=== PATIENT | male | born 1945 | race Caucasian/White ===

== ENCOUNTER → 2017-10-05 | Outpatient (CLI) | payer MEDICARE ==
--- NOTE | 2017-10-05 17:05 | CONS ---
CONSULTATION REASON FOR CONSULTATION: Consultation note for sleep apnea. PRIMARY CARE PHYSICIAN: Dr. Yazan Mcwilliams HISTORY OF PRESENT ILLNESS: This is a 72-year-old male patient coming in accompanied by his due to concerns of sleep apnea. The patient does not seem to be much concerned, however his is reporting snoring and she is reporting some apneas. She has witnessed some apneas. The patient goes to bed around 11:00 pm and within few hours he wakes up and sometimes he goes to a recliner when he sleeps on a recliner for the rest of the night and he ultimately gets out of bed and resumes activities around 7-8 o'clock in the morning. He is averaging 6 to 7 hours of sleep. He naps easily while watching TV or when he is inactive. He has been driving long distances to see family and he is able to drive 14 hours without having to fall asleep. No restlessness in the lower extremities. No nightmares. No grinding of the teeth. No anxiety or panic attacks. No obesity. No recent weight gain. No alcoholism. PAST MEDICAL HISTORY: Hyperlipidemia and BPH. PAST SURGICAL HISTORY: Includes tonsillectomy, arthroscopy of the knee and vasectomy and rotator cuff surgery. DRUG ALLERGIES: PENICILLIN. OUTPATIENT MEDICATIONS: Include Zocor 20 a day. Flomax 0.4 mg p.o. daily. SOCIAL HISTORY: The patient is a nonsmoker. No history of alcohol. No history of IV drugs. He is retired. FAMILY HISTORY: Negative for sleep apnea. REVIEW OF SYSTEMS: 12-point review of system was done. No history of insomnia. No history of nocturia. No choking or gasping for air. No sleepwalking. No dry mouth. No anxiety or panic attacks. No palpitation. No heartburn. No restlessness in the lower extremities. No sleep talking. No sweating. No anxiety. No claustrophobia. No sexual dysfunction. No history of depression. No history of any weight gain. PHYSICAL EXAMINATION: BP is 139/79, pulse 78, respirations 16, temp 98.3, saturation 99% on room air. Weight is 175, height is 5 feet 7 inches, neck size 14.5 inches. General appearance calm comfortable. HEENT: Mallampati Class 1. There is no goiter or neck masses. LUNGS: Clear to auscultation. HEART: Sounds regular rhythm. Normal S1, S2. No S3, S4. No murmurs. ABDOMEN: Soft, nontender. No organomegaly. EXTREMITIES: No edema. No cyanosis or clubbing. NEUROLOGIC: A and O x3. No focal neurological deficits. PSYCHIATRIC: No anxiety or depression or any panic. IMPRESSION: 1. Obstructive sleep apnea with overall low clinical suspicion. Currently under investigation. 2. Hyperlipidemia. 3. Benign prostatic hypertrophy. PLAN: 1. Home sleep study will be ordered. 2. We will review the results of the home sleep study and make further recommendations accordingly. 3. Overall suspicion for clinical assessment of KOBI is low. MMODL / IJN: [id number] /
== END ==
LOC: SLEEP 15:10
PROVIDERS: ATTEND Internal Medicine Critical Care Medicine
DX: G47.33 Obstructive sleep apnea (adult) (pediatric) (principal); E78.5 Hyperlipidemia, unspecified; N40.0 Benign prostatic hyperplasia without lower urinary tract symptoms; Z88.0 Allergy status to penicillin; Z79.899 Other long term (current) drug therapy
CPT/HCPCS: 99211

== ENCOUNTER 2022-04-09 06:34 | Day surgery (SDC) | payer MEDICARE ==
[2022-04-08 09:14] VITALS: BMI 25.4
[~2022-04-09 06:34] MED LIST: ALPRAZolam 0.25 MG TAB PO PRN; ALPRAZolam 0.5 MG TAB PO PRN; ASPIRIN 325 MG TAB PO STA; ATORVASTATIN 80 MG TAB PO STA; HEPARIN SODIUM,PORCINE 10,000 UNIT in SODIUM CHLORIDE 0.9% 1,000 ML IRRIGATION PRN; HEPARIN SODIUM,PORCINE 2,500 UNIT in SODIUM CHLORIDE 0.9% 250 ML IRRIGATION PRN; NITROGLYCERIN SL TABS 0.4 MG TAB SUBLINGUAL PRN; SODIUM CHLORIDE 0.9% 1,000 ML in EMPTY BAG 1 BAG IV ONE
[2022-04-09] MEDS ORDERED: SODIUM CHLORIDE 0.9% 1,000 ML IV ONE (06:49)
[2022-04-09 07:05] VITALS: RESP 16; TEMP 97.8
[2022-04-09] MEDS ORDERED: VERAPAMIL 2.5 MG/ML 2 ML AMP ONE (07:15)
[2022-04-09] MEDS ORDERED: HEPARIN SODIUM 1,000 UN/ML (10ML VL) ONE (07:33)
[2022-04-09] MEDS ORDERED: MIDAZOLAM 2 MG/2 ML VIAL IVP ONE (07:39)
[2022-04-09] MEDS ORDERED: LIDOCAINE 1% INJ 10MG/ML (5 ML VIAL-PF) SQ ONE (07:39)
[2022-04-09] MEDS: VERAPAMIL SYRINGE (5 MG/10 ML) INTRAARTER ONE ×2 (07:44→08:18)
[2022-04-09] MEDS: HEPARIN SODIUM 1,000 UN/ML (10ML VL) IV ONE ×2 (07:49→08:07)
[2022-04-09] MEDS ORDERED: NITROGLYCERIN 1000MCG/10ML SYRINGE INTRACORON ONE (08:14)
[2022-04-09] MEDS ORDERED: IOPAMIDOL-370 100ML BTL INJ ONE (08:18)
[2022-04-09] MEDS ORDERED: SODIUM CHLORIDE 0.9% 1,000 ML IV SCH (08:30)
[2022-04-09 09:06] LABS: Appearance,Urine Clear (Clear); Bilirubin,Urine Negative (Negative); Blood,Urine Negative (Negative); Color,Urine Colorless; Glucose,Urine (UA) Negative (Negative); Ketones,Urine Negative (Negative); Leukocyte Esterase,Urine Negative (Negative); Nitrite,Urine Negative (Negative); PH, Urine 6.5 (5.0-8.0); Protein,Urine Negative (Negative); Specific Gravity,Urine 1.012 (1.001-1.035); Urobilinogen,Urine <2.0 mg/dL (<2.0)
--- NOTE | 2022-04-09 10:02 | CC ---
CARDIAC CATHETERIZATION REPORT Moderate conscious sedation time was 40 minutes. Patient was administered Versed. Oxygen saturation, hemodynamics and EKG were monitored closely. PROCEDURE PERFORMED: 1. Left heart catheterization and coronary angiography. 2. Fractional flow reserve assessment of a mid LAD lesion. CLINICAL INFORMATION: Mr. Bladimir Dillon is a 77-year-old gentleman with a history of hyperlipidemia, borderline hypertension, and benign prostatic hypertrophy who recently had a positive stress test with inferior wall ischemia and this was a stress echo at 85% of his predicted maximal heart rate. He has exertional shortness of breath, which is anginal equivalence. He was advised cardiac cath after due discussion regarding risks, benefits and options. PROCEDURE NOTE: Under local anesthesia and strict aseptic precautions, a 6-Omani introducer was placed in the right radial artery using a micropuncture needle technique. A JR4 and JL3 0.5 catheters were used to check the coronary arteries and coronary angiogram was performed. The same right catheter was used to check LV pressures, but LV gram was not performed. Following this, I proceeded to do an FFR assessment of his LAD. Using a 3.5 left Linda guide catheter, I cannulated the left coronary artery. I used an Omni J-tipped wire and this wire was calibrated, zeroed out side and then again calibrated in the aorta. The wire was then advanced and positioned in the mid LAD well beyond the area of disease. IFR was obtained after giving nitroglycerin intracoronary and also moving the guide catheter out of the ostium. The IFR assessment was performed and 3 different readings were performed, one was 0.70. The other was 0.77, third was 0.79. This was significant. The LAD lesion is therefore long and diseased segment with an abnormal IFR. The patient received a total of 5500 units of intravenous heparin and ACT was 249. Following the completion of procedure, the sheath was taken out and TR band applied as per protocol with good saturation of the fingers of the right hand of 95%. CARDIAC CATHETERIZATION FINDINGS: The left ventricular end-diastolic pressure was 8-10 mmHg without any gradient across aortic valve. CORONARY ANGIOGRAPHY FINDINGS: RIGHT CORONARY ARTERY: This is a codominant vessel, has an ostial stenosis of maybe 40%, proximal segment has 30-40 percent lesion. Mid segment has a long area of disease of anywhere from 70-99 percent with sluggish flow distally. It appears that the vessel bifurcates into PDA and PLV, but the flow is sluggish beyond the tight mid lesion which appears to be chronic and subtotal occlusion. There are collaterals filling the distal aspect of the RCA also. The RCA therefore is a codominant, highly diseased vessel with a 99% stenosis in the long area of mid segment disease. LEFT MAIN CORONARY ARTERY: This is a short patent vessel free of significant disease that bifurcates into LAD and circumflex. LEFT ANTERIOR DESCENDING CORONARY ARTERY: This is a good caliber vessel that extends along the anterior wall. It gives off a small septal branch very proximally and also gives off a diagonal branch. After the septal and diagonal branches, there is a long area of disease of about 60-70 percent after which the caliber improves and the vessel gives off another diagonal branch and another septal branch and runs towards the apex with mild diffuse disease of anywhere from 40-50 percent. LAD therefore has a long mid segment 60-70 percent lesion which is quite significant. I performed IFR of this vessel and IFR was significant, was less than 0.79, suggesting that the mid LAD lesion is significant and requires intervention. LEFT POSTERIOR CIRCUMFLEX CORONARY ARTERY: Technically this is a codominant or a dominant vessel, large in caliber, gives off a first obtuse marginal which has an independent 70 to 80% lesion in the mid portion. Immediately after the obtuse marginal, there is an eccentric 80% lesion of a very large caliber circumflex that distally bifurcates into 2 branches. The inferior branch has about a 70% lesion. Superior branch runs in the PDA and PLV distribution and that has no significant disease. The circumflex therefore has a first OM independent lesion of 70 to 80%, mid circumflex of 70-80 percent and distal branch of circumflex also has a 70-80 percent lesion. There is moderate calcification of all coronary arteries. LV-gram was not performed. FINAL IMPRESSION: This patient has a codominant system with a subtotal occlusion of RCA that seems to fill from collaterals from the left system predominantly from the LAD and septal branches. Left main is normal. LAD has a long diseased segment which is 60-70 percent angiographically, but IFR is significant suggesting it is a significant lesion in the LAD. Circumflex is a large caliber vessel. Has an independent lesion in the first obtuse marginal of about 70-80 percent, mid circumflex immediately after the first OM of 70-80 percent and distal branch of circumflex also has a 70-80 percent lesion. Filling pressures are normal and there was no gradient. RECOMMENDATIONS: I am recommending aortocoronary bypass surgery with a graft to the LAD, first obtuse marginal and distal branch of circumflex and distal branch of RCA. The patient will have an echocardiogram today. I will discuss my thoughts in detail with Dr. Elkins who will see him as an outpatient in about a week on the . Findings were discussed with the patient as well as his and he will be discharged later on today on metoprolol, aspirin simvastatin and he will be hydrated. We will check his renal function shortly. MMODL / IJN: [id number] /
[2022-04-09 10:55] LABS: Partial Thromboplastin Time 55.8 sec (22.0-30.0); Prothrombin Time 10.8 sec (9.0-12.0)
--- NOTE | 2022-04-09 11:38 | US ---
EXAMINATION TYPE: US carotid duplex BILAT DATE OF EXAM: 04/09/2022 COMPARISON: NONE CLINICAL HISTORY: 77-year-old male preop cardiac surgery. pre bypass TECHNIQUE: Carotid duplex ultrasound examination. Indirect upper criteria is visualized. FINDINGS: EXAM MEASUREMENTS: RIGHT: Peak Systolic Velocity (PSV) cm/sec ----- Right CCA: 76.4 ----- Right ICA: 73.8 ----- Right ECA: 91.9 ICA/CCA ratio: 1.0 RIGHT: End Diastole cm/sec ----- Right CCA: 10.1 ----- Right ICA: 15.4 ----- Right ECA: 6.2 LEFT: Peak Systolic Velocity (PSV) cm/sec ----- Left CCA: 62.5 ----- Left ICA: 68.6 ----- Left ECA: 55.5 ICA/CCA ratio: 1.1 LEFT: End Diastole cm/sec ----- Left CCA: 10.1 ----- Left ICA: 18.0 ----- Left ECA: 9.2 VERTEBRALS (direction of flow): Right Vertebral: Antegrade Left Vertebral: Antegrade Rhythm: Normal Super[employer]ising [employer] notes: Mild heterogeneous plaque with no significant stenosis IMPRESSION: No hemodynamically significant internal carotid artery stenosis on either side. Criteria for Assigning % of Stenosis / Diameter reduction (Estimation based on the indirect measurements of the internal carotid artery velocities (ICA PSV). 1. Normal (no stenosis)=ICA PSV < 125 cm/s: ratio < 2.0: ICA EDV<40 cm/s. 2. Less than 50% stenosis=ICA PSV < 125 cm/s: ratio < 2.0: ICA EDV<40 cm/s. 3. 50 to 69% stenosis=ICA PSV of 125 to 230 cm/s: ration 2.0 ? 4.0: ICA EDV 40-100 cm/s. 4. Greater than 70% stenosis to near occlusion= ICA PSV > 230 cm/s: ratio > 4.0: ICA EDV > 100 cm/s. 5. Near occlusion= ICA PSV velocities may be low or undetectable: variable ratio and ICA EDV. 6. Total occlusion=unable to detect flow.
--- NOTE | 2022-04-09 12:50 | CA ---
Transthoracic Echo Report Name: Bladimir Dillon Age: 77 Gender: M : 1945 Exam Date: 04/09/2022 09:30 Exam Location: [facility] Ht (in): 69 Wt (lb): 172 Ordering Physician: Klaudia Aggarwal MD ([id number]) Attending/Referring Phys: [employer] Research Engineer Diana Warren RDCS Procedure CPT: Indications: FULL ECHO FOR LV FUNCTION Cardiac Hx: Hx of heart cath. Technical Quality: Good Contrast 1: Total Dose (mL): Contrast 2: Total Dose (mL): MEASUREMENTS (Male / Female) Normal Values 2D ECHO LV Diastolic Diameter PLAX 5.6 cm 4.2 - 5.9 / 3.9 - 5.3 cm LV Systolic Diameter PLAX 3.1 cm IVS Diastolic Thickness 0.9 cm 0.6 - 1.0 / 0.6 - 0.9 cm LVPW Diastolic Thickness 1.3 cm 0.6 - 1.0 / 0.6 - 0.9 cm LV Relative Wall Thickness 0.4 RV Internal Dim ED PLAX 2.1 cm LVOT Diameter 2.1 cm LA Volume 38.8 cm??? 18 - 58 / 22 - 52 cm??? M-MODE Aortic Root Diameter MM 4.2 cm LA Systolic Diameter MM 3.3 cm LA Ao Ratio MM 0.8 MV E Point Septal Separation 1.7 cm AV Cusp Separation MM 2.1 cm DOPPLER AV Peak Velocity 146.9 cm/s AV Peak Gradient 8.6 mmHg AI Peak Velocity 217.3 cm/s AI Peak Gradient 18.9 mmHg AI Pressure Half Time 599.1 ms MV Area PHT 3.0 cm??? MR Peak Velocity 108.5 cm/s MR Peak Gradient 4.7 mmHg Mitral E Point Velocity 59.4 cm/s Mitral A Point Velocity 73.1 cm/s Mitral E to A Ratio 0.8 MV Deceleration Time 256.7 ms MV E' Velocity 5.6 cm/s Mitral E to MV E' Ratio 10.5 TR Peak Velocity 164.2 cm/s TR Peak Gradient 10.8 mmHg Right Ventricular Systolic Press 15.0 mmHg FINDINGS Left Ventricle Normal left ventricular size, wall thickness, systolic function with no obvious regional wall motion abnormalities. Normal left ventricular diastolic filling pattern for age. The ejection fraction is visually estimated at 55-60 %. Right Ventricle The right ventricle is normal in size and function. Right Atrium The right atrium is normal in size. Left Atrium The left atrium is normal in size. Mitral Valve Structurally normal mitral valve without significant stenosis or prolapse. There is trace mitral regurgitation. Aortic Valve Structurally normal aortic valve without significant sclerosis or stenosis. Focal thickening of the aortic valve cusps. There is mild aortic regurgitation. Tricuspid Valve Structurally normal tricuspid valve without significant stenosis. Pulmonary artery systolic pressure is normal. Trace tricuspid regurgitation. Pulmonic Valve Structurally normal pulmonic valve without significant stenosis. There is no pulmonic regurgitation. Pericardium Normal pericardium without effusion. Aorta Normal aortic root dimension. CONCLUSIONS Normal left ventricular dimension and systolic function Poorly visualized intracardiac valves Please see above for further details Previewed by: Dr. Wong Cazares MD (Electronically Signed) Final Date: 09 Apr 2022 12:49
--- NOTE | 2022-04-09 14:30 | P.GSCN ---
History of Present Illness Consult date: 04/09/22 Reason for Consult: Coronary artery disease Requesting physician: Klaudia Aggarwal History of present illness: This is a 77-year-old active gentleman who follows in the outpatient basis with Dr. Mcwilliams for primary care and Dr. JORGE Aggarwal for cardiology. He has a previous medical history of hypertension, hyperlipidemia, BPH, skin cancer, never smoker, and family history of premature coronary artery disease with father from myocardial infarction at 49 years old. Recently he has been experiencing shortness of breath with mild to moderate activity. He was recommended to undergo stress testing which was abnormal, subsequently he was recommended to undergo heart catheterization which was completed today and which demonstrated triple-vessel coronary artery disease. Due to these findings consultations plac ed to Dr. Elkins from cardiothoracic surgery. Review of Systems Review of systems was completed and was negative except as noted - Cardiovascular Reports decreased exercise tolerance, Reports dyspnea on exertion Past Medical History Past Medical History: Coronary Artery Disease (CAD), Cancer, Hyperlipidemia, Prostate Disorder, Sleep Apnea/CPAP/BIPAP Additional Past Medical History / Comment(s): SOB and fatigue with activity, no cpap used, constipation/diarrhea, skin cancer, COVID 06/2021 History of Any Multi-Drug Resistant Organisms: None Reported Past Surgical History: Hernia Repair, Orthopedic Surgery, Tonsillectomy Additional Past Surgical History / Comment(s): left knee arthroscopy, skin cancer removed from face, Past Anesthesia/Blood Transfusion Reactions: No Reported Reaction Smoking Status: Never smoker - Past Family History Father Family Medical History: Myocardial Infarction ([place]) Medications and Allergies Home Medications Medication Instructions Recorded Confirmed Type Aspirin [Adult Low Dose Aspirin EC] 81 mg PO QA 04/08/22 04/09/22 History Metoprolol Tartrate [Lopressor] 25 mg PO QAM 04/08/22 04/09/22 History Simvastatin [Zocor] 40 mg PO HS 04/08/22 04/09/22 History Tamsulosin [Flomax] 0.4 mg PO 04/08/22 04/09/22 History Allergies Allergy/AdvReac Type Severity Reaction Status Date / Time Penicillins Allergy Rash/Hives Verified 04/08/22 09:03 Surgical - Exam Vital Signs Temp Pulse Resp BP Pulse Ox 97.8 F 65 16 145/65 97 04/09/22 07:03 04/09/22 07:03 04/09/22 07:03 04/09/22 07:03 04/09/22 07:03 CONSTITUTIONAL: Awake and alert, appears comfortable, cooperative, well- developed, well-nourished, no pain, no acute distress EYES: Pupils equal, round, reactive to light, normal ocular movement ENT: Moist mucous membranes without oral lesions present NECK: No masses, no bruits, trachea midline RESPIRATORY: Lungs sounds clear to auscultation bilaterally. Respirations even, nonlabored. Currently on room air with oxygen saturation 98%. Strong cough. No chest wall deformities. No clubbing or cyanosis present CARDIOVASCULAR: S1, S2 present. Regular rate and rhythm, sinus rhythm on t elemetry. Palpable peripheral pulses bilaterally. No edema present. No calf pain or tenderness noted. No significant lower extremity varicosities noted. GASTROINTESTINAL: Abdomen soft, nontender, nondistended without masses or organomegaly noted. There is no rebound or guarding present. Active bowel sounds present 4 quadrants. GENITOURINARY: Deferred INTEGUMENTARY: Skin is warm and dry with evidence of good perfusion. NEUROLOGIC: Cranial nerves II through XII intact, normal coordination, no obvious motor or sensory deficits, speech is normal MUSKULOSKELETAL: Able to move all extremities, strength equal bilaterally, normal posture PSYCHIATRIC: Alert and oriented to person place and time, appropriate affect, intact judgment and insight Results - Labs Abnormal Lab Results - Last 24 Hours (Table) 04/09/22 Range/Units 10:15 APTT 55.8 H (22.0-30.0) sec - Imaging Additional studies: Heart catheterization films reviewed Assessment and Plan Assessment: 1. Triple-vessel coronary artery disease 2. Hypertension 3. Hyperlipidemia 4. BPH 5. Skin cancer 6. Never smoker 7. Family history of premature coronary artery disease with father from myocardial infarction at 49 years old Plan: The patient was seen and examined in the extended stay unit with present. Chart/diagnostics reviewed. The usual perioperative course of coronary artery bypass surgery was discussed in detail with the patient and his , risks and benefits were reviewed, all questions were answered. Preoperative testing was initiated. Follow-up appointment was made with Dr. Elkins per Dr. Aggarwal's request on 04/17/2022 at 2:15 in the afternoon. Our contact information was given to the patient. He may be discharged from the extended stay unit once testing has been completed and when okay with Dr. Aggarwal. Thank you Dr. Aggarwal for this consult, we look forward to working with you in the care of your patient. I have personally seen and examined the patient, performed the documentation and the assessment and plan as written. Number of minutes spent on the visit: 30. ASHLYN Killian I have personally seen and examined the patient, reviewed the documentation and agree with the assessment and plan as written. Number of minutes spent on the visit: 40. Jimena Elkins MD
[2022-04-09 17:03] VITALS: BP 155/72; PULSE 58
[2022-04-09 21:14] LABS: Hepatitis A Antibody IgM Nonreactive (Nonreactive); Hepatitis B Core IgM Nonreactive (Nonreactive); Hepatitis B Surface Antigen Nonreactive (Nonreactive); Hepatitis C IgG Antibody Nonreactive (Nonreactive)
--- NOTE | 2022-04-12 08:49 | US ---
EXAMINATION TYPE: US vein mapping BIL DATE OF EXAM: 04/09/2022 10:16 AM COMPARISON: NONE CLINICAL HISTORY: preop cardiac surgery. pre CABG SIDE PERFORMED: Bilateral TECHNIQUE: Lower extremity saphenous vein is examined and measured utilizing real time linear array sonography. Patient History: Smoker: no Heart Disease: no Previous DVT: no Vascular Surgery: no Discoloration: no Hypertension: no Diabetes: no Paralysis: no Varicosities: no Edema: no DUPLEX FINDINGS: Greater Saphenous: Color flow seen Measurements in mm: Right Greater Saphenous: Groin: 6.3 x 6.0 mm High Thigh: 2.6 x 3.2 mm Mid Thigh: 3.0 x 3.2 mm Above Knee: 2.5 x 3.0 mm Knee: 2.7 x 2.8 mm Below Knee: 2.6 x 3.2 mm Mid Calf: 3.0 x 2.9 mm At Ankle: 2.5 x 2.8 mm Left Greater Saphenous: Groin: 4.6 x 4.8 mm High Thigh: 4.3 x 4.47 mm Mid Thigh: 3.3 x 4.1 mm Above Knee: 3.2 x 3.2 mm Knee: 3.1 x 3.6 mm Below Knee: 2.5 x 2.8 mm Mid Calf: 2.5 x 3.0 mm At Ankle: 2.9 x 3.5 mm IMPRESSION: 1. Bilateral GSV measurements listed above. 2. Performing surgeon to determine viability as conduit.
== END 2022-04-09 16:05 | disposition home or self-care (01) ==
LOC: CATHCVL 06:34
PROVIDERS: ATTEND Internal Medicine Interventional Cardiology
DX: I25.110 Atherosclerotic heart disease of native coronary artery with unstable angina pectoris (principal); I25.84 Coronary atherosclerosis due to calcified coronary lesion; R94.39 Abnormal result of other cardiovascular function study; E78.00 Pure hypercholesterolemia, unspecified; E78.5 Hyperlipidemia, unspecified; Z82.49 Family history of ischemic heart disease and other diseases of the circulatory system; Z20.822 Contact with and (suspected) exposure to COVID-19; Z98.890 Other specified postprocedural states; Z86.16 Personal history of COVID-19; Z79.82 Long term (current) use of aspirin; Z79.899 Other long term (current) drug therapy; Z88.0 Allergy status to penicillin
CPT/HCPCS: 94150; 93306; 93571; 93458; 80074; 85610; 85730; 81003; 87070; 87635; 93970; 93880; C1887; C1894; C1769 ×2; J2250; J2001; J1644; Q9967

== ENCOUNTER → 2022-05-05 | Outpatient (CLI) | payer MEDICARE ==
--- NOTE | 2022-05-05 09:07 | P.PN ---
Progress Note - Text Progress Note Date: 05/05/22 A 5 m walk test was completed with the patient, tolerated well. Time 1: 1.62 seconds, time 2: 1.60 seconds, time 3: 1.67 seconds. An STS risk score was calculated and discussed with the patient.
== END | disposition home or self-care (01) ==
LOC: LABPAT 07:55
PROVIDERS: ATTEND Thoracic Surgery (Cardiothoracic Vascular Surgery)
DX: Z53.9 Procedure and treatment not carried out, unspecified reason (principal)

== ENCOUNTER 2022-05-11 05:34 | Inpatient (IN) | payer MEDICARE ==
[2022-05-05 09:47] LABS: Partial Thromboplastin Time 24.1 sec (22.0-30.0); Prothrombin Time 10.8 sec (9.0-12.0)
[2022-05-06 07:52] LABS: HCT 41.4 % (39.6-50.0); HGB 13.8 g/dL (13.0-17.0); MCH 30.9 pg (27.0-32.0); MCHC 33.3 g/dL (32.0-37.0); MCV 92.6 fL (80.0-97.0); Magnesium 2.1 mg/dL (1.5-2.4); NRBC Per 100 WBC 0 /100 WBCS (0.0-0.0); Platelet Count 142 X 10*3/uL (140-440); RBC 4.47 X 10*6/uL (4.40-5.60); RDW 12.5 % (11.5-14.5); WBC 4.63 X 10*3/uL (4.50-10.00)
[2022-05-06 07:53] LABS: African American GFR (CKD) 51.4 (60.0-200.0); Albumin 4.4 g/dL (3.8-4.9); Albumin/Globulin Ratio 1.86 (1.60-3.17); Anion Gap 22.5 mmol/L (10.00-18.00); BUN/Creat Ratio 17.72 Ratio (12.00-20.00); Blood Urea Nitrogen 26.4 mg/dL (9.0-27.0); Calcium 9.5 mg/dL (8.7-10.3); Carbon Dioxide 15.6 mmol/L (20.0-27.5); Globulin 2.4 g/dL (1.6-3.3); Non-African American GFR(CKD) 44.3 (60.0-200.0); Potassium 4.4 mmol/L (3.5-5.5); Total Bilirubin 0.6 mg/dL (0.30-1.20); Total Protein 6.8 g/dL (6.2-8.2)
[~2022-05-11 05:34] MED LIST changes: +ALBUMIN HUMAN 25% 50 ML IV ONE; +ALBUMIN HUMAN 5% 500 ML IVPB ONE; -ALPRAZolam 0.25 MG TAB PO PRN; -ALPRAZolam 0.5 MG TAB PO PRN; +ASPIRIN 325 MG TAB PO ONE; -ASPIRIN 325 MG TAB PO STA; +ATORVASTATIN 10 MG TAB PO ONE; -ATORVASTATIN 80 MG TAB PO STA; +CALCIUM CHLORIDE 100 MG/ML 10 ML SYRINGE IV ONE; +CHLORHEXIDINE GLUCONATE 15 ML CUP MUCOUS MEM ONE; +CLEVIDIPINE BUTYRATE 25 MG in EMPTY BAG 1 BAG IV ONE; +DILTIAZEM 125 MG in SODIUM CHLORIDE 0.9% 100 ML IV ONE; +ELECTROLYTE-A SOLUTION 1,000 ML with POTASSIUM CHLORIDE 100 MEQ, MAGNESIUM SULFATE 16 M... IV ONE; +ELECTROLYTE-A SOLUTION 1,000 ML with POTASSIUM CHLORIDE 40 MEQ, MAGNESIUM SULFATE 16 ME... IV ONE; +HEPARIN SODIUM 1,000 UN/ML (10ML VL) IV ONE; -HEPARIN SODIUM,PORCINE 10,000 UNIT in SODIUM CHLORIDE 0.9% 1,000 ML IRRIGATION PRN; -HEPARIN SODIUM,PORCINE 2,500 UNIT in SODIUM CHLORIDE 0.9% 250 ML IRRIGATION PRN; +HEPARIN SODIUM,PORCINE 5,000 UNIT in SODIUM CHLORIDE 0.9% 500 ML 500 ML IV ONE; +INSULIN REGULAR 100 UNIT in SODIUM CHLORIDE 0.9% 100 ML IV ONE; +LACTATED RINGERS 1,000 ML IV ONE; +MAGNESIUM SULFATE 16.24 MEQ in EMPTY SYRINGE 1 SYR IV ONE; +MANNITOL 25% 12.5 GM/50 ML VIAL IV ONE; +METOPROLOL TARTRATE 12.5 MG TAB PO ONE; +NITROGLYCERIN SL TABS 0.4 MG TAB SUBLINGUAL ONE; -NITROGLYCERIN SL TABS 0.4 MG TAB SUBLINGUAL PRN; +NITROGLYCERIN-D5W PMX 25 MG/250 ML BTL IV ONE; +NITROGLYCERIN-D5W PMX 50 MG in DEXTROSE/WATER 1 250ML.BAG IV ONE; +NOREPINEPHRINE 4 MG in SODIUM CHLORIDE 0.9% 250 ML IV ONE; +PAPAVERINE 360 MG in SODIUM CHLORIDE 0.9% 90 ML IV ONE; +PHENYLEPHRINE 10 MG/ML VIAL IV ONE; +PHENYLEPHRINE 40 MG in SODIUM CHLORIDE 0.9% 250 ML IV ONE; +PROTAMINE SULFATE 10 MG/ML 25 ML VIAL IV ONE; +PROTAMINE SULFATE 250 MG in EMPTY BAG 1 BAG IV ONE; +SODIUM BICARB 8.4% 50 ML SYR (1 MEQ/ML) IV ONE; +SODIUM CHLORIDE 0.9% 1,000 ML IV ONE; -SODIUM CHLORIDE 0.9% 1,000 ML in EMPTY BAG 1 BAG IV ONE; +TRANEXAMIC ACID 2,000 MG in SODIUM CHLORIDE 0.9% 80 ML IV ONE; +ceFAZolin 1,000 MG in SODIUM CHLORIDE 0.9% IRRIGATIO 1,000 ML IRRIGATION ONE; +propofoL 1,000 MG/100 ML VIAL IV ONE
[2022-05-11 06:22] LABS: Glucose,Whole Blood 115 mg/dL (70-110)
[2022-05-11] MEDS: MUPIROCIN 2% OINT 22 GM TUBE NASAL ONE ×2 (06:34→20:47)
[2022-05-11] MEDS ORDERED: SODIUM CHLORIDE 0.9% IRRIG 1,000 ML BTL IRRIGATION ONE (08:09)
[2022-05-11] MEDS ORDERED: PHENYLEPHRINE-0.9% NACL SYG 1,000 MCG/10 ML SYRINGE ONE (08:09)
[2022-05-11] MEDS ORDERED: INSULIN REGULAR 100 UNIT/ML VIAL (IV) ONE (08:09)
[2022-05-11] MEDS ORDERED: ePHEDrine 50 MG/ML 1 ML VIAL ONE (08:09)
[2022-05-11] MEDS ORDERED: SODIUM CHLORIDE 0.9% 100 ML BAG ONE (08:09)
[2022-05-11] MEDS ORDERED: VECURONIUM 10 MG VIAL IV ONE (08:09)
[2022-05-11] MEDS ORDERED: ceFAZolin 1,000 MG VIAL ONE (08:09)
[2022-05-11] MEDS ORDERED: MAGNESIUM SULFATE 4 MEQ/ML 10ML VIAL ONE (08:09)
[2022-05-11] MEDS ORDERED: TRANEXAMIC ACID IN NACL,ISO-OS 1,000 MG/100 ML BAG ONE (08:09)
[2022-05-11] MEDS ORDERED: ELECTROLYTE-R (PH 7.4) 1,000 ML IV.SOLN IV ONE (08:09)
[2022-05-11] MEDS ORDERED: LIDOCAINE 2% SYG (PF) 100 MG/5 ML ONE (08:09)
[2022-05-11] MEDS ORDERED: MIDAZOLAM HCL 10 MG/10 ML VIAL ONE (08:09)
[2022-05-11] MEDS ORDERED: PROPOFOL 10 MG/ML 20 ML VIAL IV ONE (08:09)
[2022-05-11] MEDS ORDERED: fentaNYL (PF) 50 MCG/ML 50 ML VIAL ONE (08:09)
[2022-05-11] MEDS ORDERED: PROTAMINE SULFATE 10 MG/ML 25 ML VIAL IV ONE (08:09)
[2022-05-11] MEDS ORDERED: HEPARIN SODIUM,PORCINE 10,000 UNIT/ML 1 ML VIAL ONE (08:09)
[2022-05-11 08:53] LABS: ABG Base Excess 1.1 mmol/L; ABG Glucose Whole Blood 112 mg/dL (75-99); ABG HCO3 25 mmol/L (21-25); ABG Hematocrit 35 % (34.0-46.0); ABG Ionized Calcium 4.8 mg/dL (4.5-5.3); ABG PCO2 38 mmHg (35-45); ABG PH 7.43 (7.35-7.45); ABG PO2 279 mmHg (83-108); ABG Potassium Whole Blood 4.3 mmol/L (3.4-4.5); ABG Sodium Whole Blood 139 mmol/L (135-146); ABG TCO2 27 mmol/L (19-24)
--- NOTE | 2022-05-11 09:07 | P.ANPRN ---
Procedure Note - Anesthesia - Invasive Line Right Arterial Line Time Out Performed: Yes Date of Procedure: 05/11/22 Time of Procedure: 07:15 Location of Patient: PreOp Preparation: Sterile Prep, Sterile Dressing Arterial Line Location: Radial Ultrasound Used: No Narrative: Right radial arterial line placed by STEAM CONDITIONING OPERATOR Right Central Line Time Out Performed: Yes Date of Procedure: 05/11/22 Time of Procedure: 07:40 Location of Patient: PreOp Preparation: Sterile Prep, Sterile Dressing Ultrasound Used: Yes Purpose - Visualization and Identification of Vasculature: Yes Needle Guage: 18 Image Stored and Saved: Yes Narrative: Right IJ Cordis placed using seldinger technique under u/s guidance Right Cunningham [place] Time Out Performed: Yes Date of Procedure: 05/11/22 Time of Procedure: 07:50 Location of Patient: PreOp Preparation: Sterile Prep, Sterile Dressing Narrative: R IJ SWAN had all ports flushed and balloon tested. Advanced until RV and then PA waveforms obtained. Secured @ 45 cm. Position in main PA confirmed on YAMILKA
[2022-05-11] MEDS ORDERED: SODIUM CHLORIDE 0.9% 500 ML 500 ML with HEPARIN SODIUM,PORCINE 5,000 UNIT IV ONE ×2 (09:52)
[2022-05-11] MEDS ORDERED: PAPAVERINE 360 MG in SODIUM CHLORIDE 0.9% 90 ML IV ONE (09:53)
[2022-05-11] MEDS ORDERED: ceFAZolin 1,000 MG in SODIUM CHLORIDE 0.9% 1,000 ML IRRIGATION ONE (09:53)
[2022-05-11 10:04] LABS: ABG Base Excess -0.4 mmol/L; ABG Glucose Whole Blood 140 mg/dL (75-99); ABG HCO3 25 mmol/L (21-25); ABG Hematocrit 34 % (34.0-46.0); ABG Ionized Calcium 4.9 mg/dL (4.5-5.3); ABG Lactic Acid Whole Blood 1.2 mmol/L (0.5-1.6); ABG Oxygen Saturation 99.9 % (94-97); ABG PCO2 43 mmHg (35-45); ABG PH 7.37 (7.35-7.45); ABG PO2 285 mmHg (83-108); ABG Potassium Whole Blood 4.3 mmol/L (3.4-4.5); ABG Sodium Whole Blood 139 mmol/L (135-146); ABG TCO2 26 mmol/L (19-24)
[2022-05-11 10:43] LABS: ABG Base Excess -0.1 mmol/L; ABG Glucose Whole Blood 117 mg/dL (75-99); ABG HCO3 25 mmol/L (21-25); ABG Hematocrit 26 % (34.0-46.0); ABG Ionized Calcium 4.1 mg/dL (4.5-5.3); ABG Lactic Acid Whole Blood 1.3 mmol/L (0.5-1.6); ABG PCO2 39 mmHg (35-45); ABG PH 7.41 (7.35-7.45); ABG PO2 282 mmHg (83-108); ABG Potassium Whole Blood 4.6 mmol/L (3.4-4.5); ABG Sodium Whole Blood 134 mmol/L (135-146); ABG TCO2 26 mmol/L (19-24)
[2022-05-11 11:27] LABS: ABG Base Excess 0.4 mmol/L; ABG Glucose Whole Blood 127 mg/dL (75-99); ABG HCO3 25 mmol/L (21-25); ABG Hematocrit 25 % (34.0-46.0); ABG Ionized Calcium 4.2 mg/dL (4.5-5.3); ABG Lactic Acid Whole Blood 1.9 mmol/L (0.5-1.6); ABG PCO2 39 mmHg (35-45); ABG PH 7.42 (7.35-7.45); ABG PO2 417 mmHg (83-108); ABG Potassium Whole Blood 4.7 mmol/L (3.4-4.5); ABG Sodium Whole Blood 136 mmol/L (135-146); ABG TCO2 26 mmol/L (19-24)
[2022-05-11] MEDS ORDERED: CALCIUM GLUCONATE IN NACL 2 GM in SALINE 1 100ML.BAG IVPB PRN (12:38)
[2022-05-11] MEDS ORDERED: DEXMEDETOMIDINE/0.9% NACL(PMX) 400 MCG in EMPTY BAG 1 BAG IV SCH (12:38)
[2022-05-11] MEDS ORDERED: hydrALAZINE HCL 20 MG/ML 1 ML VIAL IVP PRN (12:38)
[2022-05-11] MEDS ORDERED: AMIODARONE 360 MG in DEXTROSE 5% IN WATER 200 ML IV PRN ×2 (12:38)
[2022-05-11] MEDS ORDERED: CLEVIDIPINE BUTYRATE 25 MG in EMPTY BAG 1 BAG IV SCH (12:38)
[2022-05-11] MEDS ORDERED: Potassium Replacement Protocol 1 EACH MISC MISCELLANE PRN (12:38)
[2022-05-11] MEDS ORDERED: Magnesium Replacement Protocol 1 EACH MISC MISCELLANE PRN (12:38)
[2022-05-11] MEDS ORDERED: NITROGLYCERIN-D5W PMX 50 MG in DEXTROSE/WATER 1 250ML.BAG IV SCH (12:38)
[2022-05-11] MEDS ORDERED: IPRATROPIUM-ALBUTEROL 3 ML NEB INHALATION PRN (12:38)
[2022-05-11] MEDS: LACTATED RINGERS 1,000 ML IV SCH (13:11)
[2022-05-11 13:25] LABS: Glucose,Whole Blood 137 mg/dL (70-110)
[2022-05-11] MEDS ORDERED: INSULIN REGULAR 100 UNIT in SODIUM CHLORIDE 0.9% 100 ML IV SCH (13:30)
[2022-05-11] MEDS ORDERED: IPRATROPIUM-ALBUTEROL 3 ML NEB INHALATION SCH (13:30)
[2022-05-11 13:42] LABS: Basophils % (A) 0 %; Eosinophils # (A) 0.1 k/uL (0-0.7); Eosinophils % (A) 1 %; HCT 26.6 % (39.0-53.0); HGB 9.3 gm/dL (13.0-17.5); Lymphocytes # (A) 0.8 k/uL (1.0-4.8); Lymphocytes % (A) 11 %; MCH 32.7 pg (25.0-35.0); MCHC 35.1 g/dL (31.0-37.0); MCV 93.3 fL (80.0-100.0); Mean Platelet Volume 9.5; Monocytes # (A) 0.2 k/uL (0-1.0); Monocytes % (A) 3 %; Neutrophils # (A) 6.2 k/uL (1.3-7.7); Neutrophils % (A) 84 %; RBC 2.85 m/uL (4.30-5.90); RDW 12.6 % (11.5-15.5); WBC 7.3 k/uL (3.8-10.6)
--- NOTE | 2022-05-11 13:45 | P.CNPUL ---
History of Present Illness Consult date: 05/11/22 Requesting physician: Rhett Elkins Reason for consult: other (Ventilator/critical care management) Chief complaint: Coronary artery disease History of present illness: This is a 77-year-old male patient with a known history of hypertension, hyperlipidemia, BPH. Lifelong nonsmoker. He had presented here 04/09/2022 for an elective cardiac catheterization and was found to have triple-vessel coronary artery disease. Echocardiogram had revealed preserved left ventricular systolic function with ejection fraction 55-60%. No significant valvular abnormalities. He was recommended coronary artery bypass grafting. He was brought in today for the surgery and had undergone a PETERS to LAD, saphenous vein grafts to the OM1 and OM 2. He is seen now in the immediate postop period up in the in the intensive care unit. He is intubated on mechanical ventilator. Current settings are assist-control mode with a respiratory rate of 14, tidal volume 450, FiO2 100% and a PEEP of 5. Blood gases are pending. Labs are pending. Chest x-ray pending. He was initially on norepinephrine drip at 0.02 mcg/kg/m that is currently on hold. He is a nitroglycerin drip at 5 mcg/m. Propofol at 20 mcg/kg/m. Lactated Ringer's at 50 MLS per hour. He has a right [place]Laine catheter in place. Cardiac output 4.2. Cardiac index 2.2. PA pressure 22/11. He has a left, mediastinal and right chest tubes in place. Right radial arterial line in place. He received 2 units of fresh frozen plasma and 1 unit of platelets thus far. Blood glucose 137. Review of Systems ROS unobtainable: due to endotracheal tube Past Medical History Past Medical History: Coronary Artery Disease (CAD), Cancer, Hearing Disorder / Deafness, Hyperlipidemia, Osteoarthritis (OA), Prostate Disorder, Sleep Apnea/CPAP/BIPAP Additional Past Medical History / Comment(s): SOB and fatigue with activity. No cpap used. Constipation/diarrhea. Hx skin cancer. Hx COVID 07/12. Bilateral hearing aid use. History of Any Multi-Drug Resistant Organisms: None Reported Past Surgical History: Hernia Repair, Orthopedic Surgery, Tonsillectomy Additional Past Surgical History / Comment(s): Left knee arthroscopy, skin cancer removed from face. Past Anesthesia/Blood Transfusion Reactions: No Reported Reaction Past Psychological History: No Psychological Hx Reported Smoking Status: Never smoker Past Alcohol Use History: Occasional Past Drug Use History: None Reported - Past Family History Father Family Medical History: Myocardial Infarction (SD) Medications and Allergies Home Medications Medication Instructions Recorded Confirmed Type Aspirin [Adult Low Dose Aspirin EC] 81 mg PO QA 04/08/22 05/05/22 History Metoprolol Tartrate [Lopressor] 25 mg PO QA 04/08/22 05/05/22 History Simvastatin [Zocor] 40 mg PO 04/08/22 05/05/22 History Tamsulosin [Flomax] 0.4 mg PO 04/08/22 05/05/22 History Allergies Allergy/AdvReac Type Severity Reaction Status Date / Time Penicillins Allergy Rash/Hives Verified 05/11/22 06:01 Physical Exam Vitals: Vital Signs Temp Pulse Resp BP BP Pulse Ox FiO2 05/11/22 13:18 100 05/11/22 06:04 97.0 F L 88 16 148/74 139/72 98 Intake and Output 05/10/22 05/11/22 05/11/22 22:59 06:59 14:59 Intake Total 200 768 Output Total 1155 Balance 200 -387 Intake: IV 200 52 Blood Product 716 Ffp 24 Pher Acda Cnt2 217 Unit [id number] Ffp 24 Pher Acda Cnt2 216 Unit [id number] Platelet Pheresis Pas 283 Psoralen Unit [id number] Output: Urine 555 Estimated Blood Loss 600 GENERAL EXAM: Intubated, sedated 69-year-old male patient, comfortable in no ap parent distress. HEAD: Normocephalic. EYES: Sluggish reaction of pupils, equal size. NOSE: Clear with pink turbinates. THROAT: Oral endotracheal and gastric tube secured in place. No erythema or exudates. NECK: Right IJ [place]Laine catheter in place. No masses, no JVD. CHEST: Sternal dressing dry and intact. Her mother in place. Right, left, mediastinal chest tubes in place. Pacer wires in place LUNGS: Equal air entry with no crackles, wheeze, rhonchi or dullness. CVS: S1 and S2 normal with no audible murmur, regular rhythm. ABDOMEN: No hepatosplenomegaly, normal bowel sounds, no guarding or rigidity. SPINE: No scoliosis or deformity SKIN: No rashes CENTRAL NERVOUS SYSTEM: Sedated, tone is normal in all 4 extremities. EXTREMITIES: Bilateral Bright wraps to the lower extremities. Right radial arterial line placed. There is no peripheral edema. No clubbing, no cyanosis. Peripheral pulses are intact. Results - Laboratory Findings CBC and BMP: 05/05/22 08:04 05/05/22 08:04 ABG ABG pH 7.42 (7.35-7.45) 05/11/22 11:28 ABG pCO2 39 mmHg (35-45) 05/11/22 11:28 ABG pO2 417 mmHg (83-108) H 05/11/22 11:28 ABG O2 Saturation 100.0 % (94-97) H 05/11/22 11:28 PT/INR, D-dimer PT 10.8 sec (9.0-12.0) 05/05/22 08:04 INR 1.0 (<1.2) 05/05/22 08:04 Abnormal lab findings: Abnormal Labs 05/05/22 05/05/22 05/11/22 08:04 08:04 06:20 ABG pO2 ABG Total CO2 ABG O2 Saturation ABG Hematocrit ABG Sodium ABG Potassium ABG Ionized Calcium ABG Glucose ABG Lactic Acid Hemoglobin Carbon Dioxide 15.6 L Anion Gap 22.50 H Est GFR (CKD-EPI)AfAm 51.4 L Est GFR (CKD-EPI)NonAf 44.3 L Glucose 130 H POC Glucose (mg/dL) 115 H Arterial Blood Potassium Arterial Blood Glucose Crossmatch See Detail 05/11/22 05/11/22 05/11/22 08:54 10:05 10:44 ABG pO2 279 H 285 H 282 H ABG Total CO2 27 H 26 H 26 H ABG O2 Saturation 100.0 H 99.9 H 100.0 H ABG Hematocrit 26 L ABG Sodium 134 L ABG Potassium 4.6 H ABG Ionized Calcium 4.1 L ABG Glucose 112 H 140 H 117 H ABG Lactic Acid Hemoglobin 11.4 L 11.0 L 8.5 L Carbon Dioxide Anion Gap Est GFR (CKD-EPI)AfAm Est GFR (CKD-EPI)NonAf Glucose POC Glucose (mg/dL) Arterial Blood Potassium 4.6 H Arterial Blood Glucose 112 H 140 H 117 H Crossmatch 05/11/22 05/11/22 11:28 13:22 ABG pO2 417 H ABG Total CO2 26 H ABG O2 Saturation 100.0 H ABG Hematocrit 25 L ABG Sodium ABG Potassium 4.7 H ABG Ionized Calcium 4.2 L ABG Glucose 127 H ABG Lactic Acid 1.9 H Hemoglobin 8.2 L Carbon Dioxide Anion Gap Est GFR (CKD-EPI)AfAm Est GFR (CKD-EPI)NonAf Glucose POC Glucose (mg/dL) 137 H Arterial Blood Potassium 4.7 H Arterial Blood Glucose 127 H Crossmatch Assessment and Plan Assessment: 1 Coronary artery disease status post coronary artery bypass grafting utilizing a PETERS to the LAD, saphenous vein grafts to the OM1 and of 12. Postoperative day #0 2 History of hypertension 3 History of hyperlipidemia 4 Lifelong nonsmoker. 5 Benign prostatic hyperplasia 6 Family history of coronary artery disease, his father passed at age 49 from myocardial infarction Plan: The patient was seen and evaluated ABGs, chest x-ray and labs are pending Continue current ventilator settings for now We'll plan for early extubation protocol if tolerated Continue to monitor closely here in the intensive care unit We will continue to follow and make further recommendations based on his clinical status I have personally seen and examined the patient, performed the documentation and the assessment and plan as written. Number of minutes spent on the visit: 20.
[2022-05-11 14:02] LABS: INR 1.2 (<1.2); Partial Thromboplastin Time 27.9 sec (22.0-30.0); Prothrombin Time 13.1 sec (9.0-12.0)
[2022-05-11 14:06] LABS: Ionized Calcium 4.2 mg/dL (4.5-5.3)
[2022-05-11 14:07] LABS: ABG Base Excess 1.1 mmol/L; ABG HCO3 26 mmol/L (21-25); ABG PCO2 43 mmHg (35-45); ABG PH 7.39 (7.35-7.45); ABG PO2 >400 mmHg (83-108); ABG TCO2 27 mmol/L (19-24)
[2022-05-11 14:10] LABS: Glucose,Whole Blood 130 mg/dL (70-110)
[2022-05-11 14:12] LABS: Platelet Count 71 k/uL (150-450); RBC Morphology Normal
[2022-05-11] MEDS: ALBUMIN HUMAN 5% 250 ML in EMPTY BAG 1 BAG IVPB PRN ×3 (14:15→14:50)
[2022-05-11 14:18] LABS: Albumin 2.6 g/dL (3.5-5.0); Calcium 7.4 mg/dL (8.4-10.2); Total Bilirubin 0.7 mg/dL (0.2-1.3); Total Protein 4.5 g/dL (6.3-8.2)
[2022-05-11 14:20] LABS: Potassium 4.3 mmol/L (3.5-5.1)
[2022-05-11 14:21] LABS: Magnesium 2.5 mg/dL (1.6-2.3)
--- NOTE | 2022-05-11 14:40 | XR ---
EXAMINATION TYPE: XR chest 1V portable DATE OF EXAM: 05/11/2022 COMPARISON: Chest x-ray 04/01/2022 HISTORY: Post median sternotomy, cardiac surgery TECHNIQUE: Single frontal view of the chest is obtained. FINDINGS: Patient is post median sternotomy and left atrial appendage clip placement. There are epic ardial pacing leads, endotracheal tube, NG tube, mediastinal drain, right jugular intravenous sheath and coaxial [place]-L[place] catheter catheter, left and right chest tube overlying appropriate positions. D istal aspect of the NG tube may be folded. No evident pneumothorax or sizable effusion. Heart size ma y be accentuated by technique. Suspect some basilar atelectasis or possibly lung contusion IMPRESSION: Satisfactory postoperative chest x-ray, NG tube may be folded at the level of the gastro esophageal junction. A Yellow level critical message alert has been initiated for Diana Sarmiento via the [employer] tical Results System on 05/11/2022 2:37 PM. This message alert has been sent to Diana Sarmiento via the pr eferences provided by the clinician for the receipt of Radiology Critical Findings. Message ID [id number].
--- NOTE | 2022-05-11 14:43 | P.ANPRN ---
Procedure Note - Anesthesia - YAMILKA Intraop Pre Bypass YAMILKA Intraop - Anesthesia Indication: CAD Date of Procedure: 05/11/22 Pre-operative Diagnosis: CAD Post-operative Diagnosis: Same + immobile, calcified aortic NCC Surgeon: Rhett Elkins Left Ventricle: EF 50% Ejection Fraction: Normal Regional Wall Motion Abnormalities: None Left Ventricle Hypertrophy: No R. Ventricle Function: Normal Aortic Valve: NCC immobile and calcified. 2+ AI. No significant Anatomy: Trileaflet Aortic Stenosis: None Aortic Regurgitation: Mild Mitral Stenosis: None Mitral Regurgitation: Mild Tricuspid Stenosis: None Tricuspid Regurgitation: Trace Pulmonic Stenosis: None Pulmonic Regurgitation: Trace R. Atrial Dilation: No R. Atrial PFO: No L. Atrial Dilation: No Aorta: Descending aorta with protruding calcium < 5 mm Aortic Dissection: No Aortic Calcification: Moderate Plural Effusion: None - YAMILKA Intraop Post Bypass YAMILKA Intraop Post Bypass Procedure Performed: CABG Left Ventricle: EF 50 Ejection Fraction: Normal Regional Wall Motion Abnormalities: None R. Ventricle Function: Normal Aortic Valve: Unchanged Mitral Valve: Moderate MR Tricuspid: Unchanged Pulmonic: Unchanged Aortic Dissection: No
[2022-05-11 15:11] LABS: Glucose,Whole Blood 127 mg/dL (70-110)
[2022-05-11] MEDS: ACETAMINOPHEN IV (For NPO) 1,000 MG in EMPTY BAG 1 BAG IVPB SCH ×2 (15:20→20:11)
[2022-05-11 16:05] LABS: Glucose,Whole Blood 125 mg/dL (70-110)
[2022-05-11] MEDS: HEPARIN SODIUM,PORCINE/PF 5,000 UNIT/0.5 ML SYRINGE SQ SCH ×2 (16:41→23:50)
[2022-05-11 17:09] LABS: Glucose,Whole Blood 136 mg/dL (70-110)
[2022-05-11 17:57] LABS: Basophils % (A) 0 %; Eosinophils % (A) 1 %; HCT 26.4 % (39.0-53.0); HGB 9.2 gm/dL (13.0-17.5); Lymphocytes # (A) 0.6 k/uL (1.0-4.8); Lymphocytes % (A) 10 %; MCH 33.1 pg (25.0-35.0); MCHC 34.9 g/dL (31.0-37.0); MCV 94.8 fL (80.0-100.0); Mean Platelet Volume 9.2; Monocytes # (A) 0.4 k/uL (0-1.0); Monocytes % (A) 6 %; Neutrophils # (A) 4.7 k/uL (1.3-7.7); Neutrophils % (A) 83 %; RBC 2.78 m/uL (4.30-5.90); RDW 12.7 % (11.5-15.5); WBC 5.7 k/uL (3.8-10.6)
[2022-05-11 18:01] LABS: Glucose,Whole Blood 150 mg/dL (70-110)
[2022-05-11 18:03] LABS: Platelet Count 78 k/uL (150-450)
[2022-05-11 18:08] LABS: ABG Base Excess 0.6 mmol/L; ABG HCO3 27 mmol/L (21-25); ABG PCO2 53 mmHg (35-45); ABG PH 7.31 (7.35-7.45); ABG PO2 119 mmHg (83-108); ABG TCO2 29 mmol/L (19-24)
[2022-05-11 18:12] LABS: ABG Oxygen Saturation 95.8 % (94-97); Allen Test Performed? no
[2022-05-11 18:13] LABS: Allen Test Performed? no
--- NOTE | 2022-05-11 18:22 | CONS ---
CONSULTATION REASON FOR CONSULTATION: Advice regarding hypertension and other multiple medical issues, requested by Cardiothoracic Surgery. HISTORY OF PRESENT ILLNESS: This 77-year-old gentleman with a past medical history of multiple medical problems, including hypertension, CAD, CABG. The patient underwent PETERS to LAD, SVG to OM1 and OM2. Postoperatively the patient is being sedated and mechanically ventilated at this time. The patient is also on insulin drip at 1 unit/hour as well as Cleviprex drip also. A detailed history could not be taken from the patient; most of the history is taken from my discussion with staff. PAST MEDICAL HISTORY: History of hypertension, hyperlipidemia, prostate disorder. HOME MEDICATIONS: Reviewed. They include Flomax 0.4 at bedtime and other medications. ALLERGIES: PENICILLIN. Family history, social history, review of systems could not be taken. PHYSICAL EXAMINATION: Pulse is 86, blood pressure 137/55, respiration 14. HEENT: Conjunctivae normal. NECK: No jugular venous distention. CARDIOVASCULAR: S1, S2 muffled. RESPIRATION: Breath sounds diminished at the bases. A few scattered rhonchi. ABDOMEN: Soft, nontender. LEGS: No edema. NERVOUS SYSTEM: Patient is sedated. SKIN: No ulcer, rash, bleeding. JOINTS: No active deforming arthropathy. LABS: Reviewed. Hemoglobin 9.3. Other labs are reviewed. ASSESSMENT: 1. Coronary artery disease, status post coronary artery bypass grafting. 2. Elevated blood sugars. 3. Hyperlipidemia. 4. Degenerative joint disease. 5. History of prostate disorder. 6. History of sleep apnea. RECOMMENDATIONS AND DISCUSSION: In this 77-year-old gentleman who presented after surgery, at this time patient is currently on mechanical ventilation. Dr. Snyder is following the patient for possible weaning soon. Otherwise, vent settings are noted. I would recommend resuming the home medications, incentive spirometry once the patient is extubated and DVT prophylaxis. We will follow the patient closely with you. The patient may be asked to follow up with primary physician after discharge. Thank you for letting us participate in the care of this patient. MMBRENDANL / JÚNIORN: [id number] /
--- NOTE | 2022-05-11 18:48 | OP ---
OPERATIVE REPORT DATE OF OPERATION: 05/11/2022 ATTENDING SURGEON: Dr. Rhett Elkins. ASSISTANTS: 1. SUSIE Leblanc. 2. SUSIE Gonzalez. PREOPERATIVE DIAGNOSIS: 1. Unstable angina. 2. Three-vessel coronary artery disease. POSTOPERATIVE DIAGNOSIS: 1. Unstable angina. 2. Three-vessel coronary artery disease. PROCEDURE: Coronary bypass grafting x3 with left internal mammary to left anterior descending artery, reverse saphenous vein graft off the aorta to the first obtuse marginal artery and the second obtuse marginal artery with right lower extremity greater saphenous vein endoscopic vein harvesting, clip ligation of the left atrial appendage with a 35 mm AtriClip and intraoperative transesophageal echocardiogram. ANESTHESIA: General. BLOOD LOSS: 500 mL. SUMMARY: The patient was brought to the operating room, placed in supine position. Following administration of a general endotracheal anesthetic, placement of a [place]-Laine catheter arterial line, adequate IV access and Blas catheter, patient was carefully prepped and draped in normal sterile fashion using chlorhexidine paint and sterile towels. A midline incision in the chest was made and the sternum divided. Pericardium was opened. Heart size was normal . The aorta was soft. Left pleural space was left internal mammary harvested at its pedicle from the xiphoid to the left subclavian vein. It was 1.8 quality with good flow. The patient was heparinized to an ACT of greater than 480. The aorta and vena cava were cannulated. Antegrade and retrograde cardioplegia catheters were positioned in the ascending aorta and the coronary sinus. The patient was placed on bypass. Cross-clamp was placed, heart arrested with one liter of antegrade followed by 500 mL retrograde cardioplegia. Retrograde cardioplegia was delivered 300 to 500 mL at the end of each 20-minute interval. Please note the preoperative YAMILKA showed good LV function. There was 1 to 2+ central aortic insufficiency, but not more than mild to moderate. Distal anastomosis was constructed with reverse saphenous vein graft anastomosis to the second obtuse marginal artery constructed using a 7-0 Prolene running suture. Caliber of this vessel was 1.75 mm. Next, saphenous vein anastomosis to the second obtuse marginal artery was constructed in a similar fashion. Caliber of this vessel was 1.75 mm. Next, left internal mammary was beveled. Distal anastomosis in the mid left anterior descending artery constructed using an 8-0 Prolene running suture. Caliber of this vessel was 1.75 mm. Under a single cross-clamp two proximal anastomoses were constructed in the ascending aorta using 6-0 Prolene running suture. The patient was placed head down. The aortic root was vented. One liter of warm blood retrograde cardioplegia was run. Cross-clamp was removed, the vein grafts de-aired. Once beating in normal sinus rhythm, the patient was brought off bypass. The first base of the left atrial appendage was measured and a 35 mm AtriClip was secured at the base, officially obliterating the left atrial appendage. The patient came off bypass uneventfully with good hemodynamics, protamine delivered, patient decannulated. Atrial ventricular pacing wires were placed. Mediastinal left and right pleural chest tubes were placed. At this point the sternum was closed with four #6 sternal wires and two [id number] Clyde sternal cable closure devices. Skin and subcutaneous tissue and fascia was closed in 3 layers. No complications. Patient tolerated the procedure well and was taken to the cardiovascular intensive care unit in stable condition. MMODL / IJN: [id number] /
[2022-05-11 19:06] LABS: Glucose,Whole Blood 151 mg/dL (70-110)
[2022-05-11 19:55] LABS: Glucose,Whole Blood 146 mg/dL (70-110)
[2022-05-11 20:17] LABS: HCT 27.9 % (39.0-53.0); HGB 9.7 gm/dL (13.0-17.5); MCH 32.9 pg (25.0-35.0); MCHC 34.6 g/dL (31.0-37.0); MCV 94.9 fL (80.0-100.0); Platelet Count 82 k/uL (150-450); RBC 2.94 m/uL (4.30-5.90); RDW 12.8 % (11.5-15.5); WBC 7.5 k/uL (3.8-10.6)
[2022-05-11] MEDS: IPRATROPIUM-ALBUTEROL 3 ML NEB INHALATION SCH (20:21)
[2022-05-11 20:58] LABS: Glucose,Whole Blood 135 mg/dL (70-110)
[2022-05-11 21:58] LABS: Glucose,Whole Blood 132 mg/dL (70-110)
[2022-05-11 22:59] LABS: Glucose,Whole Blood 128 mg/dL (70-110)
[2022-05-11 23:54] LABS: Glucose,Whole Blood 124 mg/dL (70-110)
[2022-05-12 01:04] LABS: Glucose,Whole Blood 123 mg/dL (70-110)
[2022-05-12] MEDS: HYDROcodone/APAP 5-325MG 1 EACH TAB PO PRN ×6 (01:10→20:36)
[2022-05-12] MEDS: ONDANSETRON 4 MG/2 ML VIAL IVP PRN ×2 (01:27→21:50)
[2022-05-12 01:55] LABS: Glucose,Whole Blood 127 mg/dL (70-110)
[2022-05-12 02:51] LABS: Glucose,Whole Blood 123 mg/dL (70-110)
[2022-05-12 03:51] LABS: Glucose,Whole Blood 126 mg/dL (70-110)
[2022-05-12 05:06] LABS: Glucose,Whole Blood 121 mg/dL (70-110)
[2022-05-12 05:21] LABS: Basophils % (A) 0 %; Eosinophils % (A) 0 %; HGB 9.7 gm/dL (13.0-17.5); Lymphocytes # (A) 0.3 k/uL (1.0-4.8); Lymphocytes % (A) 6 %; MCH 33.3 pg (25.0-35.0); MCHC 34.6 g/dL (31.0-37.0); MCV 96.3 fL (80.0-100.0); Mean Platelet Volume 10.5; Monocytes # (A) 0.3 k/uL (0-1.0); Monocytes % (A) 6 %; Neutrophils % (A) 88 %; RBC 2.91 m/uL (4.30-5.90); RDW 13.3 % (11.5-15.5); WBC 5.7 k/uL (3.8-10.6)
[2022-05-12 05:32] LABS: Platelet Count 87 k/uL (150-450)
[2022-05-12 05:56] LABS: Glucose,Whole Blood 123 mg/dL (70-110)
[2022-05-12] MEDS: ALBUMIN HUMAN 5% 250 ML in EMPTY BAG 1 BAG IVPB PRN ×4 (06:04→13:16)
[2022-05-12 06:48] LABS: Glucose,Whole Blood 124 mg/dL (70-110)
[2022-05-12] MEDS ORDERED: ACETAMINOPHEN TAB 325 MG TAB PO PRN (07:03)
--- NOTE | 2022-05-12 07:03 | P.PN ---
Subjective Progress Note Date: 05/12/22 Principal diagnosis: Status post CABG. This is a 77-year-old male patient with a known history of hypertension, hyperlipidemia, BPH. Lifelong nonsmoker. He had presented here 04/09/2022 for an elective cardiac catheterization and was found to have triple-vessel coronary artery disease. Echocardiogram had revealed preserved left ventricular systolic function with ejection fraction 55-60%. No significant valvular abnormalities. He was recommended coronary artery bypass grafting. He was brought in today for the surgery and had undergone a PETERS to LAD, saphenous vein grafts to the OM1 and OM 2. He is seen now in the immediate postop period up in the in the intensive care unit. He is intubated on mechanical ventilator. Current settings are assist-control mode with a respiratory rate of 14, tidal volume 450, FiO2 100% and a PEEP of 5. Blood gases are pending. Labs are pending. Chest x-ray pending. He was initially on norepinephrine drip at 0.02 mcg/kg/m that is currently on hold. He is a nitroglycerin drip at 5 mcg/m. Propofol at 20 mcg/kg/m. Lactated Ringer's at 50 MLS per hour. He has a right Colwich-Laine catheter in place. Cardiac output 4.2. Cardiac index 2.2. PA pressure 22/11. He has a left, mediastinal and right chest tubes in place. Right radial arterial line in place. He received 2 units of fresh frozen plasma and 1 unit of platelets thus far. Blood glucose 137. Progress note dated 05/12/2022. This is a 77-year-old male who is postop day #1, status post three-vessel bypass grafting. The patient's doing well. The patient is currently on 2 L nasal cannula. The patient's getting insulin drip at 0.5 units per hour. The patien t's getting lactated Ringer's at 50 mL an hour, and nitroglycerin at 5 mcg/m. The patient had an uneventful night according to the nurses. The patient was extubated in routine fashion. White count 5.7, hemoglobin 9.7, hematocrit 28, platelet count 87,000. Chest x-ray shows postsurgical changes, bibasilar atelectasis, and bilateral chest tubes. Objective - Vital Signs Vital signs: Vital Signs Temp 36.5 F L 05/11/22 18:45 Pulse 78 05/12/22 06:00 Resp 20 05/12/22 06:00 BP 113/54 05/12/22 03:00 Pulse Ox 96 05/12/22 06:00 FiO2 3 05/12/22 00:00 Intake & Output 05/11/22 05/11/22 05/12/22 06:59 18:59 06:59 Intake Total 200 1877.9 2171.730 Output Total 2865 1074 Balance 200 -987.1 1097.730 Weight 81.4 kg Intake: IV 200 1161.0 1617.0 ACETAMINOPHEN IV (For NPO 100 400 ) 1,000 mg In Empty Bag 1 bag @ 400 mls/hr IVPB Q6H JOSSY Rx#:[id number] Albumin Human 5% 250 ml 500 250 In Empty Bag 1 bag @ 250 mls/hr IVPB Q1HR PRN Rx#: [id number] CO/CI 250 Calcium Gluconate in NaCl 100 2 gm In Saline 1 100ml. bag @ 100 mls/hr IVPB ONCE PRN Rx#:[id number] Lactated Ringers 1,000 ml 300 600 @ 50 mls/hr IV .Q20H JOSSY Rx#:[id number] Nitroglycerin-D5w Pmx 50 9.0 18.0 mg In Dextrose/Water 1 250ml.bag @ 5 MCG/MIN 1.5 mls/hr IV .Q24H JOSSY Rx#: [id number] Pressure bags 99 ceFAZolin 2 gm In Sodium 100 Chloride 0.9% 50 ml @ 100 mls/hr IVPB Q8HR JOSSY Rx# :[id number] Intake, IV Titration 0.9 14.730 Amount Clevidipine Butyrate 25 0.9 mg In Empty Bag 1 bag @ 1 MG/HR 2 mls/hr IV .Q24H JOSSY Rx#:[id number] Insulin Regular 100 unit 14.730 In Sodium Chloride 0.9% 100 ml @ Per Protocol IV .Q0M JOSSY Rx#:[id number] Oral 540 Blood Product 716 Ffp 24 Pher Acda Cnt2 217 Unit [id number] Ffp 24 Pher Acda Cnt2 216 Unit [id number] Platelet Pheresis Pas 283 Psoralen Unit [id number] Output: Chest Tube Drainage 335 403 Chest Tube Left Lateral 95 171 Chest Chest Tube Mediastinal 160 220 Chest Tube Right Lateral 80 12 Chest Urine 1930 671 Estimated Blood Loss 600 Other: Voiding Method Indwelling Catheter Indwelling Catheter ABP, PAP, CO, CI - Last Documented Arterial Blood Pressure 129/40 Pulmonary Artery Pressure 17/4 Cardiac Output 4.2 Cardiac Index 2.2 - Exam No acute distress, oriented 3. Currently on 2 L nasal cannula. HEENT examination is grossly unremarkable. Neck supple. Full range of motion. No adenopathy thyromegaly or neck vein distention. Cardiovascular examination reveals regular rhythm rate. S1-S2 normal. No S3 or S4. No discernible murmur noted. Heart rate 78 bpm. Lungs reveal mostly clear breath sounds. Scattered rhonchi are noted. No wheezes or crackles. Breath sounds equal bilaterally. Saturations are between 96 and 98%. Abdomen soft bowel sounds are heard. No masses or tenderness. Extremities are intact. No cyanosis clubbing or edema. Skin is without rash or lesion. Neurologic examination is brief but nonfocal. - Labs CBC & Chem 7: 05/12/22 04:59 05/11/22 13:22 Labs: Abnormal Lab Results - Last 24 Hours (Table) 05/05/22 05/11/22 05/11/22 Range/Units 08:04 08:54 10:05 RBC (4.30-5.90) m/uL Hgb (13.0-17.5) gm/dL Hct (39.0-53.0) % Plt Count (150-450) k/uL Lymphocytes # (1.0-4.8) k/uL PT (9.0-12.0) sec INR (<1.2) ABG pH (7.35-7.45) ABG pCO2 (35-45) mmHg ABG pO2 279 H 285 H (83-108) mmHg ABG HCO3 (21-25) mmol/L ABG Total CO2 27 H 26 H (19-24) mmol/L ABG O2 Saturation 100.0 H 99.9 H (94-97) % ABG Hematocrit (34.0-46.0) % ABG Sodium (135-146) mmol/L ABG Potassium (3.4-4.5) mmol/L ABG Ionized Calcium (4.5-5.3) mg/dL ABG Glucose 112 H 140 H (75-99) mg/dL ABG Lactic Acid (0.5-1.6) mmol/L Hemoglobin 11.4 L 11.0 L (13.0-17.5) gm/dL Sodium (137-145) mmol/L BUN (9-20) mg/dL Glucose (74-99) mg/dL POC Glucose (mg/dL) (70-110) mg/dL Calcium (8.4-10.2) mg/dL Ionized Calcium Suni (4.5-5.3) mg/dL Magnesium (1.6-2.3) mg/dL Total Protein (6.3-8.2) g/dL Albumin (3.5-5.0) g/dL Arterial Blood Potassium (3.4-4.5) mmol/L Arterial Blood Glucose 112 H 140 H (75-99) mg/dL Crossmatch See Detail 05/11/22 05/11/22 05/11/22 Range/Units 10:44 11:28 13:22 RBC 2.85 L (4.30-5.90) m/uL Hgb 9.3 L (13.0-17.5) gm/dL Hct 26.6 L (39.0-53.0) % Plt Count 71 L (150-450) k/uL Lymphocytes # 0.8 L (1.0-4.8) k/uL PT (9.0-12.0) sec INR (<1.2) ABG pH (7.35-7.45) ABG pCO2 (35-45) mmHg ABG pO2 282 H 417 H (83-108) mmHg ABG HCO3 (21-25) mmol/L ABG Total CO2 26 H 26 H (19-24) mmol/L ABG O2 Saturation 100.0 H 100.0 H (94-97) % ABG Hematocrit 26 L 25 L (34.0-46.0) % ABG Sodium 134 L (135-146) mmol/L ABG Potassium 4.6 H 4.7 H (3.4-4.5) mmol/L ABG Ionized Calcium 4.1 L 4.2 L (4.5-5.3) mg/dL ABG Glucose 117 H 127 H (75-99) mg/dL ABG Lactic Acid 1.9 H (0.5-1.6) mmol/L Hemoglobin 8.5 L 8.2 L (13.0-17.5) gm/dL Sodium (137-145) mmol/L BUN (9-20) mg/dL Glucose (74-99) mg/dL POC Glucose (mg/dL) (70-110) mg/dL Calcium (8.4-10.2) mg/dL Ionized Calcium Suni (4.5-5.3) mg/dL Magnesium (1.6-2.3) mg/dL Total Protein (6.3-8.2) g/dL Albumin (3.5-5.0) g/dL Arterial Blood Potassium 4.6 H 4.7 H (3.4-4.5) mmol/L Arterial Blood Glucose 117 H 127 H (75-99) mg/dL Crossmatch 05/11/22 05/11/22 05/11/22 Range/Units 13:22 13:22 13:22 RBC (4.30-5.90) m/uL Hgb (13.0-17.5) gm/dL Hct (39.0-53.0) % Plt Count (150-450) k/uL Lymphocytes # (1.0-4.8) k/uL PT 13.1 H (9.0-12.0) sec INR 1.2 H (<1.2) ABG pH (7.35-7.45) ABG pCO2 (35-45) mmHg ABG pO2 (83-108) mmHg ABG HCO3 (21-25) mmol/L ABG Total CO2 (19-24) mmol/L ABG O2 Saturation (94-97) % ABG Hematocrit (34.0-46.0) % ABG Sodium (135-146) mmol/L ABG Potassium (3.4-4.5) mmol/L ABG Ionized Calcium (4.5-5.3) mg/dL ABG Glucose (75-99) mg/dL ABG Lactic Acid (0.5-1.6) mmol/L Hemoglobin (13.0-17.5) gm/dL Sodium 136 L (137-145) mmol/L BUN 25 H (9-20) mg/dL Glucose 122 H (74-99) mg/dL POC Glucose (mg/dL) 137 H (70-110) mg/dL Calcium 7.4 L (8.4-10.2) mg/dL Ionized Calcium Suni 4.2 L (4.5-5.3) mg/dL Magnesium 2.5 H (1.6-2.3) mg/dL Total Protein 4.5 L (6.3-8.2) g/dL Albumin 2.6 L (3.5-5.0) g/dL Arterial Blood Potassium (3.4-4.5) mmol/L Arterial Blood Glucose (75-99) mg/dL Crossmatch 05/11/22 05/11/22 05/11/22 Range/Units 14:05 14:10 15:10 RBC (4.30-5.90) m/uL Hgb (13.0-17.5) gm/dL Hct (39.0-53.0) % Plt Count (150-450) k/uL Lymphocytes # (1.0-4.8) k/uL PT (9.0-12.0) sec INR (<1.2) ABG pH (7.35-7.45) ABG pCO2 (35-45) mmHg ABG pO2 >400 H (83-108) mmHg ABG HCO3 26 H (21-25) mmol/L ABG Total CO2 27 H (19-24) mmol/L ABG O2 Saturation 100.0 H (94-97) % ABG Hematocrit (34.0-46.0) % ABG Sodium (135-146) mmol/L ABG Potassium (3.4-4.5) mmol/L ABG Ionized Calcium (4.5-5.3) mg/dL ABG Glucose (75-99) mg/dL ABG Lactic Acid (0.5-1.6) mmol/L Hemoglobin (13.0-17.5) gm/dL Sodium (137-145) mmol/L BUN (9-20) mg/dL Glucose (74-99) mg/dL POC Glucose (mg/dL) 130 H 127 H (70-110) mg/dL Calcium (8.4-10.2) mg/dL Ionized Calcium Suni (4.5-5.3) mg/dL Magnesium (1.6-2.3) mg/dL Total Protein (6.3-8.2) g/dL Albumin (3.5-5.0) g/dL Arterial Blood Potassium (3.4-4.5) mmol/L Arterial Blood Glucose (75-99) mg/dL Crossmatch 05/11/22 05/11/22 05/11/22 Range/Units 16:04 16:06 17:07 RBC 2.78 L (4.30-5.90) m/uL Hgb 9.2 L (13.0-17.5) gm/dL Hct 26.4 L (39.0-53.0) % Plt Count 78 L (150-450) k/uL Lymphocytes # 0.6 L (1.0-4.8) k/uL PT (9.0-12.0) sec INR (<1.2) ABG pH (7.35-7.45) ABG pCO2 (35-45) mmHg ABG pO2 (83-108) mmHg ABG HCO3 (21-25) mmol/L ABG Total CO2 (19-24) mmol/L ABG O2 Saturation (94-97) % ABG Hematocrit (34.0-46.0) % ABG Sodium (135-146) mmol/L ABG Potassium (3.4-4.5) mmol/L ABG Ionized Calcium (4.5-5.3) mg/dL ABG Glucose (75-99) mg/dL ABG Lactic Acid (0.5-1.6) mmol/L Hemoglobin (13.0-17.5) gm/dL Sodium (137-145) mmol/L BUN (9-20) mg/dL Glucose (74-99) mg/dL POC Glucose (mg/dL) 125 H 136 H (70-110) mg/dL Calcium (8.4-10.2) mg/dL Ionized Calcium Suni (4.5-5.3) mg/dL Magnesium (1.6-2.3) mg/dL Total Protein (6.3-8.2) g/dL Albumin (3.5-5.0) g/dL Arterial Blood Potassium (3.4-4.5) mmol/L Arterial Blood Glucose (75-99) mg/dL Crossmatch 05/11/22 05/11/22 05/11/22 Range/Units 18:00 18:07 19:05 RBC (4.30-5.90) m/uL Hgb (13.0-17.5) gm/dL Hct (39.0-53.0) % Plt Count (150-450) k/uL Lymphocytes # (1.0-4.8) k/uL PT (9.0-12.0) sec INR (<1.2) ABG pH 7.31 L (7.35-7.45) ABG pCO2 53 H (35-45) mmHg ABG pO2 119 H (83-108) mmHg ABG HCO3 27 H (21-25) mmol/L ABG Total CO2 29 H (19-24) mmol/L ABG O2 Saturation (94-97) % ABG Hematocrit (34.0-46.0) % ABG Sodium (135-146) mmol/L ABG Potassium (3.4-4.5) mmol/L ABG Ionized Calcium (4.5-5.3) mg/dL ABG Glucose (75-99) mg/dL ABG Lactic Acid (0.5-1.6) mmol/L Hemoglobin (13.0-17.5) gm/dL Sodium (137-145) mmol/L BUN (9-20) mg/dL Glucose (74-99) mg/dL POC Glucose (mg/dL) 150 H 151 H (70-110) mg/dL Calcium (8.4-10.2) mg/dL Ionized Calcium Suni (4.5-5.3) mg/dL Magnesium (1.6-2.3) mg/dL Total Protein (6.3-8.2) g/dL Albumin (3.5-5.0) g/dL Arterial Blood Potassium (3.4-4.5) mmol/L Arterial Blood Glucose (75-99) mg/dL Crossmatch 05/11/22 05/11/22 05/11/22 Range/Units 19:53 20:05 20:57 RBC 2.94 L (4.30-5.90) m/uL Hgb 9.7 L (13.0-17.5) gm/dL Hct 27.9 L (39.0-53.0) % Plt Count 82 L (150-450) k/uL Lymphocytes # (1.0-4.8) k/uL PT (9.0-12.0) sec INR (<1.2) ABG pH (7.35-7.45) ABG pCO2 (35-45) mmHg ABG pO2 (83-108) mmHg ABG HCO3 (21-25) mmol/L ABG Total CO2 (19-24) mmol/L ABG O2 Saturation (94-97) % ABG Hematocrit (34.0-46.0) % ABG Sodium (135-146) mmol/L ABG Potassium (3.4-4.5) mmol/L ABG Ionized Calcium (4.5-5.3) mg/dL ABG Glucose (75-99) mg/dL ABG Lactic Acid (0.5-1.6) mmol/L Hemoglobin (13.0-17.5) gm/dL Sodium (137-145) mmol/L BUN (9-20) mg/dL Glucose (74-99) mg/dL POC Glucose (mg/dL) 146 H 135 H (70-110) mg/dL Calcium (8.4-10.2) mg/dL Ionized Calcium Suni (4.5-5.3) mg/dL Magnesium (1.6-2.3) mg/dL Total Protein (6.3-8.2) g/dL Albumin (3.5-5.0) g/dL Arterial Blood Potassium (3.4-4.5) mmol/L Arterial Blood Glucose (75-99) mg/dL Crossmatch 05/11/22 05/11/22 05/11/22 Range/Units 21:56 22:58 23:52 RBC (4.30-5.90) m/uL Hgb (13.0-17.5) gm/dL Hct (39.0-53.0) % Plt Count (150-450) k/uL Lymphocytes # (1.0-4.8) k/uL PT (9.0-12.0) sec INR (<1.2) ABG pH (7.35-7.45) ABG pCO2 (35-45) mmHg ABG pO2 (83-108) mmHg ABG HCO3 (21-25) mmol/L ABG Total CO2 (19-24) mmol/L ABG O2 Saturation (94-97) % ABG Hematocrit (34.0-46.0) % ABG Sodium (135-146) mmol/L ABG Potassium (3.4-4.5) mmol/L ABG Ionized Calcium (4.5-5.3) mg/dL ABG Glucose (75-99) mg/dL ABG Lactic Acid (0.5-1.6) mmol/L Hemoglobin (13.0-17.5) gm/dL Sodium (137-145) mmol/L BUN (9-20) mg/dL Glucose (74-99) mg/dL POC Glucose (mg/dL) 132 H 128 H 124 H (70-110) mg/dL Calcium (8.4-10.2) mg/dL Ionized Calcium Suni (4.5-5.3) mg/dL Magnesium (1.6-2.3) mg/dL Total Protein (6.3-8.2) g/dL Albumin (3.5-5.0) g/dL Arterial Blood Potassium (3.4-4.5) mmol/L Arterial Blood Glucose (75-99) mg/dL Crossmatch 05/12/22 05/12/22 05/12/22 Range/Units 01:03 01:54 02:50 RBC (4.30-5.90) m/uL Hgb (13.0-17.5) gm/dL Hct (39.0-53.0) % Plt Count (150-450) k/uL Lymphocytes # (1.0-4.8) k/uL PT (9.0-12.0) sec INR (<1.2) ABG pH (7.35-7.45) ABG pCO2 (35-45) mmHg ABG pO2 (83-108) mmHg ABG HCO3 (21-25) mmol/L ABG Total CO2 (19-24) mmol/L ABG O2 Saturation (94-97) % ABG Hematocrit (34.0-46.0) % ABG Sodium (135-146) mmol/L ABG Potassium (3.4-4.5) mmol/L ABG Ionized Calcium (4.5-5.3) mg/dL ABG Glucose (75-99) mg/dL ABG Lactic Acid (0.5-1.6) mmol/L Hemoglobin (13.0-17.5) gm/dL Sodium (137-145) mmol/L BUN (9-20) mg/dL Glucose (74-99) mg/dL POC Glucose (mg/dL) 123 H 127 H 123 H (70-110) mg/dL Calcium (8.4-10.2) mg/dL Ionized Calcium Suni (4.5-5.3) mg/dL Magnesium (1.6-2.3) mg/dL Total Protein (6.3-8.2) g/dL Albumin (3.5-5.0) g/dL Arterial Blood Potassium (3.4-4.5) mmol/L Arterial Blood Glucose (75-99) mg/dL Crossmatch 05/12/22 05/12/22 05/12/22 Range/Units 03:50 04:56 04:59 RBC 2.91 L (4.30-5.90) m/uL Hgb 9.7 L (13.0-17.5) gm/dL Hct 28.0 L (39.0-53.0) % Plt Count 87 L (150-450) k/uL Lymphocytes # 0.3 L (1.0-4.8) k/uL PT (9.0-12.0) sec INR (<1.2) ABG pH (7.35-7.45) ABG pCO2 (35-45) mmHg ABG pO2 (83-108) mmHg ABG HCO3 (21-25) mmol/L ABG Total CO2 (19-24) mmol/L ABG O2 Saturation (94-97) % ABG Hematocrit (34.0-46.0) % ABG Sodium (135-146) mmol/L ABG Potassium (3.4-4.5) mmol/L ABG Ionized Calcium (4.5-5.3) mg/dL ABG Glucose (75-99) mg/dL ABG Lactic Acid (0.5-1.6) mmol/L Hemoglobin (13.0-17.5) gm/dL Sodium (137-145) mmol/L BUN (9-20) mg/dL Glucose (74-99) mg/dL POC Glucose (mg/dL) 126 H 121 H (70-110) mg/dL Calcium (8.4-10.2) mg/dL Ionized Calcium Suni (4.5-5.3) mg/dL Magnesium (1.6-2.3) mg/dL Total Protein (6.3-8.2) g/dL Albumin (3.5-5.0) g/dL Arterial Blood Potassium (3.4-4.5) mmol/L Arterial Blood Glucose (75-99) mg/dL Crossmatch 05/12/22 05/12/22 Range/Units 05:55 06:46 RBC (4.30-5.90) m/uL Hgb (13.0-17.5) gm/dL Hct (39.0-53.0) % Plt Count (150-450) k/uL Lymphocytes # (1.0-4.8) k/uL PT (9.0-12.0) sec INR (<1.2) ABG pH (7.35-7.45) ABG pCO2 (35-45) mmHg ABG pO2 (83-108) mmHg ABG HCO3 (21-25) mmol/L ABG Total CO2 (19-24) mmol/L ABG O2 Saturation (94-97) % ABG Hematocrit (34.0-46.0) % ABG Sodium (135-146) mmol/L ABG Potassium (3.4-4.5) mmol/L ABG Ionized Calcium (4.5-5.3) mg/dL ABG Glucose (75-99) mg/dL ABG Lactic Acid (0.5-1.6) mmol/L Hemoglobin (13.0-17.5) gm/dL Sodium (137-145) mmol/L BUN (9-20) mg/dL Glucose (74-99) mg/dL POC Glucose (mg/dL) 123 H 124 H (70-110) mg/dL Calcium (8.4-10.2) mg/dL Ionized Calcium Suni (4.5-5.3) mg/dL Magnesium (1.6-2.3) mg/dL Total Protein (6.3-8.2) g/dL Albumin (3.5-5.0) g/dL Arterial Blood Potassium (3.4-4.5) mmol/L Arterial Blood Glucose (75-99) mg/dL Crossmatch Assessment and Plan Assessment: Postoperative day #1, that is post three-vessel bypass grafting. Routine postoperative ventilator management, with extubation on May 11. History of hypertension. History of hyperlipidemia. Lifelong nonsmoker. History of BPH. Family history of CAD. Plan: Plan dated 05/12/2022. The patient's doing very well. He was extubated in timely fashion. He is on 2 L with excellent saturations. We recommend deep breathing, coughing, clearing of secretions. We also recommend hourly use of the incentive spirometer. No additional recommendations are made. Labs, x-rays, and medications are reviewed. Prognosis is guarded. We will continue to follow the patient and make recommendations as needed. Time with Patient: Less than 30
--- NOTE | 2022-05-12 07:05 | XR ---
EXAMINATION TYPE: XR chest 1V portable DATE OF EXAM: 05/12/2022 COMPARISON: 05/11/2022 HISTORY: Postop TECHNIQUE: Single frontal view of the chest is obtained. FINDINGS: ET and NG tube have been removed. Mediastinal drain and bilateral chest tubes remain in po sition. Cannot exclude a less than 5% right apical pneumothorax. Heart size stable with interstitial pattern, bilateral consolidation and small effusion. The gastric bubble appears somewhat distended. A rthropathy of the shoulders. Postsurgical changes noted. Chronic rib cage deformity noted on the left . IMPRESSION: 1. Interval 18 NG tube removal with distention of the gastric bubble. 2. Correlate for interstitial edema or infiltrate with small pleural effusions. 3. Cannot exclude a less than 5% right apical pneumothorax.
[2022-05-12] MEDS: METOCLOPRAMIDE 5 MG/ML 2 ML VIAL IVP PRN (07:07)
[2022-05-12 07:30] LABS: Albumin 3.1 g/dL (3.5-5.0); Calcium 7.7 mg/dL (8.4-10.2); Magnesium 2.1 mg/dL (1.6-2.3); Potassium 4.5 mmol/L (3.5-5.1); Total Bilirubin 0.6 mg/dL (0.2-1.3)
--- NOTE | 2022-05-12 07:54 | P.CRDCN ---
History of Present Illness Consult date: 05/12/22 Chief complaint: Severe triple-vessel CAD History of present illness: The patient is a 77-year-old gentleman who sees Dr. Aggarwal regularly with a past medical history significant for smoking and hypertension and dyslipidemia and recent diagnosis of coronary artery disease was admitted to the hospital yesterday and underwent an elective coronary artery bypass grafting. The patient was experiencing symptoms of chest discomfort concerning for angina in March. For that reason he underwent a heart catheterization by Dr. Aggarwal and that revealed severe chewable vessel CAD. He also underwent further investigation with an echocardiogram which revealed normal left ventricular systolic function was no significant valvular abnormalities. He was admitted to the hospital yesterday and underwent CABG 3 with PETERS into LAD and SVG to OM1 as well as SVG to OM 2. Subsequently the patient was extubated same day. He was seen this morning. He was sitting in the chair seems very comfortable and not in any distress or pain. Hemodynamically has been stable. He is not on any vasopressors or any vasoactive medication at this point. He received some nitroglycerin IV yesterday. He did have a few episodes of nonsustained V. tach yesterday. He was started on beta nicolas this morning. Beside that he is on dual antiplatelet therapy and he is also an intermediate intensity statin which I would suggest increase the dose of Lipitor to 80 mg by mouth daily at bedtime. The chest x-ray was reviewed. The blood work was reviewed as well. Past Medical History Past Medical History: Coronary Artery Disease (CAD), Cancer, Hearing Disorder / Deafness, Hyperlipidemia, Osteoarthritis (OA), Prostate Disorder, Sleep Apnea/CPAP/BIPAP Additional Past Medical History / Comment(s): SOB and fatigue with activity. No cpap used. Constipation/diarrhea. Hx skin cancer. Hx COVID 07/12. Bilateral hearing aid use. History of Any Multi-Drug Resistant Organisms: None Reported Past Surgical History: Hernia Repair, Orthopedic Surgery, Tonsillectomy Additional Past Surgical History / Comment(s): Left knee arthroscopy, skin cancer removed from face. Past Anesthesia/Blood Transfusion Reactions: No Reported Reaction Past Psychological History: No Psychological Hx Reported Smoking Status: Never smoker Past Alcohol Use History: Occasional Past Drug Use History: None Reported - Past Family History Father Family Medical History: Myocardial Infarction (AR) Medications and Allergies Home Medications Medication Instructions Recorded Confirmed Type Aspirin [Adult Low Dose Aspirin EC] 81 mg PO QA 04/08/22 05/05/22 History Metoprolol Tartrate [Lopressor] 25 mg PO [facility] 04/08/22 05/05/22 History Simvastatin [Zocor] 40 mg PO 04/08/22 05/05/22 History Tamsulosin [Flomax] 0.4 mg PO 04/08/22 05/05/22 History Allergies Allergy/AdvReac Type Severity Reaction Status Date / Time Penicillins Allergy Rash/Hives Verified 05/11/22 06:01 Physical Exam Vitals: Vital Signs Temp Pulse Resp BP Pulse Ox FiO2 05/12/22 07:00 80 14 115/57 96 05/12/22 06:30 74 12 97 05/12/22 06:00 78 20 96 05/12/22 05:30 21 97 05/12/22 05:00 75 16 98 05/12/22 04:30 79 16 97 05/12/22 04:00 75 18 97 05/12/22 03:30 79 15 94 L 05/12/22 03:00 78 20 113/54 97 05/12/22 02:30 77 15 99 05/12/22 02:00 77 14 121/62 99 05/12/22 01:30 76 13 98 05/12/22 01:00 78 15 124/64 98 05/12/22 00:30 80 14 99 05/12/22 00:00 82 20 98 3 05/11/22 23:30 81 14 98 05/11/22 23:04 83 17 98 05/11/22 23:00 80 17 120/69 98 05/11/22 22:30 82 14 98 05/11/22 22:00 84 15 98 05/11/22 21:30 82 14 97 05/11/22 21:15 83 12 98 05/11/22 21:00 87 18 126/71 97 05/11/22 20:45 90 17 98 05/11/22 20:40 93 05/11/22 20:30 86 12 99 05/11/22 20:21 86 05/11/22 20:15 86 17 97 05/11/22 20:00 90 15 123/71 97 3 05/11/22 19:45 92 15 97 05/11/22 19:30 93 18 97 06/20/22 19:15 92 13 97 05/11/22 19:00 94 19 97 05/11/22 18:45 36.5 F L 96 18 97 5 05/11/22 18:30 97 20 97 5 05/11/22 18:15 93 12 145/88 98 5 05/11/22 18:00 36.5 F L 104 H 16 98 50 05/11/22 17:45 94 14 100 05/11/22 17:30 100 15 99 05/11/22 17:15 91 15 100 05/11/22 17:00 35.9 F L 90 14 100 50 05/11/22 16:45 89 14 100 05/11/22 16:33 14 50 05/11/22 16:30 86 14 100 05/11/22 16:15 87 14 128/74 100 05/11/22 16:00 85 14 100 50 05/11/22 15:45 87 14 100 05/11/22 15:30 89 14 100 05/11/22 15:15 90 14 132/79 100 05/11/22 15:00 35.2 F L 91 16 100 50 05/11/22 14:50 14 50 05/11/22 14:45 92 14 100 05/11/22 14:37 50 05/11/22 14:30 92 14 100 05/11/22 14:15 35.2 F L 92 14 100 50 05/11/22 14:08 50 05/11/22 14:00 91 14 100 50 05/11/22 13:45 92 14 100 05/11/22 13:30 92 14 100 05/11/22 13:19 35.2 F L 91 14 100 100 05/11/22 13:18 100 05/11/22 12:43 244 H Intake and Output 05/11/22 05/12/22 05/12/22 22:59 06:59 14:59 Intake Total 3841.369 9163.771 Output Total 1683 707 Balance 45.359 1073.771 Intake: IV 1719.0 1234.5 ACETAMINOPHEN IV (For NPO 500 ) 1,000 mg In Empty Bag 1 bag @ 400 mls/hr IVPB Q6H JOSSY Rx#:[id number] Albumin Human 5% 250 ml 500 500 In Empty Bag 1 bag @ 250 mls/hr IVPB Q1HR PRN Rx#: [id number] CO/CI 80 190 Calcium Gluconate in NaCl 100 2 gm In Saline 1 100ml. bag @ 100 mls/hr IVPB ONCE PRN Rx#:[id number] Lactated Ringers 1,000 ml 400 450 @ 50 mls/hr IV .Q20H JOSSY Rx#:[id number] Nitroglycerin-D5w Pmx 50 12.0 13.5 mg In Dextrose/Water 1 250ml.bag @ 5 MCG/MIN 1.5 mls/hr IV .Q24H JOSSY Rx#: [id number] Pressure bags 27 81 ceFAZolin 2 gm In Sodium 100 Chloride 0.9% 50 ml @ 100 mls/hr IVPB Q8HR JOSSY Rx# :[id number] Intake, IV Titration 9.359 6.271 Amount Clevidipine Butyrate 25 0.9 mg In Empty Bag 1 bag @ 1 MG/HR 2 mls/hr IV .Q24H JOSSY Rx#:[id number] Insulin Regular 100 unit 8.459 6.271 In Sodium Chloride 0.9% 100 ml @ Per Protocol IV .Q0M JOSSY Rx#:[id number] Oral 540 Output: Chest Tube Drainage 293 346 Chest Tube Left Lateral 77 184 Chest Chest Tube Mediastinal 165 150 Chest Tube Right Lateral 51 12 Chest Urine 1390 361 Other: Voiding Method Indwelling Catheter Indwelling Catheter Weight 81.4 kg ABP, PAP, CO, CI - Last 8 Hours Arterial Blood Pressure 128/42 Arterial Blood Pressure 123/37 Arterial Blood Pressure 129/40 Arterial Blood Pressure 155/47 Arterial Blood Pressure 134/43 Arterial Blood Pressure 115/45 Arterial Blood Pressure 123/38 Arterial Blood Pressure 134/41 Arterial Blood Pressure 125/41 Arterial Blood Pressure 135/48 Arterial Blood Pressure 125/46 Arterial Blood Pressure 139/50 Arterial Blood Pressure 137/52 Arterial Blood Pressure 137/51 Arterial Blood Pressure 141/53 Pulmonary Artery Pressure 21/9 Pulmonary Artery Pressure 15/2 Pulmonary Artery Pressure 17/4 Pulmonary Artery Pressure 28/14 Pulmonary Artery Pressure 27/13 Pulmonary Artery Pressure 27/13 Pulmonary Artery Pressure 23/10 Pulmonary Artery Pressure 25/7 Pulmonary Artery Pressure 24/10 Pulmonary Artery Pressure 28/12 Pulmonary Artery Pressure 28/13 Pulmonary Artery Pressure 28/14 Pulmonary Artery Pressure 25/12 Pulmonary Artery Pressure 21/11 Cardiac Output 5.5 Cardiac Output 4.2 Cardiac Output 4.9 Cardiac Output 5.3 Cardiac Output 5.2 Cardiac Output 5.4 Cardiac Output 4.3 Cardiac Output 5.0 Cardiac Index 2.8 Cardiac Index 2.2 Cardiac Index 2.5 Cardiac Index 2.7 Cardiac Index 2.7 Cardiac Index 2.8 Cardiac Index 2.2 Cardiac Index 2.6 - Constitutional General appearance: no acute distress - Respiratory Respiratory: bilateral: diminished - Cardiovascular Rhythm: regular Heart sounds: normal: S1, S2 Results 05/12/22 04:59 05/12/22 04:59 Cardiac Enzymes 05/11/22 05/12/22 Range/Units 13: 04:59 AST 39 79 H (17-59) U/L Coagulation 05/11/22 Range/Units 13:22 PT 13.1 H (9.0-12.0) sec APTT 27.9 (22.0-30.0) sec CBC 05/11/22 05/11/22 05/11/22 Range/Units : 16:06 20:05 WBC 7.3 5.7 7.5 (3.8-10.6) k/uL RBC 2.85 L 2.78 L 2.94 L (4.30-5.90) m/uL Hgb 9.3 L 9.2 L 9.7 L (13.0-17.5) gm/dL Hct 26.6 L 26.4 L 27.9 L (39.0-53.0) % Plt Count 71 L 78 L 82 L (150-450) k/uL 05/12/22 Range/Units 04:59 WBC 5.7 (3.8-10.6) k/uL RBC 2.91 L (4.30-5.90) m/uL Hgb 9.7 L (13.0-17.5) gm/dL Hct 28.0 L (39.0-53.0) % Plt Count 87 L (150-450) k/uL Comprehensive Metabolic Panel 05/11/22 05/12/22 Range/Units 13:22 04:59 Sodium 136 L 136 L (137-145) mmol/L Potassium 4.3 4.5 (3.5-5.1) mmol/L Chloride 106 104 (98-107) mmol/L Carbon Dioxide 23 27 (22-30) mmol/L BUN 25 H 25 H (9-20) mg/dL Creatinine 1.06 1.13 (0.66-1.25) mg/dL Glucose 122 H 116 H (74-99) mg/dL Calcium 7.4 L 7.7 L (8.4-10.2) mg/dL AST 39 79 H (17-59) U/L ALT 14 16 (4-49) U/L Alkaline Phosphatase 44 48 (38-126) U/L Total Protein 4.5 L 5.0 L (6.3-8.2) g/dL Albumin 2.6 L 3.1 L (3.5-5.0) g/dL Current Medications Generic Name Dose Route Start Last Admin Trade Name Freq PRN Reason Stop Dose Admin Acetaminophen 650 mg 05/12/22 07:03 Acetaminophen Tab 325 Mg Tab PO Q4HR PRN Fever and/ or Pain Hydrocodone Bitart/Acetaminophen 2 each 05/12/22 00:00 05/12/22 04:39 Hydrocodone/Apap 5-325mg 1 Each Tab PO 2 each Q4HR PRN Administration Severe Pain Hydrocodone Bitart/Acetaminophen 1 each 05/12/22 00:01 05/12/22 07:19 Hydrocodone/Apap 5-325mg 1 Each Tab PO 1 each Q4HR PRN Administration Moderate Pain Albuterol/Ipratropium 3 ml 05/11/22 12:38 Ipratropium-Albuterol 3 Ml Neb INHALATION RT-Q2H PRN Shortness Of Breath Or Wheezing Albuterol/Ipratropium 3 ml 05/11/22 20:00 05/11/22 20:21 Ipratropium-Albuterol 3 Ml Neb INHALATION 3 ml RT-QID JOSSY Administration Aspirin 325 mg 05/12/22 09:00 Aspirin 325 Mg Tab PO DAILY [facility] Atorvastatin Calcium 40 mg 05/12/22 09:00 Atorvastatin 40 Mg Tab PO DAILY [facility] Benzocaine/Menthol 1 each 05/11/22 12:38 Benzocaine/Menthol Lozeng 1 Each Lozenge MUCOUS MEM Q2H PRN Sore Throat Bisacodyl 10 mg 05/12/22 09:00 Bisacodyl 10 Mg Supp RECTAL DAILY PRN Constipation Clopidogrel Bisulfate 75 mg 05/12/22 09:00 Clopidogrel 75 Mg Tab PO DAILY [facility] Heparin Sodium (Porcine) 5,000 unit 05/11/22 16:00 05/11/22 23:50 Heparin Sodium,Porcine/Pf 5,000 Unit/0.5 Ml Syringe SQ 5,000 unit Q8HR JOSSY Administration Amiodarone HCl 150 mg/ 103 mls @ 618 mls/hr 05/11/22 12:38 Dextrose/Water IV .Q10M PRN A.FIB/FLUTTER Protocol Amiodarone HCl 360 mg/ 207.2 mls @ 34.533 mls/hr 05/11/22 12:38 Dextrose/Water IV .Q6H PRN A.FIB/FLUTTER Protocol 1 MG/MIN Amiodarone HCl 450 mg/ 250 mls @ 16.667 mls/hr 05/11/22 12:38 Dextrose/Water IV .Q15H PRN A.FIB/FLUTTER Protocol 0.5 MG/MIN Albumin Human 250 ml/ IV 250 mls @ 250 mls/hr 05/11/22 12:38 05/12/22 06:56 Solution IVPB 05/13/22 12:39 250 mls/hr Q1HR PRN Administration For Volume Protocol Lactated Ringer's 1,000 mls @ 20 mls/hr 05/11/22 12:38 05/11/22 13:11 Lactated Ringers IV 50 mls/hr .Q24H JOSSY Administration Cefazolin Sodium 2 gm/ Sodium 50 mls @ 100 mls/hr 05/11/22 17:00 05/11/22 23:49 Chloride IVPB 05/12/22 08:29 100 mls/hr Q8HR JOSSY Administration Protocol Insulin Human Regular 100 unit 101 mls @ 0 mls/hr 05/11/22 13:30 05/12/22 05:03 / Sodium Chloride IV 0.5 unit/hr .Q0M JOSSY 0.505 mls/hr Titration Protocol Per Protocol Magnesium Hydroxide 2,400 mg 05/12/22 09:00 Magnesium Hydroxide 2,400 Mg/10 Ml Cup PO BID PRN Constipation Metoclopramide HCl 10 mg 05/11/22 12:38 05/12/22 07:07 Metoclopramide 5 Mg/Ml 2 Ml Vial IVP 10 mg Q4H PRN Administration Nausea And Vomiting Metoprolol Tartrate 25 mg 05/12/22 09:00 Metoprolol Tartrate 25 Mg Tab PO BID [facility] Miscellaneous Information 1 each 05/11/22 12:38 Potassium Replacement Protocol 1 Each [facility] MISCELLANE DAILY PRN Per Protocol Protocol Miscellaneous Information 1 each 05/11/22 12:38 Magnesium Replacement Protocol 1 Each [facility] MISCELLANE DAILY PRN Per Protocol Protocol Ondansetron HCl 4 mg 05/11/22 12:38 05/12/22 01:27 Ondansetron 4 Mg/2 Ml Vial IVP 4 mg Q6HR PRN Administration Nausea And Vomiting Pantoprazole Sodium 40 mg 05/12/22 09:00 Pantoprazole 40 Mg/10 Ml Vial IVP DAILY JOSSY Senna/Docusate Sodium 2 each 05/12/22 21:00 Sennosides-Docusate Sodium 1 Each Tab PO HS JOSSY Sodium Chloride 10 ml 05/11/22 21:00 05/11/22 20:47 Sodium Chloride 0.9% Flush 10 Ml Syringe IV 10 ml BID JOSSY Administration Tamsulosin HCl 0.4 mg 05/12/22 21:00 Tamsulosin 0.4 Mg Cap.Er.24h PO HS JOSSY Intake and Output 05/11/22 05/12/22 05/12/22 22:59 06:59 14:59 Intake Total 4694.324 4717.771 Output Total 1683 707 Balance 45.359 1073.771 Intake: IV 1719.0 1234.5 ACETAMINOPHEN IV (For NPO 500 ) 1,000 mg In Empty Bag 1 bag @ 400 mls/hr IVPB Q6H JOSSY Rx#:[id number] Albumin Human 5% 250 ml 500 500 In Empty Bag 1 bag @ 250 mls/hr IVPB Q1HR PRN Rx#: [id number] CO/CI 80 190 Calcium Gluconate in NaCl 100 2 gm In Saline 1 100ml. bag @ 100 mls/hr IVPB ONCE PRN Rx#:[id number] Lactated Ringers 1,000 ml 400 450 @ 50 mls/hr IV .Q20H JOSSY Rx#:[id number] Nitroglycerin-D5w Pmx 50 12.0 13.5 mg In Dextrose/Water 1 250ml.bag @ 5 MCG/MIN 1.5 mls/hr IV .Q24H JOSSY Rx#: [id number] Pressure bags 27 81 ceFAZolin 2 gm In Sodium 100 Chloride 0.9% 50 ml @ 100 mls/hr IVPB Q8HR JOSSY Rx# :[id number] Intake, IV Titration 9.359 6.271 Amount Clevidipine Butyrate 25 0.9 mg In Empty Bag 1 bag @ 1 MG/HR 2 mls/hr IV .Q24H JOSSY Rx#:[id number] Insulin Regular 100 unit 8.459 6.271 In Sodium Chloride 0.9% 100 ml @ Per Protocol IV .Q0M JOSSY Rx#:[id number] Oral 540 Output: Chest Tube Drainage 293 346 Chest Tube Left Lateral 77 184 Chest Chest Tube Mediastinal 165 150 Chest Tube Right Lateral 51 12 Chest Urine 1390 361 Other: Voiding Method Indwelling Catheter Indwelling Catheter Weight 81.4 kg 05/12/22 04:59 05/12/22 04:59 Assessment and Plan Assessment: Assessment #1 severe triple-vessel CAD and status post CABG as described above #2 history of smoking #3 hypertension #4 dyslipidemia #5 preserved left ventricular systolic function Plan #1 continue the current medical regimen including dual antiplatelet therapy #2 agree to start the patient on beta nicolas #3 suggest increase the dose of Lipitor to 80 mg by mouth daily at bedtime #4 follow-up with the patient
[2022-05-12] MEDS ORDERED: KETOROLAC 15 MG/ML 1 ML VIAL IVP STA (07:58)
[2022-05-12 08:14] LABS: Ionized Calcium 4.8 mg/dL (4.5-5.3)
[2022-05-12 08:32] LABS: Glucose,Whole Blood 179 mg/dL (70-110)
[2022-05-12] MEDS: ATORVASTATIN 40 MG TAB PO SCH (08:40)
[2022-05-12] MEDS: ASPIRIN 325 MG TAB PO SCH (08:40)
[2022-05-12] MEDS: CLOPIDOGREL 75 MG TAB PO SCH (08:40)
[2022-05-12] MEDS: HEPARIN SODIUM,PORCINE/PF 5,000 UNIT/0.5 ML SYRINGE SQ SCH ×2 (08:41→15:56)
[2022-05-12] MEDS ORDERED: PANTOPRAZOLE 40 MG/10 ML VIAL IVP SCH (09:00)
[2022-05-12] MEDS ORDERED: METOPROLOL TARTRATE 25 MG TAB PO SCH (09:00)
[2022-05-12] MEDS ORDERED: METOPROLOL TARTRATE 12.5 MG TAB PO SCH (09:00)
[2022-05-12] MEDS ORDERED: bisacodyL 10 MG SUPP RECTAL PRN (09:00)
[2022-05-12] MEDS: IPRATROPIUM-ALBUTEROL 3 ML NEB INHALATION SCH ×4 (09:04→20:25)
[2022-05-12] MEDS: METOPROLOL TARTRATE 12.5 MG TAB PO SCH ×2 (09:14→20:31)
[2022-05-12 09:23] LABS: Glucose,Whole Blood 160 mg/dL (70-110)
--- NOTE | 2022-05-12 09:38 | P.PN ---
Subjective Progress Note Date: 05/12/22 Principal diagnosis: Triple-vessel coronary artery disease with unstable angina. Previous medical history of hyperlipidemia, BPH, obstructive sleep apnea without home CPAP use, covid in June 2021, skin cancer status post removal, lifelong non-smoker, and family history of premature coronary artery disease POD #1 coronary bypass grafting 3 with a left internal mammary artery to the left anterior descending artery, reverse saphenous vein graft off the aorta to the first obtuse marginal artery and the second obtuse marginal artery with right lower extremity greater saphenous vein endoscopic harvesting, clip ligation of the left atrial appendage with a 35 mm AtriClip and intraoperative transesophageal echocardiogram Postoperative acute blood loss anemia and thrombocytopenia, expected given hemodilution and cardiopulmonary bypass pump The patient was seen and examined this morning sitting up in a recliner in the intensive care unit in no acute distress. He was successfully extubated yesterday at 18:21. Remains in sinus rhythm, hemodynamically stable on no inot ropes or pressors. He does admit to postsurgical chest pain, denies shortness of breath. Oxygenating well on 2 L nasal cannula. Right internal jugular [place]/Cordis, right radial arterial line, mediastinal/left/right pleural chest tubes all remaining present. No other new concerns. Objective - Vital Signs Vital signs: Vital Signs Temp 36.5 F L 05/11/22 18:45 Pulse 76 05/12/22 08:30 Resp 10 L 05/12/22 08:30 BP 105/50 05/12/22 08:00 Pulse Ox 95 05/12/22 08:30 FiO2 3 05/12/22 00:00 Intake & Output 05/11/22 05/12/22 05/12/22 18:59 06:59 18:59 Intake Total 1877.9 2502.230 1.742 Output Total 2865 1135 Balance -987.1 1367.230 1.742 Weight 81.4 kg Intake: IV 1161.0 1947.5 ACETAMINOPHEN IV (For NPO 100 400 ) 1,000 mg In Empty Bag 1 bag @ 400 mls/hr IVPB Q6H [facility] Rx#:[id number] Albumin Human 5% 250 ml 500 500 In Empty Bag 1 bag @ 250 mls/hr IVPB Q1HR PRN Rx#: [id number] CO/CI 270 Calcium Gluconate in NaCl 100 2 gm In Saline 1 100ml. bag @ 100 mls/hr IVPB ONCE PRN Rx#:[id number] Lactated Ringers 1,000 ml 300 650 @ 50 mls/hr IV .Q20H [facility] Rx#:[id number] Nitroglycerin-D5w Pmx 50 9.0 19.5 mg In Dextrose/Water 1 250ml.bag @ 5 MCG/MIN 1.5 mls/hr IV .Q24H [facility]OS[facility] Rx#: [id number] Pressure bags 108 ceFAZolin 2 gm In Sodium 100 Chloride 0.9% 50 ml @ 100 mls/hr IVPB Q8HR [facility]OS[facility] Rx# :[id number] Intake, IV Titration 0.9 14.730 1.742 Amount Clevidipine Butyrate 25 0.9 mg In Empty Bag 1 bag @ 1 MG/HR 2 mls/hr IV .Q24H [facility] Rx#:[id number] Insulin Regular 100 unit 14.730 1.742 In Sodium Chloride 0.9% 100 ml @ Per Protocol IV .Q0M [facility] Rx#:[id number] Oral 540 Blood Product 716 Ffp 24 Pher Acda Cnt2 217 Unit [id number] Ffp 24 Pher Acda Cnt2 216 Unit [id number] Platelet Pheresis Pas 283 Psoralen Unit [id number] Output: Chest Tube Drainage 335 444 Chest Tube Left Lateral 95 201 Chest Chest Tube Mediastinal 160 230 Chest Tube Right Lateral 80 13 Chest Urine 1930 691 Estimated Blood Loss 600 Other: Voiding Method Indwelling Catheter Indwelling Catheter ABP, PAP, CO, CI - Last Documented Arterial Blood Pressure 104/40 Pulmonary Artery Pressure 18/7 Cardiac Output 4.8 Cardiac Index 2.5 - Exam CONSTITUTIONAL: Appears comfortable, cooperative, no acute distress RESPIRATORY: Lungs sounds diminished bilaterally. Respirations even, nonlabored. Currently on 2 L nasal cannula with oxygen saturation 96%. Able to achieve 750 mL on incentive spirometry. Strong cough. CARDIOVASCULAR: S1, S2 present. Regular rate and rhythm, sinus rhythm on telemetry. Sternum stable. Palpable peripheral pulses bilaterally. No edema present. No calf pain or tenderness noted. Heart hugger in place with patient demonstrating appropriate use. Antiembolism stockings, SCDs present. GASTROINTESTINAL: Abdomen soft, nontender, nondistended. Hypoactive bowel sounds present 4 quadrants. Tolerating clear liquids. Positive belching and flatus GENITOURINARY: Blas present draining clear, yellow urine. Output overnight 20-70 mL per hour INTEGUMENTARY: Skin is warm and dry with evidence of good perfusion. Anterior chest incision well approximated and covered with dry intact dressing. Right lower extremity EVH site well approximated without redness or drainage. NEUROLOGIC: Cranial nerves II through XII intact MUSKULOSKELETAL: Able to move all extremities, strength equal bilaterally, gait normal PSYCHIATRIC: Alert and oriented to person place and time, appropriate affect, intact judgment and insight INVASIVE LINES AND TUBES: Mediastinal/left/right pleural chest tubes present and connected to wall suction, no air leaks present. Mediastinal tube with 140 mL serosanguineous drainage overnight, 400 mL since surgery. Left pleural chest tube with 154 mL serosanguineous drainage overnight, 300 mL since surgery. Right pleural chest tube with 11 mL serosanguineous drainage overnight, 50 mL since surgery. A/V epicardial pacemaker wires present, connected to generator, backup rate 50 bpm. Right internal jugular [place]ordis, right radial arterial line present. Last CO/CI 4.8/2.5, PA 18/7, CVP 6. - Labs CBC & Chem 7: 05/12/22 04:59 05/12/22 04:59 Labs: Abnormal Lab Results - Last 24 Hours (Table) 05/05/22 05/11/22 05/11/22 Range/Units 08:04 08:54 10:05 RBC (4.30-5.90) m/uL Hgb (13.0-17.5) gm/dL Hct (39.0-53.0) % Plt Count (150-450) k/uL Lymphocytes # (1.0-4.8) k/uL PT (9.0-12.0) sec INR (<1.2) ABG pH (7.35-7.45) ABG pCO2 (35-45) mmHg ABG pO2 279 H 285 H (83-108) mmHg ABG HCO3 (21-25) mmol/L ABG Total CO2 27 H 26 H (19-24) mmol/L ABG O2 Saturation 100.0 H 99.9 H (94-97) % ABG Hematocrit (34.0-46.0) % ABG Sodium (135-146) mmol/L ABG Potassium (3.4-4.5) mmol/L ABG Ionized Calcium (4.5-5.3) mg/dL ABG Glucose 112 H 140 H (75-99) mg/dL ABG Lactic Acid (0.5-1.6) mmol/L Hemoglobin 11.4 L 11.0 L (13.0-17.5) gm/dL Sodium (137-145) mmol/L BUN (9-20) mg/dL Glucose (74-99) mg/dL POC Glucose (mg/dL) (70-110) mg/dL Calcium (8.4-10.2) mg/dL Ionized Calcium Suni (4.5-5.3) mg/dL Magnesium (1.6-2.3) mg/dL AST (17-59) U/L Total Protein (6.3-8.2) g/dL Albumin (3.5-5.0) g/dL Arterial Blood Potassium (3.4-4.5) mmol/L Arterial Blood Glucose 112 H 140 H (75-99) mg/dL Crossmatch See Detail 05/11/22 05/11/22 05/11/22 Range/Units 10:44 11:28 13:22 RBC 2.85 L (4.30-5.90) m/uL Hgb 9.3 L (13.0-17.5) gm/dL Hct 26.6 L (39.0-53.0) % Plt Count 71 L (150-450) k/uL Lymphocytes # 0.8 L (1.0-4.8) k/uL PT (9.0-12.0) sec INR (<1.2) ABG pH (7.35-7.45) ABG pCO2 (35-45) mmHg ABG pO2 282 H 417 H (83-108) mmHg ABG HCO3 (21-25) mmol/L ABG Total CO2 26 H 26 H (19-24) mmol/L ABG O2 Saturation 100.0 H 100.0 H (94-97) % ABG Hematocrit 26 L 25 L (34.0-46.0) % ABG Sodium 134 L (135-146) mmol/L ABG Potassium 4.6 H 4.7 H (3.4-4.5) mmol/L ABG Ionized Calcium 4.1 L 4.2 L (4.5-5.3) mg/dL ABG Glucose 117 H 127 H (75-99) mg/dL ABG Lactic Acid 1.9 H (0.5-1.6) mmol/L Hemoglobin 8.5 L 8.2 L (13.0-17.5) gm/dL Sodium (137-145) mmol/L BUN (9-20) mg/dL Glucose (74-99) mg/dL POC Glucose (mg/dL) (70-110) mg/dL Calcium (8.4-10.2) mg/dL Ionized Calcium Suni (4.5-5.3) mg/dL Magnesium (1.6-2.3) mg/dL AST (17-59) U/L Total Protein (6.3-8.2) g/dL Albumin (3.5-5.0) g/dL Arterial Blood Potassium 4.6 H 4.7 H (3.4-4.5) mmol/L Arterial Blood Glucose 117 H 127 H (75-99) mg/dL Crossmatch 05/11/22 05/11/22 05/11/22 Range/Units 13:22 13:22 13:22 RBC (4.30-5.90) m/uL Hgb (13.0-17.5) gm/dL Hct (39.0-53.0) % Plt Count (150-450) k/uL Lymphocytes # (1.0-4.8) k/uL PT 13.1 H (9.0-12.0) sec INR 1.2 H (<1.2) ABG pH (7.35-7.45) ABG pCO2 (35-45) mmHg ABG pO2 (83-108) mmHg ABG HCO3 (21-25) mmol/L ABG Total CO2 (19-24) mmol/L ABG O2 Saturation (94-97) % ABG Hematocrit (34.0-46.0) % ABG Sodium (135-146) mmol/L ABG Potassium (3.4-4.5) mmol/L ABG Ionized Calcium (4.5-5.3) mg/dL ABG Glucose (75-99) mg/dL ABG Lactic Acid (0.5-1.6) mmol/L Hemoglobin (13.0-17.5) gm/dL Sodium 136 L (137-145) mmol/L BUN 25 H (9-20) mg/dL Glucose 122 H (74-99) mg/dL POC Glucose (mg/dL) 137 H (70-110) mg/dL Calcium 7.4 L (8.4-10.2) mg/dL Ionized Calcium Suni 4.2 L (4.5-5.3) mg/dL Magnesium 2.5 H (1.6-2.3) mg/dL AST (17-59) U/L Total Protein 4.5 L (6.3-8.2) g/dL Albumin 2.6 L (3.5-5.0) g/dL Arterial Blood Potassium (3.4-4.5) mmol/L Arterial Blood Glucose (75-99) mg/dL Crossmatch 05/11/22 05/11/22 05/11/22 Range/Units 14:05 14:10 15:10 RBC (4.30-5.90) m/uL Hgb (13.0-17.5) gm/dL Hct (39.0-53.0) % Plt Count (150-450) k/uL Lymphocytes # (1.0-4.8) k/uL PT (9.0-12.0) sec INR (<1.2) ABG pH (7.35-7.45) ABG pCO2 (35-45) mmHg ABG pO2 >400 H (83-108) mmHg ABG HCO3 26 H (21-25) mmol/L ABG Total CO2 27 H (19-24) mmol/L ABG O2 Saturation 100.0 H (94-97) % ABG Hematocrit (34.0-46.0) % ABG Sodium (135-146) mmol/L ABG Potassium (3.4-4.5) mmol/L ABG Ionized Calcium (4.5-5.3) mg/dL ABG Glucose (75-99) mg/dL ABG Lactic Acid (0.5-1.6) mmol/L Hemoglobin (13.0-17.5) gm/dL Sodium (137-145) mmol/L BUN (9-20) mg/dL Glucose (74-99) mg/dL POC Glucose (mg/dL) 130 H 127 H (70-110) mg/dL Calcium (8.4-10.2) mg/dL Ionized Calcium Suni (4.5-5.3) mg/dL Magnesium (1.6-2.3) mg/dL AST (17-59) U/L Total Protein (6.3-8.2) g/dL Albumin (3.5-5.0) g/dL Arterial Blood Potassium (3.4-4.5) mmol/L Arterial Blood Glucose (75-99) mg/dL Crossmatch 05/11/22 05/11/22 05/11/22 Range/Units 16:04 16:06 17:07 RBC 2.78 L (4.30-5.90) m/uL Hgb 9.2 L (13.0-17.5) gm/dL Hct 26.4 L (39.0-53.0) % Plt Count 78 L (150-450) k/uL Lymphocytes # 0.6 L (1.0-4.8) k/uL PT (9.0-12.0) sec INR (<1.2) ABG pH (7.35-7.45) ABG pCO2 (35-45) mmHg ABG pO2 (83-108) mmHg ABG HCO3 (21-25) mmol/L ABG Total CO2 (19-24) mmol/L ABG O2 Saturation (94-97) % ABG Hematocrit (34.0-46.0) % ABG Sodium (135-146) mmol/L ABG Potassium (3.4-4.5) mmol/L ABG Ionized Calcium (4.5-5.3) mg/dL ABG Glucose (75-99) mg/dL ABG Lactic Acid (0.5-1.6) mmol/L Hemoglobin (13.0-17.5) gm/dL Sodium (137-145) mmol/L BUN (9-20) mg/dL Glucose (74-99) mg/dL POC Glucose (mg/dL) 125 H 136 H (70-110) mg/dL Calcium (8.4-10.2) mg/dL Ionized Calcium Suni (4.5-5.3) mg/dL Magnesium (1.6-2.3) mg/dL AST (17-59) U/L Total Protein (6.3-8.2) g/dL Albumin (3.5-5.0) g/dL Arterial Blood Potassium (3.4-4.5) mmol/L Arterial Blood Glucose (75-99) mg/dL Crossmatch 05/11/22 05/11/22 05/11/22 Range/Units 18:00 18:07 19:05 RBC (4.30-5.90) m/uL Hgb (13.0-17.5) gm/dL Hct (39.0-53.0) % Plt Count (150-450) k/uL Lymphocytes # (1.0-4.8) k/uL PT (9.0-12.0) sec INR (<1.2) ABG pH 7.31 L (7.35-7.45) ABG pCO2 53 H (35-45) mmHg ABG pO2 119 H (83-108) mmHg ABG HCO3 27 H (21-25) mmol/L ABG Total CO2 29 H (19-24) mmol/L ABG O2 Saturation (94-97) % ABG Hematocrit (34.0-46.0) % ABG Sodium (135-146) mmol/L ABG Potassium (3.4-4.5) mmol/L ABG Ionized Calcium (4.5-5.3) mg/dL ABG Glucose (75-99) mg/dL ABG Lactic Acid (0.5-1.6) mmol/L Hemoglobin (13.0-17.5) gm/dL Sodium (137-145) mmol/L BUN (9-20) mg/dL Glucose (74-99) mg/dL POC Glucose (mg/dL) 150 H 151 H (70-110) mg/dL Calcium (8.4-10.2) mg/dL Ionized Calcium Suni (4.5-5.3) mg/dL Magnesium (1.6-2.3) mg/dL AST (17-59) U/L Total Protein (6.3-8.2) g/dL Albumin (3.5-5.0) g/dL Arterial Blood Potassium (3.4-4.5) mmol/L Arterial Blood Glucose (75-99) mg/dL Crossmatch 05/11/22 05/11/22 05/11/22 Range/Units 19:53 20:05 20:57 RBC 2.94 L (4.30-5.90) m/uL Hgb 9.7 L (13.0-17.5) gm/dL Hct 27.9 L (39.0-53.0) % Plt Count 82 L (150-450) k/uL Lymphocytes # (1.0-4.8) k/uL PT (9.0-12.0) sec INR (<1.2) ABG pH (7.35-7.45) ABG pCO2 (35-45) mmHg ABG pO2 (83-108) mmHg ABG HCO3 (21-25) mmol/L ABG Total CO2 (19-24) mmol/L ABG O2 Saturation (94-97) % ABG Hematocrit (34.0-46.0) % ABG Sodium (135-146) mmol/L ABG Potassium (3.4-4.5) mmol/L ABG Ionized Calcium (4.5-5.3) mg/dL ABG Glucose (75-99) mg/dL ABG Lactic Acid (0.5-1.6) mmol/L Hemoglobin (13.0-17.5) gm/dL Sodium (137-145) mmol/L BUN (9-20) mg/dL Glucose (74-99) mg/dL POC Glucose (mg/dL) 146 H 135 H (70-110) mg/dL Calcium (8.4-10.2) mg/dL Ionized Calcium Suni (4.5-5.3) mg/dL Magnesium (1.6-2.3) mg/dL AST (17-59) U/L Total Protein (6.3-8.2) g/dL Albumin (3.5-5.0) g/dL Arterial Blood Potassium (3.4-4.5) mmol/L Arterial Blood Glucose (75-99) mg/dL Crossmatch 05/11/22 05/11/22 05/11/22 Range/Units 21:56 22:58 23:52 RBC (4.30-5.90) m/uL Hgb (13.0-17.5) gm/dL Hct (39.0-53.0) % Plt Count (150-450) k/uL Lymphocytes # (1.0-4.8) k/uL PT (9.0-12.0) sec INR (<1.2) ABG pH (7.35-7.45) ABG pCO2 (35-45) mmHg ABG pO2 (83-108) mmHg ABG HCO3 (21-25) mmol/L ABG Total CO2 (19-24) mmol/L ABG O2 Saturation (94-97) % ABG Hematocrit (34.0-46.0) % ABG Sodium (135-146) mmol/L ABG Potassium (3.4-4.5) mmol/L ABG Ionized Calcium (4.5-5.3) mg/dL ABG Glucose (75-99) mg/dL ABG Lactic Acid (0.5-1.6) mmol/L Hemoglobin (13.0-17.5) gm/dL Sodium (137-145) mmol/L BUN (9-20) mg/dL Glucose (74-99) mg/dL POC Glucose (mg/dL) 132 H 128 H 124 H (70-110) mg/dL Calcium (8.4-10.2) mg/dL Ionized Calcium Suni (4.5-5.3) mg/dL Magnesium (1.6-2.3) mg/dL AST (17-59) U/L Total Protein (6.3-8.2) g/dL Albumin (3.5-5.0) g/dL Arterial Blood Potassium (3.4-4.5) mmol/L Arterial Blood Glucose (75-99) mg/dL Crossmatch 05/12/22 05/12/22 05/12/22 Range/Units 01:03 01:54 02:50 RBC (4.30-5.90) m/uL Hgb (13.0-17.5) gm/dL Hct (39.0-53.0) % Plt Count (150-450) k/uL Lymphocytes # (1.0-4.8) k/uL PT (9.0-12.0) sec INR (<1.2) ABG pH (7.35-7.45) ABG pCO2 (35-45) mmHg ABG pO2 (83-108) mmHg ABG HCO3 (21-25) mmol/L ABG Total CO2 (19-24) mmol/L ABG O2 Saturation (94-97) % ABG Hematocrit (34.0-46.0) % ABG Sodium (135-146) mmol/L ABG Potassium (3.4-4.5) mmol/L ABG Ionized Calcium (4.5-5.3) mg/dL ABG Glucose (75-99) mg/dL ABG Lactic Acid (0.5-1.6) mmol/L Hemoglobin (13.0-17.5) gm/dL Sodium (137-145) mmol/L BUN (9-20) mg/dL Glucose (74-99) mg/dL POC Glucose (mg/dL) 123 H 127 H 123 H (70-110) mg/dL Calcium (8.4-10.2) mg/dL Ionized Calcium Suni (4.5-5.3) mg/dL Magnesium (1.6-2.3) mg/dL AST (17-59) U/L Total Protein (6.3-8.2) g/dL Albumin (3.5-5.0) g/dL Arterial Blood Potassium (3.4-4.5) mmol/L Arterial Blood Glucose (75-99) mg/dL Crossmatch 05/12/22 05/12/22 05/12/22 Range/Units 03:50 04:56 04:59 RBC 2.91 L (4.30-5.90) m/uL Hgb 9.7 L (13.0-17.5) gm/dL Hct 28.0 L (39.0-53.0) % Plt Count 87 L (150-450) k/uL Lymphocytes # 0.3 L (1.0-4.8) k/uL PT (9.0-12.0) sec INR (<1.2) ABG pH (7.35-7.45) ABG pCO2 (35-45) mmHg ABG pO2 (83-108) mmHg ABG HCO3 (21-25) mmol/L ABG Total CO2 (19-24) mmol/L ABG O2 Saturation (94-97) % ABG Hematocrit (34.0-46.0) % ABG Sodium (135-146) mmol/L ABG Potassium (3.4-4.5) mmol/L ABG Ionized Calcium (4.5-5.3) mg/dL ABG Glucose (75-99) mg/dL ABG Lactic Acid (0.5-1.6) mmol/L Hemoglobin (13.0-17.5) gm/dL Sodium (137-145) mmol/L BUN (9-20) mg/dL Glucose (74-99) mg/dL POC Glucose (mg/dL) 126 H 121 H (70-110) mg/dL Calcium (8.4-10.2) mg/dL Ionized Calcium Suni (4.5-5.3) mg/dL Magnesium (1.6-2.3) mg/dL AST (17-59) U/L Total Protein (6.3-8.2) g/dL Albumin (3.5-5.0) g/dL Arterial Blood Potassium (3.4-4.5) mmol/L Arterial Blood Glucose (75-99) mg/dL Crossmatch 05/12/22 05/12/22 05/12/22 Range/Units 04:59 05:55 06:46 RBC (4.30-5.90) m/uL Hgb (13.0-17.5) gm/dL Hct (39.0-53.0) % Plt Count (150-450) k/uL Lymphocytes # (1.0-4.8) k/uL PT (9.0-12.0) sec INR (<1.2) ABG pH (7.35-7.45) ABG pCO2 (35-45) mmHg ABG pO2 (83-108) mmHg ABG HCO3 (21-25) mmol/L ABG Total CO2 (19-24) mmol/L ABG O2 Saturation (94-97) % ABG Hematocrit (34.0-46.0) % ABG Sodium (135-146) mmol/L ABG Potassium (3.4-4.5) mmol/L ABG Ionized Calcium (4.5-5.3) mg/dL ABG Glucose (75-99) mg/dL ABG Lactic Acid (0.5-1.6) mmol/L Hemoglobin (13.0-17.5) gm/dL Sodium 136 L (137-145) mmol/L BUN 25 H (9-20) mg/dL Glucose 116 H (74-99) mg/dL POC Glucose (mg/dL) 123 H 124 H (70-110) mg/dL Calcium 7.7 L (8.4-10.2) mg/dL Ionized Calcium Suni (4.5-5.3) mg/dL Magnesium (1.6-2.3) mg/dL AST 79 H (17-59) U/L Total Protein 5.0 L (6.3-8.2) g/dL Albumin 3.1 L (3.5-5.0) g/dL Arterial Blood Potassium (3.4-4.5) mmol/L Arterial Blood Glucose (75-99) mg/dL Crossmatch 05/12/22 Range/Units 08:30 RBC (4.30-5.90) m/uL Hgb (13.0-17.5) gm/dL Hct (39.0-53.0) % Plt Count (150-450) k/uL Lymphocytes # (1.0-4.8) k/uL PT (9.0-12.0) sec INR (<1.2) ABG pH (7.35-7.45) ABG pCO2 (35-45) mmHg ABG pO2 (83-108) mmHg ABG HCO3 (21-25) mmol/L ABG Total CO2 (19-24) mmol/L ABG O2 Saturation (94-97) % ABG Hematocrit (34.0-46.0) % ABG Sodium (135-146) mmol/L ABG Potassium (3.4-4.5) mmol/L ABG Ionized Calcium (4.5-5.3) mg/dL ABG Glucose (75-99) mg/dL ABG Lactic Acid (0.5-1.6) mmol/L Hemoglobin (13.0-17.5) gm/dL Sodium (137-145) mmol/L BUN (9-20) mg/dL Glucose (74-99) mg/dL POC Glucose (mg/dL) 179 H (70-110) mg/dL Calcium (8.4-10.2) mg/dL Ionized Calcium Suni (4.5-5.3) mg/dL Magnesium (1.6-2.3) mg/dL AST (17-59) U/L Total Protein (6.3-8.2) g/dL Albumin (3.5-5.0) g/dL Arterial Blood Potassium (3.4-4.5) mmol/L Arterial Blood Glucose (75-99) mg/dL Crossmatch Assessment and Plan Assessment: 1. Triple-vessel coronary artery disease with unstable angina, status post three-vessel CABG 2. Hyperlipidemia, treated, cholesterol 171, LDL 94.5 3. BPH, on Flomax outpatient 4. Obstructive sleep apnea without home CPAP use 5. Covid in June 2021 6. Skin cancer status post removal 7. Lifelong non-smoker 8. Family history of premature coronary artery disease 9. Postoperative acute blood loss anemia and thrombocytopenia, expected Plan: 1. Continue aspirin, statin, Plavix, beta nicolas therapy. Will increase beta nicolas therapy as tolerated. Discontinue IV nitroglycerin 2. Wean O2 as tolerated. Encourage incentive spirometry is 10 times every hour while awake. Bronchodilators per pulmonology 3. Increase activity as tolerated. PT/OT/cardiac rehab consulted 4. Will monitor daily labs and x-rays. Electrolyte replacement per protocol 5. GI/DVT prophylaxis 6. Pain control with current medication regimen 7. Insulin management per primary care service. Patient is not diabetic, preoperative hemoglobin A1c 5.5% 8. Discontinue [place]. Connect Cordis continuous CVP monitoring 9. Will discontinue right pleural chest tube. Continue mediastinal and left pleural chest tube for another 24 hours 10. Continue Blas for another 24 hours for strict accurate intake and output. Daily weights 11. More recommendations to follow as appropriate
[2022-05-12 10:08] LABS: Glucose,Whole Blood 139 mg/dL (70-110)
[2022-05-12 11:08] LABS: Glucose,Whole Blood 116 mg/dL (70-110)
[2022-05-12 11:44] VITALS: BMI 26.4
[2022-05-12 11:53] LABS: Glucose,Whole Blood 123 mg/dL (70-110)
[2022-05-12 13:16] LABS: Glucose,Whole Blood 155 mg/dL (70-110)
--- NOTE | 2022-05-12 15:30 | PN ---
PROGRESS NOTE This is a 77-year-old gentleman admitted after CABG is being closely monitored. Patient is on small dose of insulin drip. No chest pain. No palpitation. PHYSICAL EXAMINATION: Pulse is 68. Blood pressure is 108/60. Respiration 25. HEENT: Conjunctivae normal. Neck: No JVD. Cardiovascular: S1, S2 muffled. Respiratory: Breath sounds diminished in the bases. No rhonchi. No crackles. Abdomen: Soft, nontender. Nervous System: No focal deficits. LABS: Reviewed. ASSESSMENT: 1. Coronary artery disease, status post CABG. 2. Elevated blood sugars. 3. Hyperlipidemia. 4. Degenerative joint disease. 5. History of prostate disorder. 6. History of sleep apnea. RECOMMENDATIONS AND DISCUSSION: Recommend to continue current management and symptomatic treatment. Incentive spirometry. The patient does not have history of diabetes mellitus. I would recommend stop the insulin drip and control blood sugars with Accu-Cheks and scale also. We will monitor. If the blood sugar is elevated, we will add long-acting insulin or extra short-acting insulin with diet. Further recommendations to follow. MMODL / IJN: [id number] /
[2022-05-12] MEDS: LACTATED RINGERS 1,000 ML IV SCH (15:48)
[2022-05-12 17:12] LABS: Glucose,Whole Blood 160 mg/dL (70-110)
[2022-05-12] MEDS: INSULIN ASPART (NovoLOG) 100 UNIT/ML VIAL SQ SCH ×2 (17:36→20:29)
[2022-05-12] MEDS: DEXTROSE 5% IN WATER 100 ML with AMIODARONE 150 MG IV PRN ×2 (17:54→21:06)
[2022-05-12 20:20] LABS: Glucose,Whole Blood 186 mg/dL (70-110)
[2022-05-12] MEDS: TAMSULOSIN 0.4 MG CAP.ER.24H PO SCH (20:30)
[2022-05-12] MEDS: SENNOSIDES-DOCUSATE SODIUM 1 EACH TAB PO SCH (20:31)
[2022-05-12] MEDS ORDERED: FUROSEMIDE 10 MG/ML 4 ML VIAL IV STA (21:41)
[2022-05-12 21:54] LABS: Glucose,Whole Blood 183 mg/dL (70-110)
[2022-05-12] MEDS: AMIODARONE 450 MG in DEXTROSE 5% IN WATER 250 ML IV PRN ×2 (23:37)
[2022-05-13] MEDS: HEPARIN SODIUM,PORCINE/PF 5,000 UNIT/0.5 ML SYRINGE SQ SCH ×4 (00:17→23:17)
[2022-05-13] MEDS: HYDROcodone/APAP 5-325MG 1 EACH TAB PO PRN ×4 (00:17→12:19)
[2022-05-13 05:36] LABS: Basophils % (A) 0 %; Eosinophils % (A) 0 %; HCT 27.1 % (39.0-53.0); HGB 9.2 gm/dL (13.0-17.5); Lymphocytes # (A) 0.6 k/uL (1.0-4.8); Lymphocytes % (A) 8 %; MCH 33.2 pg (25.0-35.0); MCV 97.7 fL (80.0-100.0); Mean Platelet Volume 10.8; Monocytes # (A) 0.5 k/uL (0-1.0); Monocytes % (A) 6 %; Neutrophils # (A) 6.4 k/uL (1.3-7.7); Neutrophils % (A) 84 %; RBC 2.78 m/uL (4.30-5.90); RDW 12.9 % (11.5-15.5); WBC 7.6 k/uL (3.8-10.6)
[2022-05-13 05:38] LABS: Ionized Calcium 4.6 mg/dL (4.5-5.3)
[2022-05-13 05:42] LABS: Platelet Count 79 k/uL (150-450)
[2022-05-13 05:46] LABS: Albumin 3.3 g/dL (3.5-5.0); Calcium 7.9 mg/dL (8.4-10.2); Potassium 4.5 mmol/L (3.5-5.1); Total Bilirubin 0.5 mg/dL (0.2-1.3); Total Protein 5.1 g/dL (6.3-8.2)
[2022-05-13 06:08] LABS: Glucose,Whole Blood 142 mg/dL (70-110)
[2022-05-13] MEDS: PANTOPRAZOLE 40 MG TABLET PO SCH (07:08)
[2022-05-13] MEDS: INSULIN ASPART (NovoLOG) 100 UNIT/ML VIAL SQ SCH ×4 (07:08→21:50)
--- NOTE | 2022-05-13 07:13 | XR ---
EXAMINATION TYPE: XR chest 1V portable DATE OF EXAM: 05/13/2022 HISTORY: Post Operative Cardiac Surgery COMPARISON: 05/12/2022 TECHNIQUE: Single view of the chest is submitted. FINDINGS: Right-sided chest tube has been removed without sizable pneumothorax. Left-sided chest tube is in orlin ce as well as mediastinal drains. Left atrial clip. [place] catheter has been removed. Right IJ she ath remains in place. Post operative changes of CABG. No sizeable pneumothorax. Scattered Pleural-parenchymal opacities may reflect atelectasis. The heart mildly enlarged. IMPRESSION: 1. Essentially stable appearance of the chest with removal of right-sided chest tube and [place] c atheter.
[2022-05-13] MEDS: METOPROLOL TARTRATE 12.5 MG TAB PO SCH ×3 (08:34→21:52)
[2022-05-13] MEDS: ASPIRIN 325 MG TAB PO SCH (08:34)
[2022-05-13] MEDS: ATORVASTATIN 40 MG TAB PO SCH (08:34)
[2022-05-13] MEDS: CLOPIDOGREL 75 MG TAB PO SCH (08:34)
[2022-05-13] MEDS: IPRATROPIUM-ALBUTEROL 3 ML NEB INHALATION SCH ×4 (08:45→19:36)
--- NOTE | 2022-05-13 09:41 | P.PN ---
Subjective Progress Note Date: 05/13/22 Principal diagnosis: Triple-vessel coronary artery disease with unstable angina. Previous medical history of hyperlipidemia, BPH, obstructive sleep apnea without home CPAP use, covid in June 2021, skin cancer status post removal, lifelong non-smoker, and family history of premature coronary artery disease POD #2 coronary bypass grafting 3 with a left internal mammary artery to the left anterior descending artery, reverse saphenous vein graft off the aorta to the first obtuse marginal artery and the second obtuse marginal artery with right lower extremity greater saphenous vein endoscopic harvesting, clip ligation of the left atrial appendage with a 35 mm AtriClip and intraoperative transesophageal echocardiogram Postoperative acute blood loss anemia and thrombocytopenia, expected given hemodilution and cardiopulmonary bypass pump Atrial fibrillation, known common occurrence after open heart surgery Acute kidney injury, likely secondary to dehydration The patient was seen and examined this morning sitting up in a recliner in the intensive care unit in no acute distress. He was successfully extubated yesterday at 18:21. Remains in sinus rhythm, hemodynamically stable on no inotropes or pressors. He does admit to postsurgical chest pain, denies shortn ess of breath. Oxygenating well on 2 L nasal cannula. Right internal jugular [place]ord[place], right radial arterial line, mediastinal/left/right pleural chest tubes all remaining present. No other new concerns. Objective - Vital Signs Vital signs: Vital Signs Temp 98.5 F 05/13/22 08:00 Pulse 92 05/13/22 09:00 Resp 23 05/13/22 09:00 BP 110/56 05/13/22 09:00 Pulse Ox 95 05/13/22 09:00 FiO2 3 05/12/22 00:00 Intake & Output 05/12/22 05/13/22 05/13/22 18:59 06:59 18:59 Intake Total 926.567 488 330 Output Total 518 465 60 Balance 408.567 23 270 Weight 81.4 kg 84.9 kg Intake: IV 669 488 108 CO/CI 20 Lactated Ringers 1,000 ml 550 380 90 @ 20 mls/hr IV .Q24H [facility] Rx#:[id number] Pressure bags 99 108 18 Intake, IV Titration 257.567 Amount Albumin Human 5% 250 ml 250 In Empty Bag 1 bag @ 250 mls/hr IVPB Q1HR PRN Rx#: [id number] Insulin Regular 100 unit 7.567 In Sodium Chloride 0.9% 100 ml @ Per Protocol IV .Q0M [facility] Rx#:[id number] Oral 222 Output: Chest Tube Drainage 320 180 10 Chest Tube Left Lateral 100 130 Chest Chest Tube Mediastinal 190 50 10 Chest Tube Right Lateral 30 Chest Urine 198 285 50 Other: Voiding Method Indwelling Catheter Indwelling Catheter ABP, PAP, CO, CI - Last Documented Arterial Blood Pressure 123/45 Pulmonary Artery Pressure 16/4 Cardiac Output 4.8 Cardiac Index 2.5 - Exam CONSTITUTIONAL: Appears comfortable, cooperative, no acute distress RESPIRATORY: Lungs sounds diminished bilaterally. Respirations even, nonlabored. Currently on 2 L nasal cannula with oxygen saturation 94%. Able to achieve 750 mL on incentive spirometry. Strong cough. CARDIOVASCULAR: S1, S2 present. Irregular rate and rhythm, controlled atrial fibrillation on telemetry. Sternum stable. Palpable peripheral pulses bilaterally. No edema present. No calf pain or tenderness noted. Heart hugger in place with patient demonstrating appropriate use. Antiembolism stockings, SCDs present. GASTROINTESTINAL: Abdomen soft, nontender, nondistended. Active bowel sounds present 4 quadrants. Tolerating diet. Positive belching and flatus GENITOURINARY: Blas present draining clear, yellow urine. Output overnight 20-60 mL per hour, 438 mL in the last 24 hours INTEGUMENTARY: Skin is warm and dry with evidence of good perfusion. Anterior chest incision well approximated and covered with dry intact dressing. Right lower extremity EVH site well approximated without redness or drainage. NEUROLOGIC: Cranial nerves II through XII intact MUSKULOSKELETAL: Able to move all extremities, strength equal bilaterally, gait normal PSYCHIATRIC: Alert and oriented to person place and time, appropriate affect, intact judgment and insight INVASIVE LINES AND TUBES: Mediastinal/left pleural chest tubes present and c onnected to wall suction, no air leaks present. Mediastinal tube with 50 mL serosanguineous drainage overnight, 250 mL in the last 24 hours. Left pleural chest tube with 120 mL serosanguineous drainage overnight, 300 mL in the last 24 hours. A/V epicardial pacemaker wires present, grounded. Right internal jugular Cordis, right radial arterial line present. - Allied health notes Allied health notes reviewed: nursing - Labs CBC & Chem 7: 05/13/22 05:11 05/13/22 05:11 Labs: Abnormal Lab Results - Last 24 Hours (Table) 06/21/22 06/21/22 06/21/22 Range/Units 10:07 11:06 11:52 RBC (4.30-5.90) m/uL Hgb (13.0-17.5) gm/dL Hct (39.0-53.0) % Plt Count (150-450) k/uL Lymphocytes # (1.0-4.8) k/uL Sodium (137-145) mmol/L BUN (9-20) mg/dL Creatinine (0.66-1.25) mg/dL Glucose (74-99) mg/dL POC Glucose (mg/dL) 139 H 116 H 123 H (70-110) mg/dL Calcium (8.4-10.2) mg/dL Alkaline Phosphatase (38-126) U/L Total Protein (6.3-8.2) g/dL Albumin (3.5-5.0) g/dL 05/12/22 05/12/22 05/12/22 Range/Units 13:15 17:11 20:18 RBC (4.30-5.90) m/uL Hgb (13.0-17.5) gm/dL Hct (39.0-53.0) % Plt Count (150-450) k/uL Lymphocytes # (1.0-4.8) k/uL Sodium (137-145) mmol/L BUN (9-20) mg/dL Creatinine (0.66-1.25) mg/dL Glucose (74-99) mg/dL POC Glucose (mg/dL) 155 H 160 H 186 H (70-110) mg/dL Calcium (8.4-10.2) mg/dL Alkaline Phosphatase (38-126) U/L Total Protein (6.3-8.2) g/dL Albumin (3.5-5.0) g/dL 05/12/22 05/13/22 05/13/22 Range/Units 21:53 05:11 05:11 RBC 2.78 L (4.30-5.90) m/uL Hgb 9.2 L (13.0-17.5) gm/dL Hct 27.1 L (39.0-53.0) % Plt Count 79 L (150-450) k/uL Lymphocytes # 0.6 L (1.0-4.8) k/uL Sodium 128 L (137-145) mmol/L BUN 32 H (9-20) mg/dL Creatinine 2.09 H (0.66-1.25) mg/dL Glucose 146 H (74-99) mg/dL POC Glucose (mg/dL) 183 H (70-110) mg/dL Calcium 7.9 L (8.4-10.2) mg/dL Alkaline Phosphatase 32 L (38-126) U/L Total Protein 5.1 L (6.3-8.2) g/dL Albumin 3.3 L (3.5-5.0) g/dL 05/13/22 Range/Units 06:06 RBC (4.30-5.90) m/uL Hgb (13.0-17.5) gm/dL Hct (39.0-53.0) % Plt Count (150-450) k/uL Lymphocytes # (1.0-4.8) k/uL Sodium (137-145) mmol/L BUN (9-20) mg/dL Creatinine (0.66-1.25) mg/dL Glucose (74-99) mg/dL POC Glucose (mg/dL) 142 H (70-110) mg/dL Calcium (8.4-10.2) mg/dL Alkaline Phosphatase (38-126) U/L Total Protein (6.3-8.2) g/dL Albumin (3.5-5.0) g/dL - Imaging and Cardiology Chest x-ray: report reviewed, image reviewed Assessment and Plan Assessment: 1. Triple-vessel coronary artery disease with unstable angina, status post three-vessel CABG 2. Hyperlipidemia, treated, cholesterol 171, LDL 94.5 3. BPH, on Flomax outpatient 4. Obstructive sleep apnea without home CPAP use 5. Covid in June 2021 6. Skin cancer status post removal 7. Lifelong non-smoker 8. Family history of premature coronary artery disease 9. Postoperative acute blood loss anemia and thrombocytopenia, expected 10. Atrial fibrillation, controlled 11. YANDEL Plan: 1. Continue aspirin, statin, Plavix, beta nicolas therapy. Will increase beta nicolas therapy as tolerated. 2. Continue amiodarone for A. fib prophylaxis, will transition to oral. No anticoagulation necessary unless in atrial fibrillation greater than 24 hours 3. Wean O2 as tolerated. Encourage incentive spirometry is 10 times every hour while awake. Bronchodilators per pulmonology 4. Increase activity as tolerated. PT/OT/cardiac rehab consulted 5. Will monitor daily labs and x-rays. Electrolyte replacement per protocol. No Lasix today 6. GI/DVT prophylaxis 7. Pain control with current medication regimen 8. Insulin management per primary care service. Patient is not diabetic, pre operative hemoglobin A1c 5.5% 9. Discontinue [place]. Connect Cordis continuous CVP monitoring 10. Will discontinue mediastinal and left pleural chest tubes 11. Discontinue Blas. May bladder scan and straight cath for greater than 300 mL residual. Continue Flomax 12. Strict accurate intake and output. Daily weights 13. More recommendations to follow as appropriate
[2022-05-13 11:12] LABS: Glucose,Whole Blood 138 mg/dL (70-110)
--- NOTE | 2022-05-13 11:36 | P.PN ---
Subjective Progress Note Date: 05/13/22 Principal diagnosis: Status post CABG. This is a 77-year-old male patient with a known history of hypertension, hyperlipidemia, BPH. Lifelong nonsmoker. He had presented here 04/09/2022 for an elective cardiac catheterization and was found to have triple-vessel coronary artery disease. Echocardiogram had revealed preserved left ventricular systolic function with ejection fraction 55-60%. No significant valvular abnormalities. He was recommended coronary artery bypass grafting. He was brought in today for the surgery and had undergone a PETERS to LAD, saphenous vein grafts to the OM1 and OM 2. He is seen now in the immediate postop period up in the in the intensive care unit. He is intubated on mechanical ventilator. Current settings are assist-control mode with a respiratory rate of 14, tidal volume 450, FiO2 100% and a PEEP of 5. Blood gases are pending. Labs are pending. Chest x-ray pending. He was initially on norepinephrine drip at 0.02 mcg/kg/m that is currently on hold. He is a nitroglycerin drip at 5 mcg/m. Propofol at 20 mcg/kg/m. Lactated Ringer's at 50 MLS per hour. He has a right [place] catheter in place. Cardiac output 4.2. Cardiac index 2.2. PA pressure 22/11. He has a left, mediastinal and right chest tubes in place. Right radial arterial line in place. He received 2 units of fresh frozen plasma and 1 unit of platelets thus far. Blood glucose 137. Progress note dated 05/12/2022. This is a 77-year-old male who is postop day #1, status post three-vessel bypass grafting. The patient's doing well. The patient is currently on 2 L nasal cannula. The patient's getting insulin drip at 0.5 units per hour. The patien t's getting lactated Ringer's at 50 mL an hour, and nitroglycerin at 5 mcg/m. The patient had an uneventful night according to the nurses. The patient was extubated in routine fashion. White count 5.7, hemoglobin 9.7, hematocrit 28, platelet count 87,000. Chest x-ray shows postsurgical changes, bibasilar atelectasis, and bilateral chest tubes. Progress note dated 05/13/2022. This is a 77-year-old male who was seen in consultation at couple days ago. He is postop day #2, status post three-vessel bypass grafting. Currently, he's on 3 L nasal cannula. The patient did develop atrial fibrillation with RVR last night, and was placed on amiodarone 0.5 mg/m. The patient is also receiving l actated Ringer's at 30 mL an hour. Laboratory data are reviewed, with a white count of 7.6, hemoglobin 9.2, hematocrit 27.1, and platelet count 79,000. Sodium 128, potassium 4.5, chlorides 98, CO2 25, BUN 32, creatinine 2.09. Albumin 3.3. Chest x-ray shows postsurgical changes. Objective - Vital Signs Vital signs: Vital Signs Temp 98.5 F 05/13/22 08:00 Pulse 86 05/13/22 10:00 Resp 19 05/13/22 10:00 BP 112/60 05/13/22 10:00 Pulse Ox 96 05/13/22 10:00 FiO2 3 05/12/22 00:00 Intake & Output 05/12/22 05/13/22 05/13/22 18:59 06:59 18:59 Intake Total 926.567 488 608 Output Total 518 465 122 Balance 408.567 23 486 Weight 81.4 kg 84.9 kg Intake: IV 669 488 186 CO/CI 20 Lactated Ringers 1,000 ml 550 380 150 @ 20 mls/hr IV .Q24H [facility] Rx#:[id number] Pressure bags 99 108 36 Intake, IV Titration 257.567 Amount Albumin Human 5% 250 ml 250 In Empty Bag 1 bag @ 250 mls/hr IVPB Q1HR PRN Rx#: [id number] Insulin Regular 100 unit 7.567 In Sodium Chloride 0.9% 100 ml @ Per Protocol IV .Q0M [facility] Rx#:[id number] Oral 422 Output: Chest Tube Drainage 320 180 40 Chest Tube Left Lateral 100 130 30 Chest Chest Tube Mediastinal 190 50 10 Chest Tube Right Lateral 30 Chest Urine 198 285 82 Other: Voiding Method Indwelling Catheter Indwelling Catheter Indwelling Catheter ABP, PAP, CO, CI - Last Documented Arterial Blood Pressure 126/40 Pulmonary Artery Pressure 16/4 Cardiac Output 4.8 Cardiac Index 2.5 - Labs CBC & Chem 7: 05/13/22 05:11 05/13/22 05:11 Labs: Abnormal Lab Results - Last 24 Hours (Table) 05/12/22 05/12/22 05/12/22 Range/Units 11:52 13:15 17:11 RBC (4.30-5.90) m/uL Hgb (13.0-17.5) gm/dL Hct (39.0-53.0) % Plt Count (150-450) k/uL Lymphocytes # (1.0-4.8) k/uL Sodium (137-145) mmol/L BUN (9-20) mg/dL Creatinine (0.66-1.25) mg/dL Glucose (74-99) mg/dL POC Glucose (mg/dL) 123 H 155 H 160 H (70-110) mg/dL Calcium (8.4-10.2) mg/dL Alkaline Phosphatase (38-126) U/L Total Protein (6.3-8.2) g/dL Albumin (3.5-5.0) g/dL 05/12/22 05/12/22 05/13/22 Range/Units 20:18 21:53 05:11 RBC 2.78 L (4.30-5.90) m/uL Hgb 9.2 L (13.0-17.5) gm/dL Hct 27.1 L (39.0-53.0) % Plt Count 79 L (150-450) k/uL Lymphocytes # 0.6 L (1.0-4.8) k/uL Sodium (137-145) mmol/L BUN (9-20) mg/dL Creatinine (0.66-1.25) mg/dL Glucose (74-99) mg/dL POC Glucose (mg/dL) 186 H 183 H (70-110) mg/dL Calcium (8.4-10.2) mg/dL Alkaline Phosphatase (38-126) U/L Total Protein (6.3-8.2) g/dL Albumin (3.5-5.0) g/dL 05/13/22 05/13/22 05/13/22 Range/Units 05:11 06:06 11:10 RBC (4.30-5.90) m/uL Hgb (13.0-17.5) gm/dL Hct (39.0-53.0) % Plt Count (150-450) k/uL Lymphocytes # (1.0-4.8) k/uL Sodium 128 L (137-145) mmol/L BUN 32 H (9-20) mg/dL Creatinine 2.09 H (0.66-1.25) mg/dL Glucose 146 H (74-99) mg/dL POC Glucose (mg/dL) 142 H 138 H (70-110) mg/dL Calcium 7.9 L (8.4-10.2) mg/dL Alkaline Phosphatase 32 L (38-126) U/L Total Protein 5.1 L (6.3-8.2) g/dL Albumin 3.3 L (3.5-5.0) g/dL Assessment and Plan Assessment: Postoperative day #2, that is post three-vessel bypass grafting. Routine postoperative ventilator management, with extubation on May 11. Postoperative atrial fibrillation with rapid ventricular response. History of hypertension. History of hyperlipidemia. Lifelong nonsmoker. History of BPH. Family history of CAD. Plan: Plan dated 05/12/2022. The patient's doing very well. He was extubated in timely fashion. He is on 2 L with excellent saturations. We recommend deep breathing, coughing, clearing of secretions. We also recommend hourly use of the incentive spirometer. No additional recommendations are made. Labs, x-rays, and medications are reviewed. Prognosis is guarded. We will continue to follow the patient and make recommendations as needed. Plan dated 05/13/2022. The patient's doing reasonably well. He is on amiodarone because of atrial fibrillation. He remains on 3 L nasal cannula, and lactated Ringer's at 30 mL an hour. Labs, x-rays, medications are all reviewed. The patient's prognosis is guarded. We will continue to follow the patient and make recommendations where appropriate. Time with Patient: Less than 30
[2022-05-13] MEDS: LACTATED RINGERS 1,000 ML IV SCH (12:12)
--- NOTE | 2022-05-13 16:11 | P.PN ---
Subjective Progress Note Date: 05/13/22 Principal diagnosis: Status post open heart The patient is a pleasant 77-year-old gentleman who was diagnosed with severe triple-vessel coronary artery disease and underwent CABG. The patient was seen this morning. He is doing overall well. He went into atrial fibrillation was overall controlled heart rate and he is currently on amiodarone. Otherwise he is a stable. He is on dual antiplatelet therapy along with beta nicolas as well as a statin. We'll continue monitor the patient and if she continues to be in atrial fibrillation for additional 24 hours he might need to go on oral anticoagulation. Objective - Vital Signs Vital signs: Vital Signs Temp 98.0 F 05/13/22 12:00 Pulse 92 05/13/22 15:00 Resp 15 05/13/22 15:00 BP 108/61 05/13/22 15:00 Pulse Ox 94 L 05/13/22 15:00 FiO2 3 05/12/22 00:00 Intake & Output 05/12/22 05/13/22 05/13/22 18:59 06:59 18:59 Intake Total 926.567 488 947 Output Total 518 465 162 Balance 408.567 23 785 Weight 81.4 kg 84.9 kg Intake: IV 669 488 303 CO/CI 20 Lactated Ringers 1,000 ml 550 380 240 @ 20 mls/hr IV .Q24H [facility] Rx#:[id number] Pressure bags 99 108 63 Intake, IV Titration 257.567 Amount Albumin Human 5% 250 ml 250 In Empty Bag 1 bag @ 250 mls/hr IVPB Q1HR PRN Rx#: [id number] Insulin Regular 100 unit 7.567 In Sodium Chloride 0.9% 100 ml @ Per Protocol IV .Q0M [facility] Rx#:[id number] Oral 644 Output: Chest Tube Drainage 320 180 50 Chest Tube Left Lateral 100 130 40 Chest Chest Tube Mediastinal 190 50 10 Chest Tube Right Lateral 30 Chest Urine 198 285 112 Other: Voiding Method Indwelling Catheter Indwelling Catheter Indwelling Catheter # Voids 0 ABP, PAP, CO, CI - Last Documented Arterial Blood Pressure 102/39 Pulmonary Artery Pressure 16/4 Cardiac Output 4.8 Cardiac Index 2.5 - Constitutional General appearance: Present: no acute distress - Respiratory Respiratory: bilateral: diminished - Cardiovascular Rhythm: irregularly irregular Heart sounds: normal: S1, S2 - Labs CBC & Chem 7: 05/13/22 05:11 05/13/22 05:11 Labs: Abnormal Lab Results - Last 24 Hours (Table) 05/12/22 05/12/22 05/12/22 Range/Units 17:11 20:18 21:53 RBC (4.30-5.90) m/uL Hgb (13.0-17.5) gm/dL Hct (39.0-53.0) % Plt Count (150-450) k/uL Lymphocytes # (1.0-4.8) k/uL Sodium (137-145) mmol/L BUN (9-20) mg/dL Creatinine (0.66-1.25) mg/dL Glucose (74-99) mg/dL POC Glucose (mg/dL) 160 H 186 H 183 H (70-110) mg/dL Calcium (8.4-10.2) mg/dL Alkaline Phosphatase (38-126) U/L Total Protein (6.3-8.2) g/dL Albumin (3.5-5.0) g/dL 05/13/22 05/13/22 05/13/22 Range/Units 05:11 05:11 06:06 RBC 2.78 L (4.30-5.90) m/uL Hgb 9.2 L (13.0-17.5) gm/dL Hct 27.1 L (39.0-53.0) % Plt Count 79 L (150-450) k/uL Lymphocytes # 0.6 L (1.0-4.8) k/uL Sodium 128 L (137-145) mmol/L BUN 32 H (9-20) mg/dL Creatinine 2.09 H (0.66-1.25) mg/dL Glucose 146 H (74-99) mg/dL POC Glucose (mg/dL) 142 H (70-110) mg/dL Calcium 7.9 L (8.4-10.2) mg/dL Alkaline Phosphatase 32 L (38-126) U/L Total Protein 5.1 L (6.3-8.2) g/dL Albumin 3.3 L (3.5-5.0) g/dL 05/13/22 Range/Units 11:10 RBC (4.30-5.90) m/uL Hgb (13.0-17.5) gm/dL Hct (39.0-53.0) % Plt Count (150-450) k/uL Lymphocytes # (1.0-4.8) k/uL Sodium (137-145) mmol/L BUN (9-20) mg/dL Creatinine (0.66-1.25) mg/dL Glucose (74-99) mg/dL POC Glucose (mg/dL) 138 H (70-110) mg/dL Calcium (8.4-10.2) mg/dL Alkaline Phosphatase (38-126) U/L Total Protein (6.3-8.2) g/dL Albumin (3.5-5.0) g/dL Assessment and Plan Assessment: Assessment #1 severe triple-vessel CAD and status post CABG as described above #2 history of smoking #3 hypertension #4 dyslipidemia #5 preserved left ventricular systolic function Plan #1 continue the current medical regimen including dual antiplatelet therapy #2 continue amiodarone IV #3 consider oral anticoagulation if the patient continues to be in A. fib
[2022-05-13 17:32] LABS: Glucose,Whole Blood 208 mg/dL (70-110)
[2022-05-13] MEDS: AMIODARONE 450 MG in DEXTROSE 5% IN WATER 250 ML IV PRN ×2 (17:35)
[2022-05-13 21:21] LABS: Glucose,Whole Blood 148 mg/dL (70-110)
[2022-05-13] MEDS: TAMSULOSIN 0.4 MG CAP.ER.24H PO SCH (21:49)
[2022-05-13] MEDS: AMIODARONE 200 MG TAB PO SCH (21:49)
[2022-05-13] MEDS: SENNOSIDES-DOCUSATE SODIUM 1 EACH TAB PO SCH (21:49)
[2022-05-14 04:45] LABS: Basophils % (A) 0 %; Eosinophils # (A) 0.1 k/uL (0-0.7); Eosinophils % (A) 2 %; HCT 25.5 % (39.0-53.0); HGB 8.6 gm/dL (13.0-17.5); Lymphocytes # (A) 0.9 k/uL (1.0-4.8); Lymphocytes % (A) 12 %; MCH 32.4 pg (25.0-35.0); MCHC 33.6 g/dL (31.0-37.0); MCV 96.3 fL (80.0-100.0); Mean Platelet Volume 11.1; Monocytes # (A) 0.5 k/uL (0-1.0); Monocytes % (A) 7 %; Neutrophils % (A) 79 %; RBC 2.64 m/uL (4.30-5.90); RDW 12.6 % (11.5-15.5); WBC 7.6 k/uL (3.8-10.6)
[2022-05-14 04:46] LABS: Platelet Count 73 k/uL (150-450)
[2022-05-14] MEDS: MAGNESIUM HYDROXIDE 2,400 MG/10 ML CUP PO PRN (04:49)
[2022-05-14] MEDS: METOCLOPRAMIDE 5 MG/ML 2 ML VIAL IVP PRN (04:49)
[2022-05-14 04:58] LABS: Calcium 7.8 mg/dL (8.4-10.2); Potassium 4.5 mmol/L (3.5-5.1); Total Bilirubin 0.4 mg/dL (0.2-1.3)
[2022-05-14 06:50] LABS: Glucose,Whole Blood 147 mg/dL (70-110)
[2022-05-14] MEDS: PANTOPRAZOLE 40 MG TABLET PO SCH (06:56)
[2022-05-14] MEDS: INSULIN ASPART (NovoLOG) 100 UNIT/ML VIAL SQ SCH ×4 (06:56→20:30)
--- NOTE | 2022-05-14 07:43 | XR ---
EXAMINATION TYPE: XR chest 1V portable DATE OF EXAM: 05/14/2022 COMPARISON: 05/13/2022 INDICATION: Postcardiac surgery TECHNIQUE: Single frontal view of the chest is obtained. FINDINGS: The heart size is mildly prominent. The pulmonary vasculature is normal. Left lower lobe infiltrate is present. Small left pleural effusion may be developing. Mild right basi lar infiltrate is present. Mediastinal tube and left-sided chest tube been removed. Sternotomy wires are in the midline from prior CABG. IMPRESSION: 1. Worsening bibasilar infiltrates and possible developing small left pleural effusion. Follow-up is recommended.
[2022-05-14] MEDS: IPRATROPIUM-ALBUTEROL 3 ML NEB INHALATION SCH ×4 (08:04→20:34)
[2022-05-14] MEDS: HEPARIN SODIUM,PORCINE/PF 5,000 UNIT/0.5 ML SYRINGE SQ SCH ×3 (08:11→23:56)
[2022-05-14] MEDS: ASPIRIN 325 MG TAB PO SCH (08:11)
[2022-05-14] MEDS: AMIODARONE 200 MG TAB PO SCH ×2 (08:12→20:29)
[2022-05-14] MEDS: CLOPIDOGREL 75 MG TAB PO SCH (08:12)
[2022-05-14] MEDS: ATORVASTATIN 40 MG TAB PO SCH (08:12)
[2022-05-14] MEDS: METOPROLOL TARTRATE 25 MG TAB PO SCH ×2 (08:12→20:29)
--- NOTE | 2022-05-14 09:33 | P.PN ---
Subjective Progress Note Date: 05/14/22 Principal diagnosis: Status post open heart The patient is a pleasant 77-year-old gentleman who was diagnosed with severe triple-vessel coronary artery disease and underwent CABG. when he was seen yesterday he was in atrial fibrillation and he was on amiodarone IV. The patient was seen today. He is stable from a cardiovascular standpoint of view. He was converted to normal sinus mechanism this first breaker feeder. His creatinine is worse. Currently he is on dual antiplatelet therapy as well as he is on beta nicolas and the dose has increased earlier today which I would agree with. No need for anticoagulation since A. fib lasted less than 24-48 hours. Objective - Vital Signs Vital signs: Vital Signs Temp 99.2 F 05/14/22 04:00 Pulse 71 05/14/22 08:15 Resp 23 05/14/22 07:00 BP 128/59 05/14/22 07:00 Pulse Ox 95 05/14/22 08:04 FiO2 3 05/12/22 00:00 Intake & Output 05/13/22 05/14/22 05/14/22 18:59 06:59 18:59 Intake Total 1321 624.335 Output Total 162 100 Balance 1159 524.335 Weight 86.3 kg Intake: IV 407 276 Lactated Ringers 1,000 ml 320 240 @ 20 mls/hr IV .Q24H [facility] Rx#:[id number] Pressure bags 87 36 Intake, IV Titration 270 98.335 Amount Amiodarone 450 mg In 250 98.335 Dextrose 5% in Water 250 ml @ 0.5 MG/MIN 16.667 mls/hr IV .Q15H [facility] Rx#: [id number] Lactated Ringers 1,000 ml 20 @ 20 mls/hr IV .Q24H [facility] Rx#:[id number] Oral 644 250 Output: Chest Tube Drainage 50 Chest Tube Left Lateral 40 Chest Chest Tube Mediastinal 10 Urine 112 100 Other: Voiding Method Indwelling Catheter # Voids 0 1 ABP, PAP, CO, CI - Last Documented Arterial Blood Pressure 123/37 Pulmonary Artery Pressure 16/4 Cardiac Output 4.8 Cardiac Index 2.5 - Constitutional General appearance: Present: no acute distress - Respiratory Respiratory: bilateral: CTA - Cardiovascular Rhythm: regular - Labs CBC & Chem 7: 05/14/22 04:30 05/14/22 04:30 Labs: Abnormal Lab Results - Last 24 Hours (Table) 05/13/22 05/13/22 05/13/22 Range/Units 11:10 17:31 21:19 RBC (4.30-5.90) m/uL Hgb (13.0-17.5) gm/dL Hct (39.0-53.0) % Plt Count (150-450) k/uL Lymphocytes # (1.0-4.8) k/uL Sodium (137-145) mmol/L Chloride (98-107) mmol/L BUN (9-20) mg/dL Creatinine (0.66-1.25) mg/dL Glucose (74-99) mg/dL POC Glucose (mg/dL) 138 H 208 H 148 H (70-110) mg/dL Calcium (8.4-10.2) mg/dL Total Protein (6.3-8.2) g/dL Albumin (3.5-5.0) g/dL 05/14/22 05/14/22 05/14/22 Range/Units 04:30 04:30 06:49 RBC 2.64 L (4.30-5.90) m/uL Hgb 8.6 L (13.0-17.5) gm/dL Hct 25.5 L (39.0-53.0) % Plt Count 73 L (150-450) k/uL Lymphocytes # 0.9 L (1.0-4.8) k/uL Sodium 125 L (137-145) mmol/L Chloride 96 L (98-107) mmol/L BUN 44 H (9-20) mg/dL Creatinine 2.83 H (0.66-1.25) mg/dL Glucose 135 H (74-99) mg/dL POC Glucose (mg/dL) 147 H (70-110) mg/dL Calcium 7.8 L (8.4-10.2) mg/dL Total Protein 5.0 L (6.3-8.2) g/dL Albumin 3.0 L (3.5-5.0) g/dL Assessment and Plan Assessment: Assessment #1 severe triple-vessel CAD and status post CABG as described above #2 history of smoking #3 hypertension #4 dyslipidemia #5 preserved left ventricular systolic function Plan #1 continue the current medical regimen including dual antiplatelet therapy #2 continue amiodarone by mouth #3 avoid nephrotoxic medication #4 follow-up with the patient
--- NOTE | 2022-05-14 09:50 | P.PN ---
Subjective Progress Note Date: 05/14/22 Principal diagnosis: Status post CABG. This is a 77-year-old male patient with a known history of hypertension, hyperlipidemia, BPH. Lifelong nonsmoker. He had presented here 04/09/2022 for an elective cardiac catheterization and was found to have triple-vessel coronary artery disease. Echocardiogram had revealed preserved left ventricular systolic function with ejection fraction 55-60%. No significant valvular abnormalities. He was recommended coronary artery bypass grafting. He was brought in today for the surgery and had undergone a PETERS to LAD, saphenous vein grafts to the OM1 and OM 2. He is seen now in the immediate postop period up in the in the intensive care unit. He is intubated on mechanical ventilator. Current settings are assist-control mode with a respiratory rate of 14, tidal volume 450, FiO2 100% and a PEEP of 5. Blood gases are pending. Labs are pending. Chest x-ray pending. He was initially on norepinephrine drip at 0.02 mcg/kg/m that is currently on hold. He is a nitroglycerin drip at 5 mcg/m. Propofol at 20 mcg/kg/m. Lactated Ringer's at 50 MLS per hour. He has a right [place] catheter in place. Cardiac output 4.2. Cardiac index 2.2. PA pressure 22/11. He has a left, mediastinal and right chest tubes in place. Right radial arterial line in place. He received 2 units of fresh frozen plasma and 1 unit of platelets thus far. Blood glucose 137. Progress note dated 05/12/2022. This is a 77-year-old male who is postop day #1, status post three-vessel bypass grafting. The patient's doing well. The patient is currently on 2 L nasal cannula. The patient's getting insulin drip at 0.5 units per hour. The patien t's getting lactated Ringer's at 50 mL an hour, and nitroglycerin at 5 mcg/m. The patient had an uneventful night according to the nurses. The patient was extubated in routine fashion. White count 5.7, hemoglobin 9.7, hematocrit 28, platelet count 87,000. Chest x-ray shows postsurgical changes, bibasilar atelectasis, and bilateral chest tubes. Progress note dated 05/13/2022. This is a 77-year-old male who was seen in consultation at couple days ago. He is postop day #2, status post three-vessel bypass grafting. Currently, he's on 3 L nasal cannula. The patient did develop atrial fibrillation with RVR last night, and was placed on amiodarone 0.5 mg/m. The patient is also receiving l actated Ringer's at 30 mL an hour. Laboratory data are reviewed, with a white count of 7.6, hemoglobin 9.2, hematocrit 27.1, and platelet count 79,000. Sodium 128, potassium 4.5, chlorides 98, CO2 25, BUN 32, creatinine 2.09. Albumin 3.3. Chest x-ray shows postsurgical changes. Progress note dated 05/14/2022. This is a 77-year-old male seen in consultation couple days ago. He is postop day #3, that is close three-vessel bypass grafting. He remains on oxygen at 2 L. He's not receiving any IV fluids. Yesterday, he was on IV amiodarone because of atrial fibrillation with RVR. He converted, and is now on oral amiodarone. White count 7.6, hemoglobin 8.6, hematocrit 25.5, and platelet count 73,000. Sodium 125, potassium 4.5, chlorides 96, CO2 25, BUN 44, and creatinine 2.83. Calcium 7.8, and albumin is 3. Chest x-ray shows some bibasilar infiltrates, somewhat worse. Objective - Vital Signs Vital signs: Vital Signs Temp 99.2 F 05/14/22 04:00 Pulse 71 05/14/22 08:15 Resp 23 05/14/22 07:00 BP 128/59 05/14/22 07:00 Pulse Ox 95 05/14/22 08:04 FiO2 3 05/12/22 00:00 Intake & Output 05/13/22 05/14/22 05/14/22 18:59 06:59 18:59 Intake Total 1321 624.335 Output Total 162 100 Balance 1159 524.335 Weight 86.3 kg Intake: IV 407 276 Lactated Ringers 1,000 ml 320 240 @ 20 mls/hr IV .Q24H [facility] Rx#:[id number] Pressure bags 87 36 Intake, IV Titration 270 98.335 Amount Amiodarone 450 mg In 250 98.335 Dextrose 5% in Water 250 ml @ 0.5 MG/MIN 16.667 mls/hr IV .Q15H PRN Rx#: [id number] Lactated Ringers 1,000 ml 20 @ 20 mls/hr IV .Q24H [facility] Rx#:[id number] Oral 644 250 Output: Chest Tube Drainage 50 Chest Tube Left Lateral 40 Chest Chest Tube Mediastinal 10 Urine 112 100 Other: Voiding Method Indwelling Catheter # Voids 0 1 ABP, PAP, CO, CI - Last Documented Arterial Blood Pressure 123/37 Pulmonary Artery Pressure 16/4 Cardiac Output 4.8 Cardiac Index 2.5 - Exam No acute distress, oriented 3. Currently on 2 L nasal cannula. HEENT examination is grossly unremarkable. Neck supple. Full range of motion. No adenopathy thyromegaly or neck vein distention. Cardiovascular examination reveals regular rhythm rate. S1-S2 normal. No S3 or S4. No discernible murmur noted. Heart rate 71 bpm. Lungs reveal mostly clear breath sounds. Scattered rhonchi are noted. No wheezes or crackles. Breath sounds equal bilaterally. Saturations are 95%. Abdomen soft bowel sounds are heard. No masses or tenderness. Extremities are intact. No cyanosis clubbing or edema. Skin is without rash or lesion. Neurologic examination is brief but nonfocal. - Labs CBC & Chem 7: 05/14/22 04:30 05/14/22 04:30 Labs: Abnormal Lab Results - Last 24 Hours (Table) 05/13/22 05/13/22 05/13/22 Range/Units 11:10 17:31 21:19 RBC (4.30-5.90) m/uL Hgb (13.0-17.5) gm/dL Hct (39.0-53.0) % Plt Count (150-450) k/uL Lymphocytes # (1.0-4.8) k/uL Sodium (137-145) mmol/L Chloride (98-107) mmol/L BUN (9-20) mg/dL Creatinine (0.66-1.25) mg/dL Glucose (74-99) mg/dL POC Glucose (mg/dL) 138 H 208 H 148 H (70-110) mg/dL Calcium (8.4-10.2) mg/dL Total Protein (6.3-8.2) g/dL Albumin (3.5-5.0) g/dL 05/14/22 05/14/22 05/14/22 Range/Units 04:30 04:30 06:49 RBC 2.64 L (4.30-5.90) m/uL Hgb 8.6 L (13.0-17.5) gm/dL Hct 25.5 L (39.0-53.0) % Plt Count 73 L (150-450) k/uL Lymphocytes # 0.9 L (1.0-4.8) k/uL Sodium 125 L (137-145) mmol/L Chloride 96 L (98-107) mmol/L BUN 44 H (9-20) mg/dL Creatinine 2.83 H (0.66-1.25) mg/dL Glucose 135 H (74-99) mg/dL POC Glucose (mg/dL) 147 H (70-110) mg/dL Calcium 7.8 L (8.4-10.2) mg/dL Total Protein 5.0 L (6.3-8.2) g/dL Albumin 3.0 L (3.5-5.0) g/dL Assessment and Plan Assessment: Postoperative day #3, that is post three-vessel bypass grafting. Routine postoperative ventilator management, with extubation on May 11. Postoperative atrial fibrillation with rapid ventricular response. History of hypertension. History of hyperlipidemia. Lifelong nonsmoker. History of BPH. Family history of CAD. Plan: Plan dated 05/12/2022. The patient's doing very well. He was extubated in timely fashion. He is on 2 L with excellent saturations. We recommend deep breathing, coughing, clearing of secretions. We also recommend hourly use of the incentive spirometer. No additional recommendations are made. Labs, x-rays, and medications are reviewed. Prognosis is guarded. We will continue to follow the patient and make recommendations as needed. Plan dated 05/13/2022. The patient's doing reasonably well. He is on amiodarone because of atrial fibrillation. He remains on 3 L nasal cannula, and lactated Ringer's at 30 mL an hour. Labs, x-rays, medications are all reviewed. The patient's prognosis is guarded. We will continue to follow the patient and make recommendations where appropriate. Plan dated 05/14/2022. The patient appears to be doing better. He's postop day #3. He is on 2 L nasal cannula. Not receiving any IV fluids the patient's atrial fibrillation has converted to normal sinus rhythm. IV amiodarone was changed to oral amiodarone. We will continue to follow the patient and make recommendations. Prognosis is guarded. Labs, x-rays, and medications are all reviewed. Time with Patient: Less than 30
--- NOTE | 2022-05-14 10:24 | P.PN ---
Subjective Progress Note Date: 05/14/22 Principal diagnosis: Triple-vessel coronary artery disease with unstable angina. Previous medical history of hyperlipidemia, BPH, obstructive sleep apnea without home CPAP use, covid in June 2021, skin cancer status post removal, lifelong non-smoker, and family history of premature coronary artery disease POD #3 coronary bypass grafting 3 with a left internal mammary artery to the left anterior descending artery, reverse saphenous vein graft off the aorta to the first obtuse marginal artery and the second obtuse marginal artery with right lower extremity greater saphenous vein endoscopic harvesting, clip ligation of the left atrial appendage with a 35 mm AtriClip and intraoperative transesophageal echocardiogram Postoperative acute blood loss anemia and thrombocytopenia, expected given hemodilution and cardiopulmonary bypass pump Atrial fibrillation, known common occurrence after open heart surgery Acute kidney injury, likely secondary to dehydration The patient was seen and examined this morning sitting up in a recliner in the intensive care unit in no acute distress. Remains in sinus rhythm, hemodynamically stable, did convert from A. fib yesterday to sinus yesterday evening. He does admit to postsurgical chest pain but better since removal of chest tubes, denies shortness of breath. Oxygenating well on 2 L nasal cannula. He has ambulated in the hallway with assistance without difficulty. Kidney function is a bit worse, however clinically patient looks better every day. No other new concerns. Objective - Vital Signs Vital signs: Vital Signs Temp 99.2 F 05/14/22 04:00 Pulse 71 05/14/22 08:15 Resp 23 05/14/22 07:00 BP 128/59 05/14/22 07:00 Pulse Ox 95 05/14/22 08:04 FiO2 3 05/12/22 00:00 Intake & Output 05/13/22 05/14/22 05/14/22 18:59 06:59 18:59 Intake Total 1321 624.335 Output Total 162 100 Balance 1159 524.335 Weight 86.3 kg Intake: IV 407 276 Lactated Ringers 1,000 ml 320 240 @ 20 mls/hr IV .Q24H [facility] Rx#:[id number] Pressure bags 87 36 Intake, IV Titration 270 98.335 Amount Amiodarone 450 mg In 250 98.335 Dextrose 5% in Water 250 ml @ 0.5 MG/MIN 16.667 mls/hr IV .Q15H PRN Rx#: [id number] Lactated Ringers 1,000 ml 20 @ 20 mls/hr IV .Q24H [facility] Rx#:[id number] Oral 644 250 Output: Chest Tube Drainage 50 Chest Tube Left Lateral 40 Chest Chest Tube Mediastinal 10 Urine 112 100 Other: Voiding Method Indwelling Catheter # Voids 0 1 ABP, PAP, CO, CI - Last Documented Arterial Blood Pressure 123/37 Pulmonary Artery Pressure 16/4 Cardiac Output 4.8 Cardiac Index 2.5 - Exam CONSTITUTIONAL: Appears comfortable, cooperative, no acute distress RESPIRATORY: Lungs sounds diminished bilaterally. Respirations even, nonlabored. Currently on 2 L nasal cannula with oxygen saturation 98%. Able to achieve 1000 mL on incentive spirometry. Strong cough. CARDIOVASCULAR: S1, S2 present. Regular rate and rhythm, sinus rhythm on telemetry. Sternum stable. Palpable peripheral pulses bilaterally. No edema present. No calf pain or tenderness noted. Heart hugger in place with patient demonstrating appropriate use. Antiembolism stockings, SCDs present. GASTROINTESTINAL: Abdomen soft, nontender, nondistended. Active bowel sounds present 4 quadrants. Tolerating diet. Positive belching and flatus GENITOURINARY: Blas discontinued yesterday, only had 100 mL urine output overnight. INTEGUMENTARY: Skin is warm and dry with evidence of good perfusion. Anterior chest incision well approximated and covered with dry intact dressing. Right lower extremity EVH site well approximated without redness or drainage. NEUROLOGIC: Cranial nerves II through XII intact MUSKULOSKELETAL: Able to move all extremities, strength equal bilaterally, gait normal PSYCHIATRIC: Alert and oriented to person place and time, appropriate affect, intact judgment and insight INVASIVE LINES AND TUBES: A/V epicardial pacemaker wires present, grounded. Right radial arterial line present. - Allied health notes Allied health notes reviewed: nursing - Labs CBC & Chem 7: 05/14/22 04:30 05/14/22 04:30 Labs: Abnormal Lab Results - Last 24 Hours (Table) 05/13/22 05/13/22 05/13/22 Range/Units 11:10 17:31 21:19 RBC (4.30-5.90) m/uL Hgb (13.0-17.5) gm/dL Hct (39.0-53.0) % Plt Count (150-450) k/uL Lymphocytes # (1.0-4.8) k/uL Sodium (137-145) mmol/L Chloride (98-107) mmol/L BUN (9-20) mg/dL Creatinine (0.66-1.25) mg/dL Glucose (74-99) mg/dL POC Glucose (mg/dL) 138 H 208 H 148 H (70-110) mg/dL Calcium (8.4-10.2) mg/dL Total Protein (6.3-8.2) g/dL Albumin (3.5-5.0) g/dL 05/14/22 05/14/22 05/14/22 Range/Units 04:30 04:30 06:49 RBC 2.64 L (4.30-5.90) m/uL Hgb 8.6 L (13.0-17.5) gm/dL Hct 25.5 L (39.0-53.0) % Plt Count 73 L (150-450) k/uL Lymphocytes # 0.9 L (1.0-4.8) k/uL Sodium 125 L (137-145) mmol/L Chloride 96 L (98-107) mmol/L BUN 44 H (9-20) mg/dL Creatinine 2.83 H (0.66-1.25) mg/dL Glucose 135 H (74-99) mg/dL POC Glucose (mg/dL) 147 H (70-110) mg/dL Calcium 7.8 L (8.4-10.2) mg/dL Total Protein 5.0 L (6.3-8.2) g/dL Albumin 3.0 L (3.5-5.0) g/dL - Imaging and Cardiology Chest x-ray: report reviewed, image reviewed Assessment and Plan Assessment: 1. Triple-vessel coronary artery disease with unstable angina, status post three-vessel CABG 2. Hyperlipidemia, treated, cholesterol 171, LDL 94.5 3. BPH, on Flomax outpatient 4. Obstructive sleep apnea without home CPAP use 5. Covid in June 2021 6. Skin cancer status post removal 7. Lifelong non-smoker 8. Family history of premature coronary artery disease 9. Postoperative acute blood loss anemia and thrombocytopenia, expected 10. Atrial fibrillation, controlled 11. YANDEL Plan: 1. Continue aspirin, statin, Plavix, beta nicolas therapy. Will increase beta nicolas therapy as tolerated. 2. Continue amiodarone for A. fib prophylaxis. No anticoagulation necessary 3. Wean O2 as tolerated. Encourage incentive spirometry is 10 times every hour while awake. Bronchodilators per pulmonology 4. Increase activity as tolerated. PT/OT/cardiac rehab consulted 5. Will monitor daily labs and x-rays. Electrolyte replacement per protocol. Will give IV lasix BID and start renal dose dopamine 6. GI/DVT prophylaxis 7. Pain control with current medication regimen 8. Insulin management per primary care service. Patient is not diabetic, preoperative hemoglobin A1c 5.5% 9. Discontinue arterial line 10. May bladder scan and straight cath for greater than 300 mL residual. Continue Flomax 11. Strict accurate intake and output. Daily weights 12. More recommendations to follow as appropriate
[2022-05-14] MEDS ORDERED: DEXTROSE/WATER 1 250ML.BAG with DOPamine DRIP 800 MG IV SCH (10:45)
[2022-05-14 11:38] LABS: Glucose,Whole Blood 138 mg/dL (70-110)
[2022-05-14] MEDS: FUROSEMIDE 10 MG/ML 2 ML VIAL IV SCH ×2 (11:41→20:29)
[2022-05-14 18:49] LABS: Glucose,Whole Blood 160 mg/dL (70-110)
--- NOTE | 2022-05-14 19:07 | PN ---
PROGRESS NOTE DATE OF SERVICE: 05/15/2022 This 77-year-old gentleman admitted after CAD, CABG had diminished urine output. The patient's creatinine is elevated. The patient was started on dopamine drip. No chest pain. No palpitation. PHYSICAL EXAMINATION: Pulse is 64, blood pressure 87/45, respirations 18. HEENT: Conjunctivae normal. NECK: No jugular venous distention. CARDIOVASCULAR: S1, S2 muffled. RESPIRATION: Breath sounds diminished at the bases. A few scattered rhonchi. ABDOMEN: Soft. NERVOUS SYSTEM: No focal deficit. LABS: Creatinine 2.83. ASSESSMENT: 1. Coronary artery disease, status post coronary artery bypass grafting. 2. Acute renal failure. 3. Elevated blood sugars. 4. Hyperlipidemia. 5. Degenerative joint disease. 6. History of prostate disorder. 7. History of sleep apnea. RECOMMENDATIONS AND DISCUSSION: I recommend to continue current medications, continue with the monitoring, symptomatic treatment. Continue with dopamine. Monitor creatinine closely. Avoid nephrotoxic medications. Further recommendations to follow. MMODL / IJN: [id number] /
--- NOTE | 2022-05-14 19:15 | PN ---
PROGRESS NOTE DATE OF SERVICE: 05/13/2022 This 77-year-old gentleman, admitted after CAD, CABG is improving significantly. No chest pain. No palpitations. No fever. On exam, vitals are noted. HEENT: Conjunctivae normal. NECK: No jugular venous distention. CARDIOVASCULAR: S1, S2 muffled. RESPIRATION: Breath sounds diminished at the bases. A few scattered rhonchi and crackles. ABDOMEN: Soft. NERVOUS SYSTEM: No focal deficit. Labs are noted. ASSESSMENT: 1. Coronary artery disease, status post coronary artery bypass grafting. 2. Elevated blood sugars. 3. Hyperlipidemia. 4. Degenerative joint disease. RECOMMENDATIONS AND DISCUSSION: I recommend to continue current medications, continue with the monitoring, symptomatic treatment. Continue with Accu-Cheks before meals and at bedtime and insulin coverage. Further recommendations to follow. DOLLY / ADALBERTO: [id number] /
[2022-05-14] MEDS: DEXTROSE 5% IN WATER 100 ML with AMIODARONE 150 MG IV PRN (19:53)
[2022-05-14 20:20] LABS: Glucose,Whole Blood 173 mg/dL (70-110)
[2022-05-14] MEDS: SENNOSIDES-DOCUSATE SODIUM 1 EACH TAB PO SCH (20:29)
[2022-05-14] MEDS: TAMSULOSIN 0.4 MG CAP.ER.24H PO SCH (20:29)
[2022-05-15] MEDS: BENZOCAINE/MENTHOL LOZENG 1 EACH LOZENGE MUCOUS MEM PRN (02:02)
[2022-05-15 06:22] LABS: HCT 24.7 % (39.0-53.0); HGB 8.5 gm/dL (13.0-17.5); MCHC 34.5 g/dL (31.0-37.0); MCV 95.5 fL (80.0-100.0); RBC 2.58 m/uL (4.30-5.90); RDW 12.6 % (11.5-15.5); WBC 7.3 k/uL (3.8-10.6)
[2022-05-15 06:34] LABS: Calcium 7.8 mg/dL (8.4-10.2); Magnesium 2.5 mg/dL (1.6-2.3); Potassium 4.3 mmol/L (3.5-5.1)
[2022-05-15 06:42] LABS: Glucose,Whole Blood 138 mg/dL (70-110)
[2022-05-15 06:51] LABS: Platelet Count 117 k/uL (150-450)
[2022-05-15] MEDS: IPRATROPIUM-ALBUTEROL 3 ML NEB INHALATION SCH ×4 (07:08→19:45)
[2022-05-15] MEDS: PANTOPRAZOLE 40 MG TABLET PO SCH (07:15)
[2022-05-15] MEDS: INSULIN ASPART (NovoLOG) 100 UNIT/ML VIAL SQ SCH ×4 (07:16→21:51)
--- NOTE | 2022-05-15 07:20 | XR ---
EXAMINATION TYPE: XR chest 1V portable DATE OF EXAM: 05/15/2022 HISTORY: post cardiac surgery COMPARISON: 05/14/2022 TECHNIQUE: Single view of the chest is submitted. FINDINGS: Left atrial appendage clip is noted. Sternotomy wires are in place. Post operative changes of CABG. No sizeable pneumothorax. Basilar atelectasis and/or infiltrates with small effusions. Persistent cardiomegaly. Pulmonary venou s congestion is improved. IMPRESSION: 1. Basilar atelectasis and/or infiltrates with small effusions. Persistent cardiomegaly. Pulmonary v enous congestion is improved.
[2022-05-15] MEDS: AMIODARONE 200 MG TAB PO SCH ×2 (08:22→20:12)
[2022-05-15] MEDS: ASPIRIN 325 MG TAB PO SCH (08:22)
[2022-05-15] MEDS: ATORVASTATIN 40 MG TAB PO SCH (08:22)
[2022-05-15] MEDS: METOPROLOL TARTRATE 25 MG TAB PO SCH ×2 (08:22→20:12)
[2022-05-15] MEDS: HEPARIN SODIUM,PORCINE/PF 5,000 UNIT/0.5 ML SYRINGE SQ SCH ×3 (08:22→23:23)
[2022-05-15] MEDS: CLOPIDOGREL 75 MG TAB PO SCH (08:22)
--- NOTE | 2022-05-15 08:35 | P.PN ---
Subjective Progress Note Date: 05/15/22 Principal diagnosis: Status post open heart This is a 77-year-old gentleman with coronary artery disease as well as hypertension and dyslipidemia who underwent coronary artery bypass grafting electively few days ago. The patient was seen this morning. He has been in and out of atrial fibrillation. Currently he is on amiodarone. Beside that the patient was started on dopamine drip by the cardiothoracic team because of the renal failure. His creatinine this morning continues to be at 2.99. He is on dual antiplatelet therapy along with high intensity statin along with beta nicolas. Currently he is in A. fib with overall controlled heart rate. Objective - Vital Signs Vital signs: Vital Signs Temp 98.6 F 05/15/22 00:00 Pulse 102 H 05/15/22 07:23 Resp 21 05/15/22 07:23 BP 114/58 05/15/22 07:00 Pulse Ox 98 05/15/22 07:00 FiO2 3 05/12/22 00:00 Intake & Output 05/14/22 05/15/22 05/15/22 18:59 06:59 18:59 Intake Total 422 500 Output Total 525 1625 100 Balance -103 -1125 -100 Weight 85.8 kg Intake: IV 500 Amiodarone 450 mg In 500 Dextrose 5% in Water 250 ml @ 0.5 MG/MIN 16.667 mls/hr IV .Q15H [facility] Rx#: [id number] Oral 422 Output: Urine 525 1625 100 Other: Voiding Method Urinal Urinal # Voids 0 ABP, PAP, CO, CI - Last Documented Arterial Blood Pressure 119/33 Pulmonary Artery Pressure 16/4 Cardiac Output 4.8 Cardiac Index 2.5 - Constitutional General appearance: Present: no acute distress - Respiratory Respiratory: bilateral: diminished - Cardiovascular Rhythm: irregularly irregular - Labs CBC & Chem 7: 05/15/22 05:42 05/15/22 05:42 Labs: Abnormal Lab Results - Last 24 Hours (Table) 05/14/22 05/14/22 05/14/22 Range/Units 11:26 18:45 20:17 RBC (4.30-5.90) m/uL Hgb (13.0-17.5) gm/dL Hct (39.0-53.0) % Plt Count (150-450) k/uL Sodium (137-145) mmol/L Chloride (98-107) mmol/L BUN (9-20) mg/dL Creatinine (0.66-1.25) mg/dL Glucose (74-99) mg/dL POC Glucose (mg/dL) 138 H 160 H 173 H (70-110) mg/dL Calcium (8.4-10.2) mg/dL Magnesium (1.6-2.3) mg/dL 05/15/22 05/15/22 05/15/22 Range/Units 05:42 05:42 06:41 RBC 2.58 L (4.30-5.90) m/uL Hgb 8.5 L (13.0-17.5) gm/dL Hct 24.7 L (39.0-53.0) % Plt Count 117 L D (150-450) k/uL Sodium 127 L (137-145) mmol/L Chloride 93 L (98-107) mmol/L BUN 53 H (9-20) mg/dL Creatinine 2.99 H (0.66-1.25) mg/dL Glucose 126 H (74-99) mg/dL POC Glucose (mg/dL) 138 H (70-110) mg/dL Calcium 7.8 L (8.4-10.2) mg/dL Magnesium 2.5 H (1.6-2.3) mg/dL Assessment and Plan Assessment: Assessment #1 severe triple-vessel CAD and status post CABG as described above #2 paroxysmal atrial fibrillation #3 hypertension #4 dyslipidemia #5 preserved left ventricular systolic function Plan #1 right wean the patient from dopamine drip #2 I will advise consult nephrology #3 continue beta nicolas as well as amiodarone #4 continue dual antiplatelet therapy #5 consider starting the patient on oral anticoagulation down the line if the A. fib lost more than 24-48 hours #6 follow-up with the patient
--- NOTE | 2022-05-15 09:27 | P.PN ---
Subjective Progress Note Date: 05/15/22 Principal diagnosis: Triple-vessel coronary artery disease with unstable angina. Previous medical history of hyperlipidemia, BPH, obstructive sleep apnea without home CPAP use, covid in June 2021, skin cancer status post removal, lifelong non-smoker, and family history of premature coronary artery disease POD #4 coronary bypass grafting 3 with a left internal mammary artery to the left anterior descending artery, reverse saphenous vein graft off the aorta to the first obtuse marginal artery and the second obtuse marginal artery with right lower extremity greater saphenous vein endoscopic harvesting, clip ligation of the left atrial appendage with a 35 mm AtriClip and intraoperative transesophageal echocardiogram Postoperative acute blood loss anemia and thrombocytopenia, expected given hemodilution and cardiopulmonary bypass pump Paroxysmal atrial fibrillation, known common occurrence after open heart surgery Acute kidney injury, likely secondary to hypoperfusion The patient was seen and examined this morning sitting up in a recliner in the intensive care unit in no acute distress. Currently in atrial fibrillation but hemodynamically stable. He does admit to postsurgical chest pain, denies shortness of breath. Oxygenating well on 2 L nasal cannula although needs improvement with his incentive spirometry use. He has ambulated in the hallway with assistance without difficulty. Kidney function is a bit worse, however clinically patient looks better every day. Patient was started on renal dose dopamine yesterday as well as IV Lasix. No other new concerns. Objective - Vital Signs Vital signs: Vital Signs Temp 98.6 F 05/15/22 00:00 Pulse 102 H 05/15/22 07:23 Resp 21 05/15/22 07:23 BP 114/58 05/15/22 07:00 Pulse Ox 98 05/15/22 07:00 FiO2 3 05/12/22 00:00 Intake & Output 05/14/22 05/15/22 05/15/22 18:59 06:59 18:59 Intake Total 422 500 Output Total 525 1625 100 Balance -103 -1125 -100 Weight 85.8 kg Intake: IV 500 Amiodarone 450 mg In 500 Dextrose 5% in Water 250 ml @ 0.5 MG/MIN 16.667 mls/hr IV .Q15H PRN Rx#: [id number] Oral 422 Output: Urine 525 1625 100 Other: Voiding Method Urinal Urinal # Voids 0 ABP, PAP, CO, CI - Last Documented Arterial Blood Pressure 119/33 Pulmonary Artery Pressure 16/4 Cardiac Output 4.8 Cardiac Index 2.5 - Exam CONSTITUTIONAL: Appears comfortable, cooperative, no acute distress RESPIRATORY: Lungs sounds diminished bilaterally. Respirations even, nonlabored. Currently on 2 L nasal cannula with oxygen saturation 95%. Able to achieve 1000 mL on incentive spirometry. Strong cough. CARDIOVASCULAR: S1, S2 present. Irregular rate and rhythm, atrial fibrillation on telemetry. Sternum stable. Palpable peripheral pulses bilaterally. No edema present. No calf pain or tenderness noted. Heart hugger in place with patient demonstrating appropriate use. Antiembolism stockings, SCDs present. GASTROINTESTINAL: Abdomen soft, nontender, nondistended. Active bowel sounds present 4 quadrants. Tolerating diet. Positive belching and flatus GENITOURINARY: Continues to void, 2050 mL the last 24 hours INTEGUMENTARY: Skin is warm and dry with evidence of good perfusion. Anterior chest incision well approximated and covered with dry intact dressing. Right lower extremity EVH site well approximated without redness or drainage. NEUROLOGIC: Cranial nerves II through XII intact MUSKULOSKELETAL: Able to move all extremities, strength equal bilaterally, gait normal PSYCHIATRIC: Alert and oriented to person place and time, appropriate affect, intact judgment and insight INVASIVE LINES AND TUBES: A/V epicardial pacemaker wires present, grounded. - Allied health notes Allied health notes reviewed: nursing - Labs CBC & Chem 7: 05/15/22 05:42 05/15/22 05:42 Labs: Abnormal Lab Results - Last 24 Hours (Table) 05/14/22 05/14/22 05/14/22 Range/Units 11:26 18:45 20:17 RBC (4.30-5.90) m/uL Hgb (13.0-17.5) gm/dL Hct (39.0-53.0) % Plt Count (150-450) k/uL Sodium (137-145) mmol/L Chloride (98-107) mmol/L BUN (9-20) mg/dL Creatinine (0.66-1.25) mg/dL Glucose (74-99) mg/dL POC Glucose (mg/dL) 138 H 160 H 173 H (70-110) mg/dL Calcium (8.4-10.2) mg/dL Magnesium (1.6-2.3) mg/dL 05/15/22 05/15/22 05/15/22 Range/Units 05:42 05:42 06:41 RBC 2.58 L (4.30-5.90) m/uL Hgb 8.5 L (13.0-17.5) gm/dL Hct 24.7 L (39.0-53.0) % Plt Count 117 L D (150-450) k/uL Sodium 127 L (137-145) mmol/L Chloride 93 L (98-107) mmol/L BUN 53 H (9-20) mg/dL Creatinine 2.99 H (0.66-1.25) mg/dL Glucose 126 H (74-99) mg/dL POC Glucose (mg/dL) 138 H (70-110) mg/dL Calcium 7.8 L (8.4-10.2) mg/dL Magnesium 2.5 H (1.6-2.3) mg/dL - Imaging and Cardiology Chest x-ray: report reviewed, image reviewed Assessment and Plan Assessment: 1. Triple-vessel coronary artery disease with unstable angina, status post three-vessel CABG 2. Hyperlipidemia, treated, cholesterol 171, LDL 94.5 3. BPH, on Flomax outpatient 4. Obstructive sleep apnea without home CPAP use 5. Covid in June 2021 6. Skin cancer status post removal 7. Lifelong non-smoker 8. Family history of premature coronary artery disease 9. Postoperative acute blood loss anemia and thrombocytopenia, expected 10. Paroxysmal atrial fibrillation 11. YANDEL Plan: 1. Continue aspirin, statin, Plavix, beta nicolas therapy. Will increase beta nicolas therapy as tolerated. 2. Continue amiodarone for A. fib prophylaxis. No anticoagulation necessary at this time 3. Wean O2 as tolerated. Encourage incentive spirometry is 10 times every hour while awake. Bronchodilators per pulmonology 4. Increase activity as tolerated. PT/OT/cardiac rehab consulted 5. Will monitor daily labs and x-rays. Electrolyte replacement per protocol. Will continue IV lasix, continue renal dose dopamine 6. GI/DVT prophylaxis 7. Pain control with current medication regimen 8. Insulin management per primary care service. Patient is not diabetic, preoperative hemoglobin A1c 5.5% 9. May bladder scan and straight cath for greater than 300 mL residual. Continue Flomax 10. Strict accurate intake and output. Daily weights 11. Will place transfer orders for 3 S. cardiac stepdown unit. May transfer when bed available 12. More recommendations to follow as appropriate
--- NOTE | 2022-05-15 10:18 | P.PN ---
Subjective Progress Note Date: 05/15/22 Principal diagnosis: Coronary artery disease status post coronary artery bypass grafting This is a 77-year-old male patient with a known history of hypertension, hyperlipidemia, BPH. Lifelong nonsmoker. He had presented here 04/09/2022 for an elective cardiac catheterization and was found to have triple-vessel coronary artery disease. Echocardiogram had revealed preserved left ventricular systolic function with ejection fraction 55-60%. No significant valvular abnormalities. He was recommended coronary artery bypass grafting. He was brought in today for the surgery and had undergone a PETERS to LAD, saphenous vein grafts to the OM1 and OM 2. He is seen now in the immediate postop period up in the in the intensive care unit. He is intubated on mechanical ventilator. Current settings are assist-control mode with a respiratory rate of 14, tidal volume 450, FiO2 100% and a PEEP of 5. Blood gases are pending. Labs are pending. Chest x-ray pending. He was initially on norepinephrine drip at 0.02 mcg/kg/m that is currently on hold. He is a nitroglycerin drip at 5 mcg/m. Propofol at 20 mcg/kg/m. Lactated Ringer's at 50 MLS per hour. He has a right [place]-Aline catheter in place. Cardiac output 4.2. Cardiac index 2.2. PA pressure 22/11. He has a left, mediastinal and right chest tubes in place. Right radial arterial line in place. He received 2 units of fresh frozen plasma and 1 unit of platelets thus far. Blood glucose 137. Progress note dated 05/12/2022. This is a 77-year-old male who is postop day #1, status post three-vessel bypass grafting. The patient's doing well. The patient is currently on 2 L nasal cannula. The patient's getting insulin drip at 0.5 units per hour. The patient's getting lactated Ringer's at 50 mL an hour, and nitroglycerin at 5 mcg/m. The patient had an uneventful night according to the nurses. The patie nt was extubated in routine fashion. White count 5.7, hemoglobin 9.7, hematocrit 28, platelet count 87,000. Chest x-ray shows postsurgical changes, bibasilar atelectasis, and bilateral chest tubes. Progress note dated 05/13/2022. This is a 77-year-old male who was seen in consultation at couple days ago. He is postop day #2, status post three-vessel bypass grafting. Currently, he's on 3 L nasal cannula. The patient did develop atrial fibrillation with RVR last night, and was placed on amiodarone 0.5 mg/m. The patient is also receiving lactated Ringer's at 30 mL an hour. Laboratory data are reviewed, with a white count of 7.6, hemoglobin 9.2, hematocrit 27.1, and platelet count 79,000. Sodium 128, potassium 4.5, chlorides 98, CO2 25, BUN 32, creatinine 2.09. Albumin 3.3. Chest x-ray shows postsurgical changes. Progress note dated 05/14/2022. This is a 77-year-old male seen in consultation couple days ago. He is postop day #3, that is close three-vessel bypass grafting. He remains on oxygen at 2 L. He's not receiving any IV fluids. Yesterday, he was on IV amiodarone b ecause of atrial fibrillation with RVR. He converted, and is now on oral amiodarone. White count 7.6, hemoglobin 8.6, hematocrit 25.5, and platelet count 73,000. Sodium 125, potassium 4.5, chlorides 96, CO2 25, BUN 44, and creatinine 2.83. Calcium 7.8, and albumin is 3. Chest x-ray shows some b ibasilar infiltrates, somewhat worse. The patient is seen today 05/15/2022 in follow-up in the intensive care unit. He is a selective care unit overflow. He is sitting up in chair at the bedside. Awake and alert in no acute distress. He remains on dopamine at 2 mcg/kg/m. He is currently in normal sinus rhythm. He remains on oral amiodarone. Chest x-ray reveals basilar atelectasis with small effusions. Persistent cardiomegaly. Pulmonary venous congestion is improved. He is maintaining good O2 saturations in the 90s on 2 L/m per nasal cannula. Normal saline at 20 ML's per hour. Working well with the incentive spirometer. He is status post 2 units of fresh frozen plasma one unit of platelets this admission. White count 7.3. Hemoglobin 8.5. Platelets 117. Sodium 127. Potassium 4.3. Chloride 93. BUN 53. Creatinine 2.99. Magnesium 2.5. He is currently in a -1.2 L balance. Remains on bronchodilators. Heparin for DVT prophylaxis. Objective - Vital Signs Vital signs: Vital Signs Temp 98.6 F 05/15/22 00:00 Pulse 102 H 05/15/22 07:23 Resp 21 05/15/22 07:23 BP 114/58 05/15/22 07:00 Pulse Ox 98 05/15/22 07:00 FiO2 3 05/12/22 00:00 Intake & Output 05/14/22 05/15/22 05/15/22 18:59 06:59 18:59 Intake Total 422 500 239.6 Output Total 525 1625 275 Balance -103 -1125 -35.4 Weight 85.8 kg Intake: IV 500 39.6 .9NS 30 Amiodarone 450 mg In 500 Dextrose 5% in Water 250 ml @ 0.5 MG/MIN 16.667 mls/hr IV .Q15H PRN Rx#: [id number] Dextrose/Water 1 250ml. 9.6 bag @ 2 MCG/KG/MIN 3.236 mls/hr IV .Q24H JOSSY with DOPamine DRIP 800 mg Rx#: [id number] Oral 422 200 Output: Urine 525 1625 275 Other: Voiding Method Urinal Urinal Urinal # Voids 0 ABP, PAP, CO, CI - Last Documented Arterial Blood Pressure 119/33 Pulmonary Artery Pressure 16/4 Cardiac Output 4.8 Cardiac Index 2.5 - Exam GENERAL EXAM: Alert, pleasant 77-year-old gentleman, up in a chair at the bedside, on 2 L nasal cannula, comfortable in no apparent distress. HEAD: Normocephalic. EYES: Normal reaction of pupils, equal size. NOSE: Clear with pink turbinates. THROAT: No erythema or exudates. NECK: No masses, no JVD. CHEST: No chest wall deformity. Sternum stable. Dressing dry and intact. Heart Hugger in place. LUNGS: Equal air entry with faint crackles in the posterior bases. CVS: S1 and S2 normal with no audible murmur, regular rhythm. ABDOMEN: No hepatosplenomegaly, normal bowel sounds, no guarding or rigidity. SPINE: No scoliosis or deformity SKIN: No rashes CENTRAL NERVOUS SYSTEM: No focal deficits, tone is normal in all 4 extremities. EXTREMITIES: There is no peripheral edema. No clubbing, no cyanosis. Peripheral pulses are intact. - Labs CBC & Chem 7: 05/15/22 05:42 05/15/22 05:42 Labs: Abnormal Lab Results - Last 24 Hours (Table) 05/14/22 05/14/22 05/14/22 Range/Units 11:26 18:45 20:17 RBC (4.30-5.90) m/uL Hgb (13.0-17.5) gm/dL Hct (39.0-53.0) % Plt Count (150-450) k/uL Sodium (137-145) mmol/L Chloride (98-107) mmol/L BUN (9-20) mg/dL Creatinine (0.66-1.25) mg/dL Glucose (74-99) mg/dL POC Glucose (mg/dL) 138 H 160 H 173 H (70-110) mg/dL Calcium (8.4-10.2) mg/dL Magnesium (1.6-2.3) mg/dL 05/15/22 05/15/22 05/15/22 Range/Units 05:42 05:42 06:41 RBC 2.58 L (4.30-5.90) m/uL Hgb 8.5 L (13.0-17.5) gm/dL Hct 24.7 L (39.0-53.0) % Plt Count 117 L D (150-450) k/uL Sodium 127 L (137-145) mmol/L Chloride 93 L (98-107) mmol/L BUN 53 H (9-20) mg/dL Creatinine 2.99 H (0.66-1.25) mg/dL Glucose 126 H (74-99) mg/dL POC Glucose (mg/dL) 138 H (70-110) mg/dL Calcium 7.8 L (8.4-10.2) mg/dL Magnesium 2.5 H (1.6-2.3) mg/dL Assessment and Plan Assessment: 1 Coronary artery disease status post coronary artery bypass grafting utilizing a PETERS to the LAD, saphenous vein grafts to the OM1 and of 12. Postoperative day #4 2 History of hypertension 3 History of hyperlipidemia 4 Lifelong nonsmoker. 5 Benign prostatic hyperplasia 6 Family history of coronary artery disease, his father passed at age 49 from myocardial infarction 7 Postoperative atrial fibrillation, an expected outcome of surgery, currently in sinus rhythm Plan: The patient was seen and evaluated Chest x-ray, medications and labs are pending Encourage increased use the incentive spirometer Titrate the FiO2 as tolerated Increase his activity as tolerated To be transferred to selective care unit We will continue to follow I have personally seen and examined the patient, performed the documentation and the assessment and plan as written. Number of minutes spent on the visit: 10.
[2022-05-15 11:10] LABS: Glucose,Whole Blood 154 mg/dL (70-110)
[2022-05-15] MEDS: MAGNESIUM HYDROXIDE 2,400 MG/10 ML CUP PO PRN (13:45)
[2022-05-15 17:30] LABS: Glucose,Whole Blood 159 mg/dL (70-110)
--- NOTE | 2022-05-15 19:23 | P.PN ---
Subjective Progress Note Date: 05/15/22 Principal diagnosis: Coronary artery disease status post coronary artery bypass grafting 77-year-old male patient with a known history of hypertension, hyperlipidemia, BPH; presented here 04/09/2022 for an elective cardiac catheterization and was found to have triple-vessel coronary artery disease. Echocardiogram had revealed preserved left ventricular systolic function with ejection fraction 55-60%. No significant valvular abnormalities. He was recommended coronary artery bypass grafting; undergone a PETERS to LAD, saphenous vein grafts to the OM1 and OM 2. 05/15/2022 Patient is seen and evaluated in follow-up in the intensive care unit, as selective care unit overflow. He is sitting up in chair at the bedside. Awake and alert in no acute distress. Remains on O2 at 2 L per nasal cannula with O2 saturation over 90% Patient remains on dopamine at 2 mcg/kg/m. He is currently in normal sinus rhythm. He remains on oral amiodarone. Chest x-ray reveals basilar atelectasis with small effusions. Persistent ca rdiomegaly. Pulmonary venous congestion is improved. He is status post 2 units of fresh frozen plasma one unit of platelets this admission. Blood work reveals White count 7.3. Hemoglobin 8.5. Platelets 117. Sodium 127. Potassium 4.3. Chloride 93. BUN 53. Creatinine 2.99. Magnesium 2.5. Remains on bronchodilators. Heparin for DVT prophylaxis. Titrate the FiO2 as tolerated; Increase his activity as tolerated To be transferred to selective care unit Objective - Vital Signs Vital signs: Vital Signs Temp 98.4 F 05/15/22 08:00 Pulse 66 05/15/22 11:28 Resp 11 L 05/15/22 11:28 BP 109/74 05/15/22 10:00 Pulse Ox 93 L 05/15/22 10:00 FiO2 3 05/12/22 00:00 Intake & Output 05/14/22 05/15/22 05/15/22 18:59 06:59 18:59 Intake Total 422 500 239.6 Output Total 525 1625 275 Balance -103 -1125 -35.4 Weight 85.8 kg Intake: IV 500 39.6 .9NS 30 Amiodarone 450 mg In 500 Dextrose 5% in Water 250 ml @ 0.5 MG/MIN 16.667 mls/hr IV .Q15H PRN Rx#: [id number] Dextrose/Water 1 250ml. 9.6 bag @ 2 MCG/KG/MIN 3.236 mls/hr IV .Q24H JOSSY with DOPamine DRIP 800 mg Rx#: [id number] Oral 422 200 Output: Urine 525 1625 275 Other: Voiding Method Urinal Urinal Urinal # Voids 0 ABP, PAP, CO, CI - Last Documented Arterial Blood Pressure 119/33 Pulmonary Artery Pressure 16/4 Cardiac Output 4.8 Cardiac Index 2.5 - Exam No acute distress, oriented 3. Currently on 2 L nasal cannula. HEENT examination is grossly unremarkable. Neck supple. Full range of motion. No adenopathy thyromegaly or neck vein distention. Cardiovascular examination reveals regular rhythm rate. S1-S2 normal. No S3 or S4. No discernible murmur noted. Heart rate 78 bpm. Lungs reveal mostly clear breath sounds. Scattered rhonchi are noted. No wheezes or crackles. Breath sounds equal bilaterally. Saturations are between 96 and 98%. Abdomen soft bowel sounds are heard. No masses or tenderness. Extremities are intact. No cyanosis clubbing or edema. Skin is without rash or lesion. - Labs CBC & Chem 7: 05/15/22 05:42 05/15/22 05:42 Labs: Abnormal Lab Results - Last 24 Hours (Table) 05/14/22 05/14/22 05/15/22 Range/Units 18:45 20:17 05:42 RBC 2.58 L (4.30-5.90) m/uL Hgb 8.5 L (13.0-17.5) gm/dL Hct 24.7 L (39.0-53.0) % Plt Count 117 L D (150-450) k/uL Sodium (137-145) mmol/L Chloride (98-107) mmol/L BUN (9-20) mg/dL Creatinine (0.66-1.25) mg/dL Glucose (74-99) mg/dL POC Glucose (mg/dL) 160 H 173 H (70-110) mg/dL Calcium (8.4-10.2) mg/dL Magnesium (1.6-2.3) mg/dL 05/15/22 05/15/22 05/15/22 Range/Units 05:42 06:41 11:09 RBC (4.30-5.90) m/uL Hgb (13.0-17.5) gm/dL Hct (39.0-53.0) % Plt Count (150-450) k/uL Sodium 127 L (137-145) mmol/L Chloride 93 L (98-107) mmol/L BUN 53 H (9-20) mg/dL Creatinine 2.99 H (0.66-1.25) mg/dL Glucose 126 H (74-99) mg/dL POC Glucose (mg/dL) 138 H 154 H (70-110) mg/dL Calcium 7.8 L (8.4-10.2) mg/dL Magnesium 2.5 H (1.6-2.3) mg/dL Assessment and Plan Assessment: 1. Triple-vessel coronary artery disease; patient is status post bypass grafting; patient is currently on aspirin, amiodarone 400 mg twice a day, Plavix 75 mg daily; Lopressor 25 mg twice a day 2. Acute renal injury likely related to hypoperfusion; patient has been placed on renal dose of dopamine as well as IV Lasix; BUN/creatinine elevated at 52/2.99 3. Acute blood loss anemia; postoperative; hemoglobin at 8.5 this morning; we will continue to monitor H&H closely 4. Hyperlipidemia; Lipitor 40 mg by mouth daily 5. History of BPH; Flomax 0.4 mg by mouth daily at bedtime DVT prophylaxis; SCDs/subcu heparin CODE STATUS; full code
[2022-05-15] MEDS: TAMSULOSIN 0.4 MG CAP.ER.24H PO SCH (20:12)
[2022-05-15] MEDS: SENNOSIDES-DOCUSATE SODIUM 1 EACH TAB PO SCH (20:12)
[2022-05-15 21:51] LABS: Glucose,Whole Blood 143 mg/dL (70-110)
[2022-05-16 06:11] LABS: Glucose,Whole Blood 128 mg/dL (70-110)
--- NOTE | 2022-05-16 07:14 | XR ---
EXAMINATION TYPE: XR chest 1V portable DATE OF EXAM: 05/16/2022 HISTORY: Postoperative cardiac surgery COMPARISON: 05/15/2022 TECHNIQUE: Single view of the chest is submitted. FINDINGS: Persistent basilar atelectasis and/or small effusions. Pulmonary venous congestion is unchanged. Atri al appendage clip noted. Post operative changes of CABG. No sizeable pneumothorax. The heart is mildly enlarged. IMPRESSION: 1. Stable appearance of the chest.
[2022-05-16] MEDS: IPRATROPIUM-ALBUTEROL 3 ML NEB INHALATION SCH ×4 (07:35→19:19)
[2022-05-16 08:35] LABS: Calcium 8.2 mg/dL (8.4-10.2); Potassium 4.3 mmol/L (3.5-5.1)
[2022-05-16 08:40] LABS: HGB 9.1 gm/dL (13.0-17.5); MCH 32.8 pg (25.0-35.0); MCHC 33.8 g/dL (31.0-37.0); MCV 96.9 fL (80.0-100.0); Mean Platelet Volume 9.3; Platelet Count 160 k/uL (150-450); RBC 2.79 m/uL (4.30-5.90); RDW 13.4 % (11.5-15.5); WBC 6.6 k/uL (3.8-10.6)
[2022-05-16] MEDS: ATORVASTATIN 40 MG TAB PO SCH (08:50)
[2022-05-16] MEDS: PANTOPRAZOLE 40 MG TABLET PO SCH (08:50)
[2022-05-16] MEDS: AMIODARONE 200 MG TAB PO SCH ×2 (08:50→20:35)
[2022-05-16] MEDS: CLOPIDOGREL 75 MG TAB PO SCH (08:50)
[2022-05-16] MEDS: METOPROLOL TARTRATE 25 MG TAB PO SCH ×2 (08:50→20:35)
[2022-05-16] MEDS: HEPARIN SODIUM,PORCINE/PF 5,000 UNIT/0.5 ML SYRINGE SQ SCH ×3 (08:50→22:56)
--- NOTE | 2022-05-16 09:18 | P.PN ---
Subjective Progress Note Date: 05/16/22 Principal diagnosis: Triple-vessel coronary artery disease with unstable angina. Previous medical history of hyperlipidemia, BPH, obstructive sleep apnea without home CPAP use, covid in June 2021, skin cancer status post removal, lifelong non-smoker, and family history of premature coronary artery disease POD #5 coronary bypass grafting 3 with a left internal mammary artery to the left anterior descending artery, reverse saphenous vein graft off the aorta to the first obtuse marginal artery and the second obtuse marginal artery with right lower extremity greater saphenous vein endoscopic harvesting, clip ligation of the left atrial appendage with a 35 mm AtriClip and intraoperative transesophageal echocardiogram Postoperative acute blood loss anemia and thrombocytopenia, expected given hemodilution and cardiopulmonary bypass pump Paroxysmal atrial fibrillation, known common occurrence after open heart surgery Acute kidney injury, likely secondary to hypoperfusion The patient was seen and examined this morning sitting up in a recliner on the cardiac stepdown unit in no acute distress. Was in sinus rhythm all night, after ambulating with PT this morning went back into afib, about to receive oral amio and lopressor. He does admit to postsurgical chest pain, denies shortness of breath. Oxygenating well on 2 L nasal cannula, achieving 1250 mL on his i ncentive spirometry. He has ambulated in the hallway with assistance without difficulty. Creatinine is better today at 2.63 from 2.99, urine output 1525 mL in the last 24 hours. Patient continues on renal dose dopamine, no lasix given yesterday. No other new concerns. Objective - Vital Signs Vital signs: Vital Signs Temp 97.5 F L 05/16/22 08:00 Pulse 107 H 05/16/22 08:00 Resp 24 05/16/22 08:00 BP 139/77 05/16/22 08:00 Pulse Ox 95 05/16/22 08:00 FiO2 3 05/12/22 00:00 Intake & Output 05/15/22 05/16/22 05/16/22 18:59 06:59 18:59 Intake Total 758.4 Output Total 925 600 Balance -166.6 -600 Weight 83.6 kg Intake: IV 158.4 .9NS 120 Dextrose/Water 1 250ml. 38.4 bag @ 2 MCG/KG/MIN 3.236 mls/hr IV .Q24H JOSSY with DOPamine DRIP 800 mg Rx#: [id number] Oral 600 Output: Urine 925 600 Other: Voiding Method Urinal Urinal Urinal ABP, PAP, CO, CI - Last Documented Arterial Blood Pressure 119/33 Pulmonary Artery Pressure 16/4 Cardiac Output 4.8 Cardiac Index 2.5 - Exam CONSTITUTIONAL: Appears comfortable, cooperative, no acute distress RESPIRATORY: Lungs sounds diminished bilaterally. Respirations even, nonlabored. Currently on 2 L nasal cannula with oxygen saturation 95%. Able to achieve 1250 mL on incentive spirometry. Strong cough. CARDIOVASCULAR: S1, S2 present. Irregular rate and rhythm, atrial fibrillation on telemetry. Sternum stable. Palpable peripheral pulses bilaterally. No edema present. No calf pain or tenderness noted. Heart hugger in place with patient demonstrating appropriate use. Antiembolism stockings, SCDs present. GASTROINTESTINAL: Abdomen soft, nontender, nondistended. Active bowel sounds present 4 quadrants. Tolerating diet. Positive bowel movement this morning GENITOURINARY: Continues to void, 1525 mL the last 24 hours INTEGUMENTARY: Skin is warm and dry with evidence of good perfusion. Anterior chest incision well approximated and covered with dry intact dressing. Right lower extremity EVH site well approximated without redness or drainage. NEUROLOGIC: Cranial nerves II through XII intact MUSKULOSKELETAL: Able to move all extremities, strength equal bilaterally, gait normal PSYCHIATRIC: Alert and oriented to person place and time, appropriate affect, intact judgment and insight INVASIVE LINES AND TUBES: A/V epicardial pacemaker wires present, grounded. - Allied health notes Allied health notes reviewed: nursing - Labs CBC & Chem 7: 05/16/22 07:52 05/16/22 07:52 Labs: Abnormal Lab Results - Last 24 Hours (Table) 05/15/22 05/15/22 05/15/22 Range/Units 11:09 17:18 21:50 RBC (4.30-5.90) m/uL Hgb (13.0-17.5) gm/dL Hct (39.0-53.0) % Sodium (137-145) mmol/L Chloride (98-107) mmol/L BUN (9-20) mg/dL Creatinine (0.66-1.25) mg/dL Glucose (74-99) mg/dL POC Glucose (mg/dL) 154 H 159 H 143 H (70-110) mg/dL Calcium (8.4-10.2) mg/dL 05/16/22 05/16/22 05/16/22 Range/Units 06:07 07:52 07:52 RBC 2.79 L (4.30-5.90) m/uL Hgb 9.1 L (13.0-17.5) gm/dL Hct 27.0 L (39.0-53.0) % Sodium 130 L (137-145) mmol/L Chloride 97 L (98-107) mmol/L BUN 54 H (9-20) mg/dL Creatinine 2.63 H (0.66-1.25) mg/dL Glucose 122 H (74-99) mg/dL POC Glucose (mg/dL) 128 H (70-110) mg/dL Calcium 8.2 L (8.4-10.2) mg/dL - Imaging and Cardiology Chest x-ray: report reviewed, image reviewed Assessment and Plan Assessment: 1. Triple-vessel coronary artery disease with unstable angina, status post three-vessel CABG 2. Hyperlipidemia, treated, cholesterol 171, LDL 94.5 3. BPH, on Flomax outpatient 4. Obstructive sleep apnea without home CPAP use 5. Covid in June 2021 6. Skin cancer status post removal 7. Lifelong non-smoker 8. Family history of premature coronary artery disease 9. Postoperative acute blood loss anemia and thrombocytopenia, expected 10. Paroxysmal atrial fibrillation 11. YANDEL Plan: 1. Continue aspirin, statin, Plavix, beta nicolas therapy. Will increase beta nicolas therapy as tolerated. 2. Continue amiodarone for A. fib prophylaxis. No anticoagulation necessary at this time 3. Wean O2 as tolerated. Encourage incentive spirometry is 10 times every hour while awake. Bronchodilators per pulmonology 4. Increase activity as tolerated. PT/OT/cardiac rehab consulted 5. Will monitor daily labs and x-rays. Electrolyte replacement per protocol. Likely will discontinue renal dose dopamine 6. GI/DVT prophylaxis 7. Pain control with current medication regimen 8. Insulin management per primary care service. Patient is not diabetic, preoperative hemoglobin A1c 5.5% 9. May bladder scan and straight cath for greater than 300 mL residual. Con tinue Flomax 10. Strict accurate intake and output. Daily weights 11. Discharge planning in place, anticipate discharge to home with home care soon 12. More recommendations to follow as appropriate
[2022-05-16 12:20] LABS: Glucose,Whole Blood 127 mg/dL (70-110)
[2022-05-16] MEDS: INSULIN ASPART (NovoLOG) 100 UNIT/ML VIAL SQ SCH ×4 (12:28→20:36)
[2022-05-16] MEDS: ASPIRIN 325 MG TAB PO SCH (12:30)
--- NOTE | 2022-05-16 13:12 | P.PN ---
Subjective Progress Note Date: 05/16/22 Principal diagnosis: Coronary artery disease status post coronary artery bypass grafting This is a 77-year-old male patient with a known history of hypertension, hyperlipidemia, BPH. Lifelong nonsmoker. He had presented here 04/09/2022 for an elective cardiac catheterization and was found to have triple-vessel coronary artery disease. Echocardiogram had revealed preserved left ventricular systolic function with ejection fraction 55-60%. No significant valvular abnormalities. He was recommended coronary artery bypass grafting. He was brought in today for the surgery and had undergone a PETERS to LAD, saphenous vein grafts to the OM1 and OM 2. He is seen now in the immediate postop period up in the in the intensive care unit. He is intubated on mechanical ventilator. Current settings are assist-control mode with a respiratory rate of 14, tidal volume 450, FiO2 100% and a PEEP of 5. Blood gases are pending. Labs are pending. Chest x-ray pending. He was initially on norepinephrine drip at 0.02 mcg/kg/m that is currently on hold. He is a nitroglycerin drip at 5 mcg/m. Propofol at 20 mcg/kg/m. Lactated Ringer's at 50 MLS per hour. He has a right Logsden-Laine catheter in place. Cardiac output 4.2. Cardiac index 2.2. PA pressure 22/11. He has a left, mediastinal and right chest tubes in place. Right radial arterial line in place. He received 2 units of fresh frozen plasma and 1 unit of platelets thus far. Blood glucose 137. Progress note dated 05/12/2022. This is a 77-year-old male who is postop day #1, status post three-vessel bypass grafting. The patient's doing well. The patient is currently on 2 L nasal cannula. The patient's getting insulin drip at 0.5 units per hour. The patient's getting lactated Ringer's at 50 mL an hour, and nitroglycerin at 5 mcg/m. The patient had an uneventful night according to the nurses. The patie nt was extubated in routine fashion. White count 5.7, hemoglobin 9.7, hematocrit 28, platelet count 87,000. Chest x-ray shows postsurgical changes, bibasilar atelectasis, and bilateral chest tubes. Progress note dated 05/13/2022. This is a 77-year-old male who was seen in consultation at couple days ago. He is postop day #2, status post three-vessel bypass grafting. Currently, he's on 3 L nasal cannula. The patient did develop atrial fibrillation with RVR last night, and was placed on amiodarone 0.5 mg/m. The patient is also receiving lactated Ringer's at 30 mL an hour. Laboratory data are reviewed, with a white count of 7.6, hemoglobin 9.2, hematocrit 27.1, and platelet count 79,000. Sodium 128, potassium 4.5, chlorides 98, CO2 25, BUN 32, creatinine 2.09. Albumin 3.3. Chest x-ray shows postsurgical changes. Progress note dated 05/14/2022. This is a 77-year-old male seen in consultation couple days ago. He is postop day #3, that is close three-vessel bypass grafting. He remains on oxygen at 2 L. He's not receiving any IV fluids. Yesterday, he was on IV amiodarone b ecause of atrial fibrillation with RVR. He converted, and is now on oral amiodarone. White count 7.6, hemoglobin 8.6, hematocrit 25.5, and platelet count 73,000. Sodium 125, potassium 4.5, chlorides 96, CO2 25, BUN 44, and creatinine 2.83. Calcium 7.8, and albumin is 3. Chest x-ray shows some b ibasilar infiltrates, somewhat worse. The patient is seen today 05/15/2022 in follow-up in the intensive care unit. He is a selective care unit overflow. He is sitting up in chair at the bedside. Awake and alert in no acute distress. He remains on dopamine at 2 mcg/kg/m. He is currently in normal sinus rhythm. He remains on oral amiodarone. Chest x-ray reveals basilar atelectasis with small effusions. Persistent cardiomegaly. Pulmonary venous congestion is improved. He is maintaining good O2 saturations in the 90s on 2 L/m per nasal cannula. Normal saline at 20 ML's per hour. Working well with the incentive spirometer. He is status post 2 units of fresh frozen plasma one unit of platelets this admission. White count 7.3. Hemoglobin 8.5. Platelets 117. Sodium 127. Potassium 4.3. Chloride 93. BUN 53. Creatinine 2.99. Magnesium 2.5. He is currently in a -1.2 L balance. Remains on bronchodilators. Heparin for DVT prophylaxis. The patient is seen today 05/16/2022 in follow-up on the selective care unit. He is currently sitting up in a chair at the bedside. Awake and alert in no acute distress. He was in sinus rhythm most of the evening. He went into atr ial fibrillation earlier this morning. He remains on beta blockers and amiodarone. He has also on dopamine at 2 mcg/kg/m. Tubes have been removed. He remains with an AV epicardial pacemaker wires that is crowded. Continues working well with the incentive spirometer. X-ray shows persistent basilar atelectasis/small effusions. Stable. He is status post 2 units of fresh frozen plasma one unit of platelets this admission. Count 6.7. Hemoglobin 9.1. Platelets 160,000. Sodium 1:30. Potassium 4.3. BUN 54. Creatinine 2.60. Glucose 122. He is continued on DuoNeb inhalations. Heparin for DVT prophylaxis. Objective - Vital Signs Vital signs: Vital Signs Temp 98 F 05/16/22 11:23 Pulse 72 05/16/22 12:05 Resp 24 05/16/22 11:23 BP 115/56 05/16/22 11:23 Pulse Ox 95 05/16/22 11:23 FiO2 3 05/12/22 00:00 Intake & Output 05/15/22 05/16/22 05/16/22 18:59 06:59 18:59 Intake Total 758.4 100 Output Total 925 600 300 Balance -166.6 -600 -200 Weight 83.6 kg Intake: IV 158.4 .9NS 120 Dextrose/Water 1 250ml. 38.4 bag @ 2 MCG/KG/MIN 3.236 mls/hr IV .Q24H JOSSY with DOPamine DRIP 800 mg Rx#: [id number] Oral 600 100 Output: Urine 925 600 300 Other: Voiding Method Urinal Urinal Urinal ABP, PAP, CO, CI - Last Documented Arterial Blood Pressure 119/33 Pulmonary Artery Pressure 16/4 Cardiac Output 4.8 Cardiac Index 2.5 - Exam GENERAL EXAM: Alert, 77-year-old gentleman, up in a chair at the bedside, on 2 L nasal cannula, comfortable in no apparent distress. HEAD: Normocephalic. EYES: Normal reaction of pupils, equal size. NOSE: Clear with pink turbinates. THROAT: No erythema or exudates. NECK: No masses, no JVD. CHEST: No chest wall deformity. Sternum stable. Dressing dry and intact. Heart Hugger in place. LUNGS: Equal air entry with faint crackles in the posterior bases. CVS: S1 and S2 normal with no audible murmur, regular rhythm. ABDOMEN: No hepatosplenomegaly, normal bowel sounds, no guarding or rigidity. SPINE: No scoliosis or deformity SKIN: No rashes CENTRAL NERVOUS SYSTEM: No focal deficits, tone is normal in all 4 extremities. EXTREMITIES: There is no peripheral edema. No clubbing, no cyanosis. Peripheral pulses are intact. - Labs CBC & Chem 7: 05/16/22 07:52 05/16/22 07:52 Labs: Abnormal Lab Results - Last 24 Hours (Table) 05/15/22 05/15/22 05/16/22 Range/Units 17:18 21:50 06:07 RBC (4.30-5.90) m/uL Hgb (13.0-17.5) gm/dL Hct (39.0-53.0) % Sodium (137-145) mmol/L Chloride (98-107) mmol/L BUN (9-20) mg/dL Creatinine (0.66-1.25) mg/dL Glucose (74-99) mg/dL POC Glucose (mg/dL) 159 H 143 H 128 H (70-110) mg/dL Calcium (8.4-10.2) mg/dL 05/16/22 05/16/22 05/16/22 Range/Units 07:52 07:52 12:16 RBC 2.79 L (4.30-5.90) m/uL Hgb 9.1 L (13.0-17.5) gm/dL Hct 27.0 L (39.0-53.0) % Sodium 130 L (137-145) mmol/L Chloride 97 L (98-107) mmol/L BUN 54 H (9-20) mg/dL Creatinine 2.63 H (0.66-1.25) mg/dL Glucose 122 H (74-99) mg/dL POC Glucose (mg/dL) 127 H (70-110) mg/dL Calcium 8.2 L (8.4-10.2) mg/dL Assessment and Plan Assessment: Coronary artery disease status post coronary artery bypass grafting utilizing a PETERS to the LAD, saphenous vein grafts to the OM1 and of 12. Postoperative day #5 History of hypertension History of hyperlipidemia Lifelong nonsmoker. Benign prostatic hyperplasia Family history of coronary artery disease, his father passed at age 49 from myocardial infarction Postoperative atrial fibrillation, an expected outcome of surgery, currently in sinus rhythm Plan: The patient was seen and evaluated Chest x-ray, medications and labs are pending Encourage increased use the incentive spirometer Titrate the FiO2 as tolerated Increase his activity as tolerated We will continue to follow I have personally seen and examined the patient, performed the documentation and the assessment and plan as written. Number of minutes spent on the visit: 10.
[2022-05-16 16:10] LABS: Glucose,Whole Blood 173 mg/dL (70-110)
--- NOTE | 2022-05-16 16:11 | P.PN ---
Subjective Progress Note Date: 05/16/22 This patient is admitted with a unstable angina and had a cardiac catheterization. Patient underwent a to carotid bypass surgery. Had prolonged course intensive care unit and transferred to telemetry today. He seemed to feeling slightly better, still looks frail and coughing and having some shortness of breath. His creatinine is in the range of 2.6 which is an improvement, having intermittent atrial fibrillation. Overall patient seemed to be progressing. Continue current medical therapy. Increase activity. Incentive spirometry Objective - Vital Signs Vital signs: Vital Signs Temp 98 F 05/16/22 11:23 Pulse 76 05/16/22 15:23 Resp 24 05/16/22 11:23 BP 115/56 05/16/22 11:23 Pulse Ox 94 L 05/16/22 15:12 FiO2 3 05/12/22 00:00 Intake & Output 05/15/22 05/16/22 05/16/22 18:59 06:59 18:59 Intake Total 758.4 100 Output Total 925 600 300 Balance -166.6 -600 -200 Weight 83.6 kg Intake: IV 158.4 .9NS 120 Dextrose/Water 1 250ml. 38.4 bag @ 2 MCG/KG/MIN 3.236 mls/hr IV .Q24H JOSSY with DOPamine DRIP 800 mg Rx#: [id number] Oral 600 100 Output: Urine 925 600 300 Other: Voiding Method Urinal Urinal Urinal ABP, PAP, CO, CI - Last Documented Arterial Blood Pressure 119/33 Pulmonary Artery Pressure 16/4 Cardiac Output 4.8 Cardiac Index 2.5 - Exam GENERAL EXAM: Patient is alert and appears frail and weak HEENT: Normocephalic. Normal reaction of pupils, equal size, normal range of extraocular motion. No erythema or exudates in the throat. NECK: No masses, no nuchal rigidity. CHEST: No chest wall deformity. LUNGS: Diminished air exchange HEART: S1 and S2 normal SKIN: No rashes CENTRAL NERVOUS SYSTEM: No focal deficits. EXTREMITIES: No cyanosis, clubbing or edema. - Labs CBC & Chem 7: 05/16/22 07:52 05/16/22 07:52 Labs: Abnormal Lab Results - Last 24 Hours (Table) 05/15/22 05/15/22 05/16/22 Range/Units 17:18 21:50 06:07 RBC (4.30-5.90) m/uL Hgb (13.0-17.5) gm/dL Hct (39.0-53.0) % Sodium (137-145) mmol/L Chloride (98-107) mmol/L BUN (9-20) mg/dL Creatinine (0.66-1.25) mg/dL Glucose (74-99) mg/dL POC Glucose (mg/dL) 159 H 143 H 128 H (70-110) mg/dL Calcium (8.4-10.2) mg/dL 05/16/22 05/16/22 05/16/22 Range/Units 07:52 07:52 12:16 RBC 2.79 L (4.30-5.90) m/uL Hgb 9.1 L (13.0-17.5) gm/dL Hct 27.0 L (39.0-53.0) % Sodium 130 L (137-145) mmol/L Chloride 97 L (98-107) mmol/L BUN 54 H (9-20) mg/dL Creatinine 2.63 H (0.66-1.25) mg/dL Glucose 122 H (74-99) mg/dL POC Glucose (mg/dL) 127 H (70-110) mg/dL Calcium 8.2 L (8.4-10.2) mg/dL Assessment and Plan (1) Acute renal failure Current Visit: Yes Status: Acute Code(s): N17.9 - ACUTE KIDNEY FAILURE, UNSPECIFIED SNOMED Code(s): 52750389 (2) CAD (coronary artery disease) Current Visit: Yes Status: Acute Code(s): I25.10 - ATHSCL HEART DISEASE OF [place] CORONARY ARTERY W/O ANG PCTRS SNOMED Code(s): 50292934 (3) Paroxysmal atrial fibrillation Current Visit: Yes Status: Acute Code(s): I48.0 - PAROXYSMAL ATRIAL FIBRILLATION SNOMED Code(s): 240360302 Plan: Continue current medical therapy. Increase activity as tolerated. Incentive spirometry
[2022-05-16] MEDS: BENZOCAINE/MENTHOL LOZENG 1 EACH LOZENGE MUCOUS MEM PRN (20:35)
[2022-05-16] MEDS: SENNOSIDES-DOCUSATE SODIUM 1 EACH TAB PO SCH (20:35)
[2022-05-16] MEDS: TAMSULOSIN 0.4 MG CAP.ER.24H PO SCH (20:35)
[2022-05-16 20:50] LABS: Glucose,Whole Blood 139 mg/dL (70-110)
--- NOTE | 2022-05-16 21:31 | P.PN ---
Subjective Progress Note Date: 05/16/22 Principal diagnosis: Coronary artery disease status post coronary artery bypass grafting 77-year-old male patient with a known history of hypertension, hyperlipidemia, BPH; presented here 04/09/2022 for an elective cardiac catheterization and was found to have triple-vessel coronary artery disease. Echocardiogram had revealed preserved left ventricular systolic function with ejection fraction 55-60%. No significant valvular abnormalities. He was recommended coronary artery bypass grafting; undergone a PETERS to LAD, saphenous vein grafts to the OM1 and OM 2. 05/15/2022 Patient is seen and evaluated in follow-up in the intensive care unit, as selective care unit overflow. He is sitting up in chair at the bedside. Awake and alert in no acute distress. Remains on O2 at 2 L per nasal cannula with O2 saturation over 90% Patient remains on dopamine at 2 mcg/kg/m. He is currently in normal sinus rhythm. He remains on oral amiodarone. Chest x-ray reveals basilar atelectasis with small effusions. Persistent ca rdiomegaly. Pulmonary venous congestion is improved. He is status post 2 units of fresh frozen plasma one unit of platelets this admission. Blood work reveals White count 7.3. Hemoglobin 8.5. Platelets 117. Sodium 127. Potassium 4.3. Chloride 93. BUN 53. Creatinine 2.99. Magnesium 2.5. Remains on bronchodilators. Heparin for DVT prophylaxis. Titrate the FiO2 as tolerated; Increase his activity as tolerated To be transferred to selective care unit 05/16/2022 Patient is seen sitting up in bedside chair; family at bedside; reports frequent coughing Vital signs are reviewed and remained stable; labs are reviewed and stable with WBC 6.6, hemoglobin Physical 160, sodium 133, BUN/creatinine 54/2.3 He remains on beta blockers and amiodarone. He has also on dopamine at 2 mcg/kg/m. Tubes have been removed. He remains with an AV epicardial pacemaker wires that is crowded. Continues working well with the incentive spirometer. X-ray shows persistent basilar atelectasis/small effusions. Stable. He is status post 2 units of fresh frozen plasma one unit of platelets this admission. Objective - Vital Signs Vital signs: Vital Signs Temp 98.1 F 05/16/22 16:00 Pulse 99 05/16/22 16:00 Resp 24 05/16/22 16:00 BP 128/58 05/16/22 16:00 Pulse Ox 95 05/16/22 16:00 FiO2 3 05/12/22 00:00 Intake & Output 05/15/22 05/16/22 05/16/22 18:59 06:59 18:59 Intake Total 758.4 100 Output Total 925 600 300 Balance -166.6 -600 -200 Weight 83.6 kg Intake: IV 158.4 .9NS 120 Dextrose/Water 1 250ml. 38.4 bag @ 2 MCG/KG/MIN 3.236 mls/hr IV .Q24H JOSSY with DOPamine DRIP 800 mg Rx#: [id number] Oral 600 100 Output: Urine 925 600 300 Other: Voiding Method Urinal Urinal Urinal ABP, PAP, CO, CI - Last Documented Arterial Blood Pressure 119/33 Pulmonary Artery Pressure 16/4 Cardiac Output 4.8 Cardiac Index 2.5 - Exam No acute distress, oriented 3. Currently on 2 L nasal cannula. HEENT examination is grossly unremarkable. Neck supple. Full range of motion. No adenopathy thyromegaly or neck vein distention. Cardiovascular examination reveals regular rhythm rate. S1-S2 normal. No S3 or S4. No discernible murmur noted. Heart rate 78 bpm. Lungs reveal mostly clear breath sounds. Scattered rhonchi are noted. No wheezes or crackles. Breath sounds equal bilaterally. Saturations are between 96 and 98%. Abdomen soft bowel sounds are heard. No masses or tenderness. Extremities are intact. No cyanosis clubbing or edema. Skin is without rash or lesion. - Labs CBC & Chem 7: 05/16/22 07:52 05/16/22 07:52 Labs: Abnormal Lab Results - Last 24 Hours (Table) 05/15/22 05/15/22 05/16/22 Range/Units 17:18 21:50 06:07 RBC (4.30-5.90) m/uL Hgb (13.0-17.5) gm/dL Hct (39.0-53.0) % Sodium (137-145) mmol/L Chloride (98-107) mmol/L BUN (9-20) mg/dL Creatinine (0.66-1.25) mg/dL Glucose (74-99) mg/dL POC Glucose (mg/dL) 159 H 143 H 128 H (70-110) mg/dL Calcium (8.4-10.2) mg/dL 05/16/22 05/16/22 05/16/22 Range/Units 07:52 07:52 12:16 RBC 2.79 L (4.30-5.90) m/uL Hgb 9.1 L (13.0-17.5) gm/dL Hct 27.0 L (39.0-53.0) % Sodium 130 L (137-145) mmol/L Chloride 97 L (98-107) mmol/L BUN 54 H (9-20) mg/dL Creatinine 2.63 H (0.66-1.25) mg/dL Glucose 122 H (74-99) mg/dL POC Glucose (mg/dL) 127 H (70-110) mg/dL Calcium 8.2 L (8.4-10.2) mg/dL 05/16/22 Range/Units 16:08 RBC (4.30-5.90) m/uL Hgb (13.0-17.5) gm/dL Hct (39.0-53.0) % Sodium (137-145) mmol/L Chloride (98-107) mmol/L BUN (9-20) mg/dL Creatinine (0.66-1.25) mg/dL Glucose (74-99) mg/dL POC Glucose (mg/dL) 173 H (70-110) mg/dL Calcium (8.4-10.2) mg/dL Assessment and Plan Assessment: 1. Triple-vessel coronary artery disease; patient is status post bypass grafting; patient is currently on aspirin, amiodarone 400 mg twice a day, Plavix 75 mg daily; Lopressor 25 mg twice a day 2. Acute renal injury likely related to hypoperfusion; patient has been placed on renal dose of dopamine as well as IV Lasix; BUN/creatinine elevated at 52/2.99 3. Acute blood loss anemia; postoperative; hemoglobin at 8.5 this morning; we will continue to monitor H&H closely 4. Hyperlipidemia; Lipitor 40 mg by mouth daily 5. History of BPH; Flomax 0.4 mg by mouth daily at bedtime DVT prophylaxis; SCDs/subcu heparin CODE STATUS; full code
[2022-05-17] MEDS: INSULIN ASPART (NovoLOG) 100 UNIT/ML VIAL SQ SCH ×4 (06:47→20:49)
[2022-05-17] MEDS: PANTOPRAZOLE 40 MG TABLET PO SCH (06:48)
[2022-05-17 06:58] LABS: Glucose,Whole Blood 130 mg/dL (70-110)
[2022-05-17 08:02] LABS: HCT 24.2 % (39.0-53.0); HGB 8.3 gm/dL (13.0-17.5); MCH 33.4 pg (25.0-35.0); MCHC 34.4 g/dL (31.0-37.0); MCV 97.3 fL (80.0-100.0); Mean Platelet Volume 8.7; Platelet Count 149 k/uL (150-450); RBC 2.48 m/uL (4.30-5.90); WBC 6.4 k/uL (3.8-10.6)
[2022-05-17 08:15] LABS: Potassium 4.3 mmol/L (3.5-5.1)
[2022-05-17] MEDS ORDERED: FUROSEMIDE 10 MG/ML 4 ML VIAL IV STA (08:26)
[2022-05-17] MEDS: AMIODARONE 200 MG TAB PO SCH ×2 (08:30→20:35)
[2022-05-17] MEDS: ATORVASTATIN 40 MG TAB PO SCH (08:30)
[2022-05-17] MEDS: HEPARIN SODIUM,PORCINE/PF 5,000 UNIT/0.5 ML SYRINGE SQ SCH ×3 (08:30→23:19)
[2022-05-17] MEDS: ASPIRIN 325 MG TAB PO SCH (08:30)
[2022-05-17] MEDS: METOPROLOL TARTRATE 25 MG TAB PO SCH ×4 (08:31→22:18)
[2022-05-17] MEDS: CLOPIDOGREL 75 MG TAB PO SCH (08:31)
--- NOTE | 2022-05-17 08:55 | XR ---
EXAMINATION TYPE: XR chest 2V DATE OF EXAM: 05/17/2022 COMPARISON: 05/16/2022 HISTORY: post cardiac surgery TECHNIQUE: Frontal and lateral views of the chest are obtained. FINDINGS: Pleural parenchymal opacities at the lung bases persist although there is improving aeration. Pulmona ry venous congestion without overt failure. Atrial appendage clip as well as sternotomy wires are in place. Heart size is stable. Mediastinal structures are stable and grossly unremarkable. No evidence for hilar prominence. Degenerative changes dorsal spine. IMPRESSION: 1. Pleural parenchymal opacities at the lung bases persist although there is improving aeration. Pulm onary venous congestion without overt failure.
--- NOTE | 2022-05-17 09:00 | P.PN ---
Subjective Progress Note Date: 05/17/22 Principal diagnosis: Triple-vessel coronary artery disease with unstable angina. Previous medical history of hyperlipidemia, BPH, obstructive sleep apnea without home CPAP use, covid in June 2021, skin cancer status post removal, lifelong non-smoker, and family history of premature coronary artery disease POD #6 coronary bypass grafting 3 with a left internal mammary artery to the left anterior descending artery, reverse saphenous vein graft off the aorta to the first obtuse marginal artery and the second obtuse marginal artery with right lower extremity greater saphenous vein endoscopic harvesting, clip ligation of the left atrial appendage with a 35 mm AtriClip and intraoperative transesophageal echocardiogram Postoperative acute blood loss anemia and thrombocytopenia, expected given hemodilution and cardiopulmonary bypass pump Paroxysmal atrial fibrillation, known common occurrence after open heart surgery Acute kidney injury, likely secondary to hypoperfusion The patient was seen and examined this morning sitting up in a recliner on the cardiac stepdown unit in no acute distress. Was in controlled atrial fibrillation this morning. He does admit to postsurgical chest pain but has not wanted to take any pain medication, denies shortness of breath, does complain of pain with coughing. Oxygenating in the low 90s on room air, achieving 750-1000 mL on his incentive spirometry. Needs a lot of encouragement to cough and deep breathe. He has ambulated in the hallway with assistance without difficulty. Creatinine is better today at 2.41 from 2.63, continues to void although not measured every time. Dopamine discontinued yesterday, no lasix given yesterday. No other new concerns. Objective - Vital Signs Vital signs: Vital Signs Temp 98.6 F 05/17/22 08:00 Pulse 106 H 05/17/22 08:00 Resp 20 05/17/22 08:00 BP 123/70 05/17/22 08:00 Pulse Ox 93 L 05/17/22 08:00 FiO2 3 05/12/22 00:00 Intake & Output 05/16/22 05/17/22 05/17/22 18:59 06:59 18:59 Intake Total 100 Output Total 300 Balance -200 Weight 83.6 kg 83.7 kg Intake: Oral 100 Output: Urine 300 Other: Voiding Method Urinal Urinal Urinal # Voids 1 ABP, PAP, CO, CI - Last Documented Arterial Blood Pressure 119/33 Pulmonary Artery Pressure 16/4 Cardiac Output 4.8 Cardiac Index 2.5 - Exam CONSTITUTIONAL: Appears comfortable, cooperative, no acute distress RESPIRATORY: Lungs sounds diminished bilaterally. Respirations even, nonlabored. Currently on room air with oxygen saturation 93%. Able to achieve 750-1000 mL on incentive spirometry. Weak cough. CARDIOVASCULAR: S1, S2 present. Irregular rate and rhythm, atrial fibrillation on telemetry. Sternum stable. Palpable peripheral pulses bilaterally. No edema present. No calf pain or tenderness noted. Heart hugger in place with patient demonstrating appropriate use. Antiembolism stockings, SCDs present. GASTROINTESTINAL: Abdomen soft, nontender, nondistended. Active bowel sounds present 4 quadrants. Tolerating diet. Positive bowel movement this morning GENITOURINARY: Continues to void INTEGUMENTARY: Skin is warm and dry with evidence of good perfusion. Anterior chest incision well approximated. Right lower extremity EVH site well approximated without redness or drainage. NEUROLOGIC: Cranial nerves II through XII intact MUSKULOSKELETAL: Able to move all extremities, strength equal bilaterally, gait normal PSYCHIATRIC: Alert and oriented to person place and time, appropriate affect, intact judgment and insight INVASIVE LINES AND TUBES: A/V epicardial pacemaker wires present, grounded. - Allied health notes Allied health notes reviewed: nursing - Labs CBC & Chem 7: 05/17/22 07:12 05/17/22 07:12 Labs: Abnormal Lab Results - Last 24 Hours (Table) 05/16/22 05/16/22 05/16/22 Range/Units 12:16 16:08 20:28 RBC (4.30-5.90) m/uL Hgb (13.0-17.5) gm/dL Hct (39.0-53.0) % Plt Count (150-450) k/uL Sodium (137-145) mmol/L BUN (9-20) mg/dL Creatinine (0.66-1.25) mg/dL Glucose (74-99) mg/dL POC Glucose (mg/dL) 127 H 173 H 139 H (70-110) mg/dL Calcium (8.4-10.2) mg/dL 05/17/22 05/17/22 05/17/22 Range/Units 06:40 07:12 07:12 RBC 2.48 L (4.30-5.90) m/uL Hgb 8.3 L (13.0-17.5) gm/dL Hct 24.2 L (39.0-53.0) % Plt Count 149 L (150-450) k/uL Sodium 130 L (137-145) mmol/L BUN 57 H (9-20) mg/dL Creatinine 2.41 H (0.66-1.25) mg/dL Glucose 117 H (74-99) mg/dL POC Glucose (mg/dL) 130 H (70-110) mg/dL Calcium 8.0 L (8.4-10.2) mg/dL - Imaging and Cardiology Chest x-ray: image reviewed Assessment and Plan Assessment: 1. Triple-vessel coronary artery disease with unstable angina, status post three-vessel CABG 2. Hyperlipidemia, treated, cholesterol 171, LDL 94.5 3. BPH, on Flomax outpatient 4. Obstructive sleep apnea without home CPAP use 5. Covid in June 2021 6. Skin cancer status post removal 7. Lifelong non-smoker 8. Family history of premature coronary artery disease 9. Postoperative acute blood loss anemia and thrombocytopenia, expected 10. Paroxysmal atrial fibrillation 11. YANDEL Plan: 1. Continue aspirin, statin, Plavix, beta nicolas therapy. Will increase beta nicolas therapy as tolerated, increased to 25 mg 3 times a day today. 2. Continue amiodarone for A. fib prophylaxis. No anticoagulation until 24 hours after pacemaker wires discontinued, patient will be started on Eliquis at discharge 3. Encourage incentive spirometry is 10 times every hour while awake. Bronchodilators per pulmonology 4. Increase activity as tolerated. PT/OT/cardiac rehab consulted 5. Will monitor daily labs and x-rays. Electrolyte replacement per protocol. Will give IV Lasix today 6. GI/DVT prophylaxis 7. Pain control with current medication regimen 8. Insulin management per primary care service. Patient is not diabetic, preoperative hemoglobin A1c 5.5% 9. Strict accurate intake and output. Daily weights 10. Discharge planning in place, anticipate discharge to home with home care soon 11. More recommendations to follow as appropriate
--- NOTE | 2022-05-17 09:43 | P.PN ---
Subjective Progress Note Date: 05/17/22 This patient is admitted with a unstable angina and had a cardiac catheterization. Patient underwent a to carotid bypass surgery. Had prolonged course intensive care unit and transferred to telemetry today. He seemed to feeling slightly better, still looks frail and coughing and having some shortness of breath. His creatinine is in the range of 2.6 which is an improvement, having intermittent atrial fibrillation. Overall patient seemed to be progressing. Continue current medical therapy. Increase activity. Incentive spirometry. 05/17/2022: This patient seemed to do relatively stable. Complaints of cough and cough related chest pain. Able to ambulate with assistance. Creatinine stable and symptom some improvement. He is off dopamine. Patient did not receive any Lasix yesterday. His hemoglobin 8.3. Creatinine is 2.41. Lungs show some diminished breath sounds at bases. Is on amiodarone for atrial fibrillation. Continue current medical therapy. Incentive spirometry. Possible discharge next week Objective - Vital Signs Vital signs: Vital Signs Temp 98.6 F 05/17/22 08:00 Pulse 106 H 05/17/22 08:00 Resp 20 05/17/22 08:00 BP 123/70 05/17/22 08:00 Pulse Ox 93 L 05/17/22 08:00 FiO2 3 05/12/22 00:00 Intake & Output 05/16/22 05/17/22 05/17/22 18:59 06:59 18:59 Intake Total 100 Output Total 300 Balance -200 Weight 83.6 kg 83.7 kg Intake: Oral 100 Output: Urine 300 Other: Voiding Method Urinal Urinal Urinal # Voids 1 ABP, PAP, CO, CI - Last Documented Arterial Blood Pressure 119/33 Pulmonary Artery Pressure 16/4 Cardiac Output 4.8 Cardiac Index 2.5 - Exam GENERAL EXAM: Patient is alert and appears frail and weak HEENT: Normocephalic. Normal reaction of pupils, equal size, normal range of extraocular motion. No erythema or exudates in the throat. NECK: No masses, no nuchal rigidity. CHEST: No chest wall deformity. LUNGS: Diminished air exchange HEART: S1 and S2 normal SKIN: No rashes CENTRAL NERVOUS SYSTEM: No focal deficits. EXTREMITIES: No cyanosis, clubbing or edema. - Labs CBC & Chem 7: 05/17/22 07:12 05/17/22 07:12 Labs: Abnormal Lab Results - Last 24 Hours (Table) 05/16/22 05/16/22 05/16/22 Range/Units 12:16 16:08 20:28 RBC (4.30-5.90) m/uL Hgb (13.0-17.5) gm/dL Hct (39.0-53.0) % Plt Count (150-450) k/uL Sodium (137-145) mmol/L BUN (9-20) mg/dL Creatinine (0.66-1.25) mg/dL Glucose (74-99) mg/dL POC Glucose (mg/dL) 127 H 173 H 139 H (70-110) mg/dL Calcium (8.4-10.2) mg/dL 05/17/22 05/17/22 05/17/22 Range/Units 06:40 07:12 07:12 RBC 2.48 L (4.30-5.90) m/uL Hgb 8.3 L (13.0-17.5) gm/dL Hct 24.2 L (39.0-53.0) % Plt Count 149 L (150-450) k/uL Sodium 130 L (137-145) mmol/L BUN 57 H (9-20) mg/dL Creatinine 2.41 H (0.66-1.25) mg/dL Glucose 117 H (74-99) mg/dL POC Glucose (mg/dL) 130 H (70-110) mg/dL Calcium 8.0 L (8.4-10.2) mg/dL Assessment and Plan (1) Acute renal failure Current Visit: Yes Status: Acute Code(s): N17.9 - ACUTE KIDNEY FAILURE, UNSPECIFIED SNOMED Code(s): 91611669 (2) CAD (coronary artery disease) Current Visit: Yes Status: Acute Code(s): I25.10 - ATHSCL HEART DISEASE OF [place] CORONARY ARTERY W/O ANG PCTRS SNOMED Code(s): 28380120 (3) Paroxysmal atrial fibrillation Current Visit: Yes Status: Acute Code(s): I48.0 - PAROXYSMAL ATRIAL FIBRILLATION SNOMED Code(s): 318719985 Plan: Seemed to be progressing steadily. Reactive and has shown improvement. Still bothered with cough and some chest pain. Continue with incentive spirometry. Increase activity
[2022-05-17] MEDS: IPRATROPIUM-ALBUTEROL 3 ML NEB INHALATION SCH ×4 (11:15→20:17)
--- NOTE | 2022-05-17 12:02 | P.PN ---
Subjective Progress Note Date: 05/17/22 Principal diagnosis: Coronary artery disease status post coronary artery bypass grafting This is a 77-year-old male patient with a known history of hypertension, hyperlipidemia, BPH. Lifelong nonsmoker. He had presented here 04/09/2022 for an elective cardiac catheterization and was found to have triple-vessel coronary artery disease. Echocardiogram had revealed preserved left ventricular systolic function with ejection fraction 55-60%. No significant valvular abnormalities. He was recommended coronary artery bypass grafting. He was brought in today for the surgery and had undergone a PETERS to LAD, saphenous vein grafts to the OM1 and OM 2. He is seen now in the immediate postop period up in the in the intensive care unit. He is intubated on mechanical ventilator. Current settings are assist-control mode with a respiratory rate of 14, tidal volume 450, FiO2 100% and a PEEP of 5. Blood gases are pending. Labs are pending. Chest x-ray pending. He was initially on norepinephrine drip at 0.02 mcg/kg/m that is currently on hold. He is a nitroglycerin drip at 5 mcg/m. Propofol at 20 mcg/kg/m. Lactated Ringer's at 50 MLS per hour. He has a right [place] catheter in place. Cardiac output 4.2. Cardiac index 2.2. PA pressure 22/11. He has a left, mediastinal and right chest tubes in place. Right radial arterial line in place. He received 2 units of fresh frozen plasma and 1 unit of platelets thus far. Blood glucose 137. Progress note dated 05/12/2022. This is a 77-year-old male who is postop day #1, status post three-vessel bypass grafting. The patient's doing well. The patient is currently on 2 L nasal cannula. The patient's getting insulin drip at 0.5 units per hour. The patient's getting lactated Ringer's at 50 mL an hour, and nitroglycerin at 5 mcg/m. The patient had an uneventful night according to the nurses. The patie nt was extubated in routine fashion. White count 5.7, hemoglobin 9.7, hematocrit 28, platelet count 87,000. Chest x-ray shows postsurgical changes, bibasilar atelectasis, and bilateral chest tubes. Progress note dated 05/13/2022. This is a 77-year-old male who was seen in consultation at couple days ago. He is postop day #2, status post three-vessel bypass grafting. Currently, he's on 3 L nasal cannula. The patient did develop atrial fibrillation with RVR last night, and was placed on amiodarone 0.5 mg/m. The patient is also receiving lactated Ringer's at 30 mL an hour. Laboratory data are reviewed, with a white count of 7.6, hemoglobin 9.2, hematocrit 27.1, and platelet count 79,000. Sodium 128, potassium 4.5, chlorides 98, CO2 25, BUN 32, creatinine 2.09. Albumin 3.3. Chest x-ray shows postsurgical changes. Progress note dated 05/14/2022. This is a 77-year-old male seen in consultation couple days ago. He is postop day #3, that is close three-vessel bypass grafting. He remains on oxygen at 2 L. He's not receiving any IV fluids. Yesterday, he was on IV amiodarone b ecause of atrial fibrillation with RVR. He converted, and is now on oral amiodarone. White count 7.6, hemoglobin 8.6, hematocrit 25.5, and platelet count 73,000. Sodium 125, potassium 4.5, chlorides 96, CO2 25, BUN 44, and creatinine 2.83. Calcium 7.8, and albumin is 3. Chest x-ray shows some b ibasilar infiltrates, somewhat worse. The patient is seen today 05/15/2022 in follow-up in the intensive care unit. He is a selective care unit overflow. He is sitting up in chair at the bedside. Awake and alert in no acute distress. He remains on dopamine at 2 mcg/kg/m. He is currently in normal sinus rhythm. He remains on oral amiodarone. Chest x-ray reveals basilar atelectasis with small effusions. Persistent cardiomegaly. Pulmonary venous congestion is improved. He is maintaining good O2 saturations in the 90s on 2 L/m per nasal cannula. Normal saline at 20 ML's per hour. Working well with the incentive spirometer. He is status post 2 units of fresh frozen plasma one unit of platelets this admission. White count 7.3. Hemoglobin 8.5. Platelets 117. Sodium 127. Potassium 4.3. Chloride 93. BUN 53. Creatinine 2.99. Magnesium 2.5. He is currently in a -1.2 L balance. Remains on bronchodilators. Heparin for DVT prophylaxis. The patient is seen today 05/16/2022 in follow-up on the selective care unit. He is currently sitting up in a chair at the bedside. Awake and alert in no acute distress. He was in sinus rhythm most of the evening. He went into atr ial fibrillation earlier this morning. He remains on beta blockers and amiodarone. He has also on dopamine at 2 mcg/kg/m. Tubes have been removed. He remains with an AV epicardial pacemaker wires that is crowded. Continues working well with the incentive spirometer. X-ray shows persistent basilar atelectasis/small effusions. Stable. He is status post 2 units of fresh frozen plasma one unit of platelets this admission. Count 6.7. Hemoglobin 9.1. Platelets 160,000. Sodium 1:30. Potassium 4.3. BUN 54. Creatinine 2.60. Glucose 122. He is continued on DuoNeb inhalations. Heparin for DVT prophylaxis. The patient is seen today April 2026 in follow-up on selective care unit. He is currently sitting up in a chair at the bedside. Awake and alert in no acute distress. He has a loose nonproductive cough. He is continuing to work well with the incentive spirometer. He is maintaining good O2 saturation 90s on room air. His x-ray continues to show pleuroparenchymal opacities in the lung bases persistent although there is improved aeration. Pulmonary venous congestion without overt failure. White count 6.4. Hemoglobin 8.3. Platelets 149. Sodium 1:30. Potassium 4.3. BUN 57. Creatinine 2.41. Glucose 117. He remains in a negative balance. He is continued on DuoNeb inhalations. Per for DVT prophylaxis. Continued on amiodarone and Lopressor. Currently in a regular rhythm. Objective - Vital Signs Vital signs: Vital Signs Temp 98.6 F 05/17/22 08:00 Pulse 74 05/17/22 11:16 Resp 20 05/17/22 08:00 BP 123/70 05/17/22 08:00 Pulse Ox 93 L 05/17/22 08:00 FiO2 3 05/12/22 00:00 Intake & Output 05/16/22 05/17/22 05/17/22 18:59 06:59 18:59 Intake Total 100 Output Total 300 751 Balance -200 -751 Weight 83.6 kg 83.7 kg Intake: Oral 100 Output: Urine 300 750 Urine/Stool Mix 1 Other: Voiding Method Urinal Urinal Urinal # Voids 1 ABP, PAP, CO, CI - Last Documented Arterial Blood Pressure 119/33 Pulmonary Artery Pressure 16/4 Cardiac Output 4.8 Cardiac Index 2.5 - Exam GENERAL EXAM: Alert, 77-year-old gentleman, up in a chair at the bedside, on manjinder m air, comfortable in no apparent distress. HEAD: Normocephalic. EYES: Normal reaction of pupils, equal size. NOSE: Clear with pink turbinates. THROAT: No erythema or exudates. NECK: No masses, no JVD. CHEST: No chest wall deformity. Sternum stable. Dressing dry and intact. Heart Hugger in place. LUNGS: Equal air entry with faint crackles in the posterior bases. CVS: S1 and S2 normal with no audible murmur, regular rhythm. ABDOMEN: No hepatosplenomegaly, normal bowel sounds, no guarding or rigidity. SPINE: No scoliosis or deformity SKIN: No rashes CENTRAL NERVOUS SYSTEM: No focal deficits, tone is normal in all 4 extremities. EXTREMITIES: There is no peripheral edema. No clubbing, no cyanosis. Peripheral pulses are intact. - Labs CBC & Chem 7: 05/17/22 07:12 05/17/22 07:12 Labs: Abnormal Lab Results - Last 24 Hours (Table) 05/16/22 05/16/22 05/16/22 Range/Units 12:16 16:08 20:28 RBC (4.30-5.90) m/uL Hgb (13.0-17.5) gm/dL Hct (39.0-53.0) % Plt Count (150-450) k/uL Sodium (137-145) mmol/L BUN (9-20) mg/dL Creatinine (0.66-1.25) mg/dL Glucose (74-99) mg/dL POC Glucose (mg/dL) 127 H 173 H 139 H (70-110) mg/dL Calcium (8.4-10.2) mg/dL 05/17/22 05/17/22 05/17/22 Range/Units 06:40 07:12 07:12 RBC 2.48 L (4.30-5.90) m/uL Hgb 8.3 L (13.0-17.5) gm/dL Hct 24.2 L (39.0-53.0) % Plt Count 149 L (150-450) k/uL Sodium 130 L (137-145) mmol/L BUN 57 H (9-20) mg/dL Creatinine 2.41 H (0.66-1.25) mg/dL Glucose 117 H (74-99) mg/dL POC Glucose (mg/dL) 130 H (70-110) mg/dL Calcium 8.0 L (8.4-10.2) mg/dL Assessment and Plan Assessment: Coronary artery disease status post coronary artery bypass grafting utilizing a PETERS to the LAD, saphenous vein grafts to the OM1 and of 12. Postoperative day #6 History of hypertension History of hyperlipidemia Lifelong nonsmoker. Benign prostatic hyperplasia Family history of coronary artery disease, his father passed at age 49 from myocardial infarction Postoperative atrial fibrillation, an expected outcome of surgery, currently in sinus rhythm Plan: The patient was seen and evaluated Chest x-ray, medications and labs reviewed Continued use of the incentive spirometer Doing well and on room air Home once cleared by CT services I have personally seen and examined the patient, performed the documentation and the assessment and plan as written. Number of minutes spent on the visit: 10.
[2022-05-17 12:05] LABS: Glucose,Whole Blood 159 mg/dL (70-110)
[2022-05-17 16:35] LABS: Glucose,Whole Blood 119 mg/dL (70-110)
--- NOTE | 2022-05-17 16:43 | P.PN ---
Subjective Progress Note Date: 05/17/22 Principal diagnosis: Coronary artery disease status post coronary artery bypass grafting 77-year-old male patient with a known history of hypertension, hyperlipidemia, BPH; presented here 04/09/2022 for an elective cardiac catheterization and was found to have triple-vessel coronary artery disease. Echocardiogram had revealed preserved left ventricular systolic function with ejection fraction 55-60%. No significant valvular abnormalities. He was recommended coronary artery bypass grafting; undergone a PETERS to LAD, saphenous vein grafts to the OM1 and OM 2. 05/15/2022 Patient is seen and evaluated in follow-up in the intensive care unit, as selective care unit overflow. He is sitting up in chair at the bedside. Awake and alert in no acute distress. Remains on O2 at 2 L per nasal cannula with O2 saturation over 90% Patient remains on dopamine at 2 mcg/kg/m. He is currently in normal sinus rhythm. He remains on oral amiodarone. Chest x-ray reveals basilar atelectasis with small effusions. Persistent ca rdiomegaly. Pulmonary venous congestion is improved. He is status post 2 units of fresh frozen plasma one unit of platelets this admission. Blood work reveals White count 7.3. Hemoglobin 8.5. Platelets 117. Sodium 127. Potassium 4.3. Chloride 93. BUN 53. Creatinine 2.99. Magnesium 2.5. Remains on bronchodilators. Heparin for DVT prophylaxis. Titrate the FiO2 as tolerated; Increase his activity as tolerated To be transferred to selective care unit 05/16/2022 Patient is seen sitting up in bedside chair; family at bedside; reports frequent coughing Vital signs are reviewed and remained stable; labs are reviewed and stable with WBC 6.6, hemoglobin Physical 160, sodium 133, BUN/creatinine 54/2.3 He remains on beta blockers and amiodarone. He has also on dopamine at 2 mcg/kg/m. Tubes have been removed. He remains with an AV epicardial pacemaker wires that is crowded. Continues working well with the incentive spirometer. X-ray shows persistent basilar atelectasis/small effusions. Stable. He is status post 2 units of fresh frozen plasma one unit of platelets this admission. 05/17/2022 Patient is seen and evaluated sitting up in bedside chair in selective care unit; continues to complain of cough; reports he is using incentive spirometer Vital signs are reviewed temperature 98.6, pulse 74, respiration 20 and blood pressure 123/70 with O2 saturation of 93% on 3 L Laboratory review shows sodium 1:30, potassium 4.3, BUN/creatinine of 57/41, WBC of 6.4, hemoglobin 8.3 with platelet count Patient remains on amiodarone and Lopressor for A. fib prophylaxis; Aspirin, statins and Plavix; beta blockers have been increased to 25 mg 3 times a day Patient encouraged to increase activity; has been evaluated by PT/OT and inpatient rehab as recommended Objective - Vital Signs Vital signs: Vital Signs Temp 98 F 05/17/22 15:23 Pulse 70 05/17/22 15:23 Resp 20 05/17/22 15:23 BP 114/58 05/17/22 15:23 Pulse Ox 94 L 05/17/22 15:23 FiO2 3 05/12/22 00:00 Intake & Output 05/16/22 05/17/22 05/17/22 18:59 06:59 18:59 Intake Total 100 120 Output Total 300 751 Balance -200 -631 Weight 83.6 kg 83.7 kg Intake: Oral 100 120 Output: Urine 300 750 Urine/Stool Mix 1 Other: Voiding Method Urinal Urinal Urinal # Voids 1 ABP, PAP, CO, CI - Last Documented Arterial Blood Pressure 119/33 Pulmonary Artery Pressure 16/4 Cardiac Output 4.8 Cardiac Index 2.5 - Exam No acute distress, oriented 3. Currently on 2 L nasal cannula. HEENT examination is grossly unremarkable. Neck supple. Full range of motion. No adenopathy thyromegaly or neck vein distention. Cardiovascular examination reveals regular rhythm rate. S1-S2 normal. No S3 or S4. No discernible murmur noted. Heart rate 78 bpm. Lungs reveal mostly clear breath sounds. Scattered rhonchi are noted. No wheezes or crackles. Breath sounds equal bilaterally. Saturations are between 96 and 98%. Abdomen soft bowel sounds are heard. No masses or tenderness. Extremities are intact. No cyanosis clubbing or edema. Skin is without rash or lesion. - Labs CBC & Chem 7: 05/17/22 07:12 05/17/22 07:12 Labs: Abnormal Lab Results - Last 24 Hours (Table) 05/16/22 05/17/22 05/17/22 Range/Units 20:28 06:40 07:12 RBC 2.48 L (4.30-5.90) m/uL Hgb 8.3 L (13.0-17.5) gm/dL Hct 24.2 L (39.0-53.0) % Plt Count 149 L (150-450) k/uL Sodium (137-145) mmol/L BUN (9-20) mg/dL Creatinine (0.66-1.25) mg/dL Glucose (74-99) mg/dL POC Glucose (mg/dL) 139 H 130 H (70-110) mg/dL Calcium (8.4-10.2) mg/dL 05/17/22 05/17/22 05/17/22 Range/Units 07:12 11:54 16:33 RBC (4.30-5.90) m/uL Hgb (13.0-17.5) gm/dL Hct (39.0-53.0) % Plt Count (150-450) k/uL Sodium 130 L (137-145) mmol/L BUN 57 H (9-20) mg/dL Creatinine 2.41 H (0.66-1.25) mg/dL Glucose 117 H (74-99) mg/dL POC Glucose (mg/dL) 159 H 119 H (70-110) mg/dL Calcium 8.0 L (8.4-10.2) mg/dL Assessment and Plan Assessment: 1. Triple-vessel coronary artery disease; patient is status post bypass grafting; patient is currently on aspirin, amiodarone 400 mg twice a day, Plavix 75 mg daily; Lopressor 25 mg twice a day 2. Acute renal injury likely related to hypoperfusion; patient has been placed on renal dose of dopamine as well as IV Lasix; BUN/creatinine elevated at 52/2.99 3. Acute blood loss anemia; postoperative; hemoglobin at 8.5 this morning; we will continue to monitor H&H closely 4. Hyperlipidemia; Lipitor 40 mg by mouth daily 5. History of BPH; Flomax 0.4 mg by mouth daily at bedtime DVT prophylaxis; SCDs/subcu heparin CODE STATUS; full code
[2022-05-17] MEDS: SENNOSIDES-DOCUSATE SODIUM 1 EACH TAB PO SCH (20:35)
[2022-05-17] MEDS: TAMSULOSIN 0.4 MG CAP.ER.24H PO SCH (20:35)
[2022-05-17 20:43] LABS: Glucose,Whole Blood 172 mg/dL (70-110)
[2022-05-17] MEDS: BENZOCAINE/MENTHOL LOZENG 1 EACH LOZENGE MUCOUS MEM PRN (22:20)
[2022-05-18 05:58] LABS: Glucose,Whole Blood 130 mg/dL (70-110)
[2022-05-18] MEDS: INSULIN ASPART (NovoLOG) 100 UNIT/ML VIAL SQ SCH ×2 (06:05→12:38)
[2022-05-18] MEDS: PANTOPRAZOLE 40 MG TABLET PO SCH (06:07)
[2022-05-18] MEDS ORDERED: SENNOSIDES-DOCUSATE SODIUM 1 EACH TAB PO PRN (07:48)
--- NOTE | 2022-05-18 07:55 | XR ---
EXAMINATION TYPE: XR chest 2V DATE OF EXAM: 05/18/2022 COMPARISON: 05/17/2022 INDICATION: Postop surgery TECHNIQUE: Frontal and lateral views of the chest are obtained. FINDINGS: The heart size is normal. The pulmonary vasculature is normal. There is a small left pleural effusion. Mild infiltrate is improving at the right base. IMPRESSION: 1. Small left pleural effusion, stable. 2. Improving right basilar infiltrate
[2022-05-18] MEDS: IPRATROPIUM-ALBUTEROL 3 ML NEB INHALATION SCH ×3 (08:16→15:29)
[2022-05-18 08:18] LABS: Calcium 8.2 mg/dL (8.4-10.2); Magnesium 2.6 mg/dL (1.6-2.3); Potassium 4.3 mmol/L (3.5-5.1)
--- NOTE | 2022-05-18 08:22 | P.PN ---
Subjective Progress Note Date: 05/18/22 Principal diagnosis: Triple-vessel coronary artery disease with unstable angina. Previous medical history of hyperlipidemia, BPH, obstructive sleep apnea without home CPAP use, covid in June 2021, skin cancer status post removal, lifelong non-smoker, and family history of premature coronary artery disease POD #7 coronary bypass grafting 3 with a left internal mammary artery to the left anterior descending artery, reverse saphenous vein graft off the aorta to the first obtuse marginal artery and the second obtuse marginal artery with right lower extremity greater saphenous vein endoscopic harvesting, clip ligation of the left atrial appendage with a 35 mm AtriClip and intraoperative transesophageal echocardiogram Postoperative acute blood loss anemia and thrombocytopenia, expected given hemodilution and cardiopulmonary bypass pump Paroxysmal atrial fibrillation, known common occurrence after open heart surgery Acute kidney injury, likely secondary to hypoperfusion The patient was seen and examined this morning sitting up in a recliner on the cardiac stepdown unit in no acute distress. Was in controlled atrial fibrillation this morning. States pain is controlled on current medication regimen, denies shortness of breath, does complain of pain with coughing. Oxygenating in the mid 90s on room air, achieving 1250 mL on his incentive spirometry. Needs a lot of encouragement to cough and deep breathe. He has ambulated in the hallway with assistance without difficulty and has showered. Patient wants to go home today. No other new concerns. Objective - Vital Signs Vital signs: Vital Signs Temp 98.4 F 05/17/22 23:30 Pulse 70 05/18/22 04:00 Resp 18 05/18/22 04:00 BP 125/68 05/18/22 04:00 Pulse Ox 94 L 05/18/22 04:00 FiO2 3 05/12/22 00:00 Intake & Output 05/17/22 05/18/22 05/18/22 18:59 06:59 18:59 Intake Total 120 Output Total 751 350 Balance -631 -350 Weight 83.7 kg 80 kg Intake: Oral 120 Output: Urine 750 350 Urine/Stool Mix 1 Other: Voiding Method Urinal Toilet Urinal # Bowel Movements 1 ABP, PAP, CO, CI - Last Documented Arterial Blood Pressure 119/33 Pulmonary Artery Pressure 16/4 Cardiac Output 4.8 Cardiac Index 2.5 - Exam CONSTITUTIONAL: Appears comfortable, cooperative, no acute distress RESPIRATORY: Lungs sounds diminished bilaterally, expiratory wheezes present. Respirations even, nonlabored. Currently on room air with oxygen saturation 94%. Able to achieve 1250 mL on incentive spirometry. Strong cough. CARDIOVASCULAR: S1, S2 present. Irregular rate and rhythm, atrial fibrillation on telemetry. Sternum stable. Palpable peripheral pulses bilaterally. No edema present. No calf pain or tenderness noted. Heart hugger in place with patient demonstrating appropriate use. Antiembolism stockings, SCDs present. GASTROINTESTINAL: Abdomen soft, nontender, nondistended. Active bowel sounds present 4 quadrants. Tolerating diet. Positive bowel movement GENITOURINARY: Continues to void, output 1100 mL last 24 hours INTEGUMENTARY: Skin is warm and dry with evidence of good perfusion. Anterior chest incision well approximated. Right lower extremity EVH site well ap proximated without redness or drainage. NEUROLOGIC: Cranial nerves II through XII intact MUSKULOSKELETAL: Able to move all extremities, strength equal bilaterally, gait normal PSYCHIATRIC: Alert and oriented to person place and time, appropriate affect, intact judgment and insight INVASIVE LINES AND TUBES: A/V epicardial pacemaker wires present, grounded. - Allied health notes Allied health notes reviewed: nursing - Labs CBC & Chem 7: 05/18/22 07:32 05/18/22 07:32 Labs: Abnormal Lab Results - Last 24 Hours (Table) 05/17/22 05/17/22 05/17/22 Range/Units 11:54 16:33 20:42 POC Glucose (mg/dL) 159 H 119 H 172 H (70-110) mg/dL 05/18/22 Range/Units 05:57 POC Glucose (mg/dL) 130 H (70-110) mg/dL - Imaging and Cardiology Chest x-ray: report reviewed, image reviewed Assessment and Plan Assessment: 1. Triple-vessel coronary artery disease with unstable angina, status post three-vessel CABG 2. Hyperlipidemia, treated, cholesterol 171, LDL 94.5 3. BPH, on Flomax outpatient 4. Obstructive sleep apnea without home CPAP use 5. Covid in June 2021 6. Skin cancer status post removal 7. Lifelong non-smoker 8. Family history of premature coronary artery disease 9. Postoperative acute blood loss anemia and thrombocytopenia, expected 10. Paroxysmal atrial fibrillation 11. YANDEL Plan: 1. Continue statin, Plavix, beta nicolas therapy. Will increase beta nicolas therapy as tolerated, increased to 50 mg twice daily today. 2. Continue amiodarone for A. fib prophylaxis. Will discharge on Eliquis 3. Encourage incentive spirometry is 10 times every hour while awake. Bronchodilators per pulmonology 4. Increase activity as tolerated. PT/OT/cardiac rehab consulted 5. Will monitor daily labs and x-rays. Electrolyte replacement per protocol. 6. GI/DVT prophylaxis 7. Pain control with current medication regimen 8. Insulin management per primary care service. Patient is not diabetic, preoperative hemoglobin A1c 5.5% 9. Strict accurate intake and output. Daily weights 10. Will discontinue epicardial pacemaker wires. Patient to remain on bedrest for 1 hour post-wire removal 11. Discharge planning in place, anticipate discharge to home with home care this afternoon 12. More recommendations to follow as appropriate
[2022-05-18 08:29] LABS: Basophils % (A) 0 %; Eosinophils # (A) 0.3 k/uL (0-0.7); Eosinophils % (A) 5 %; HCT 25.2 % (39.0-53.0); HGB 8.5 gm/dL (13.0-17.5); Lymphocytes # (A) 0.9 k/uL (1.0-4.8); Lymphocytes % (A) 14 %; MCH 33.3 pg (25.0-35.0); MCHC 33.9 g/dL (31.0-37.0); MCV 98.3 fL (80.0-100.0); Mean Platelet Volume 8.8; Monocytes # (A) 0.5 k/uL (0-1.0); Monocytes % (A) 8 %; Neutrophils # (A) 4.7 k/uL (1.3-7.7); Neutrophils % (A) 71 %; Platelet Count 188 k/uL (150-450); RBC 2.57 m/uL (4.30-5.90); RDW 13.5 % (11.5-15.5); WBC 6.7 k/uL (3.8-10.6)
[2022-05-18] MEDS ORDERED: METOPROLOL TARTRATE 50 MG TAB PO SCH (09:00)
[2022-05-18] MEDS: HEPARIN SODIUM,PORCINE/PF 5,000 UNIT/0.5 ML SYRINGE SQ SCH (09:41)
[2022-05-18] MEDS: ATORVASTATIN 40 MG TAB PO SCH (09:42)
[2022-05-18] MEDS: CLOPIDOGREL 75 MG TAB PO SCH (09:42)
[2022-05-18] MEDS: ASPIRIN 325 MG TAB PO SCH (09:42)
[2022-05-18] MEDS: AMIODARONE 200 MG TAB PO SCH (09:43)
[2022-05-18 09:47] VITALS: TEMP 98.2
--- NOTE | 2022-05-18 11:58 | US ---
EXAMINATION TYPE: US chest DATE OF EXAM: 05/18/2022 COMPARISON: XR CLINICAL HISTORY: Markings for thoracentesis by pulmonary staff. TECHNIQUE: Targeted ultrasound of the posterior lower EXAM MEASUREMENTS: Right Pleural Effusion pocket size: 10.8 cm Right skin surface to fluid distance: 2.3 cm Not marked, lung tissue seen anteriorly in the pocket at 2.1 cm. Left Pleural Effusion pocket size: 8.3 cm Left skin surface to fluid distance: 2.4 cm Not marked, lung tissue seen anteriorly in the pocket at 0.9 cm. Right side NOT marked for possible thoracentesis outside the dept. Left side NOT marked for possible thoracentesis outside the dept. Pulmonologists are able to review the images in the patient?s EMR. IMPRESSIONS: 1. Bilateral pleural effusions. 2. No markings were performed at this time
[2022-05-18 12:24] LABS: Glucose,Whole Blood 143 mg/dL (70-110)
[2022-05-18 12:36] VITALS: BP 105/50; PULSE 62; RESP 18
--- NOTE | 2022-05-18 13:29 | P.PN ---
Subjective This is a 77-year-old female with a past medical history of hyperlipidemia, obstructive sleep apnea, BPH, former smoker, hypertension. Patient follows in the office with Dr. Aggarwal. Recent diagnosis of coronary artery disease was admitted to the hospital yesterday and underwent an elective coronary artery bypass grafting. Patient underwent 3 vessel CABG with a left internal mammary artery to the left anterior descending artery, reverse saphenous vein graft off the aorta to the first obtuse marginal artery and the second obtuse marginal artery on 05/11/2022 Patient seen and examined at bedside, no acute distress. He denies any chest pain or shortness of breath. He is using his incentive spirometer but needs encouragement, achieving 750-1000mL. His vital signs are stable. He is maintaining sinus mechanism with HR 60s. He is currently maintained on amiodarone 400 mg twice a day, aspirin 325 mg daily, atorvastatin 40 mg daily, Plavix 75 mg daily, metoprolol titrate 50 mg twice a day GENERAL: Well-appearing, well-nourished and in no acute distress. NECK: Supple without JVD or thyromegaly. LUNGS: Breath sounds clear to auscultation bilaterally. Respiration equal and unlabored. No wheezes, rales or rhonchi. HEART: Regular rate and rhythm without murmurs, rubs or gallops. S1 and S2 heard. EXTREMITIES: Normal range of motion, no edema. No clubbing or cyanosis. Peripheral pulses intact. ASSESSMENT Coronary artery disease s/p 3 vessel CABG on 05/11/2022 Unstable angina Hyperlipidemia Obstructive sleep apnea Paroxysmal atrial fibrillation post operatively Acute kidney injury History of BPH PLAN Continue aspirin, statin, Plavix Continue beta nicolas Continue amiodarone Encourage incentive spirometry is 10 times every hour while awake. Increase activity as tolerated Follow up outpatient with Dr. Aggarwal. Post surgical management per CT surgery We will continue to follow patient. Nurse Practitioner note has been reviewed, I agree with a documented findings and plan of care. Patient was seen and examined. Objective - Vital Signs Vital signs: Vital Signs Temp 98.2 F 05/18/22 12:00 Pulse 62 05/18/22 12:00 Resp 18 05/18/22 12:00 BP 105/50 05/18/22 12:00 Pulse Ox 94 L 05/18/22 12:00 FiO2 3 05/12/22 00:00 Intake & Output 05/17/22 05/18/22 05/18/22 18:59 06:59 18:59 Intake Total 120 360 Output Total 751 350 210 Balance -631 -350 150 Weight 83.7 kg 80 kg Intake: Oral 120 360 Output: Urine 750 350 210 Urine/Stool Mix 1 Other: Voiding Method Urinal Toilet Toilet Urinal Urinal # Bowel Movements 1 ABP, PAP, CO, CI - Last Documented Arterial Blood Pressure 119/33 Pulmonary Artery Pressure 16/4 Cardiac Output 4.8 Cardiac Index 2.5 - Labs CBC & Chem 7: 05/18/22 07:32 05/18/22 07:32 Labs: Abnormal Lab Results - Last 24 Hours (Table) 05/17/22 05/17/22 05/18/22 Range/Units 16:33 20:42 05:57 RBC (4.30-5.90) m/uL Hgb (13.0-17.5) gm/dL Hct (39.0-53.0) % Lymphocytes # (1.0-4.8) k/uL Sodium (137-145) mmol/L BUN (9-20) mg/dL Creatinine (0.66-1.25) mg/dL Glucose (74-99) mg/dL POC Glucose (mg/dL) 119 H 172 H 130 H (70-110) mg/dL Calcium (8.4-10.2) mg/dL Magnesium (1.6-2.3) mg/dL 05/18/22 05/18/22 05/18/22 Range/Units 07:32 07:32 12:20 RBC 2.57 L (4.30-5.90) m/uL Hgb 8.5 L (13.0-17.5) gm/dL Hct 25.2 L (39.0-53.0) % Lymphocytes # 0.9 L (1.0-4.8) k/uL Sodium 132 L (137-145) mmol/L BUN 55 H (9-20) mg/dL Creatinine 2.65 H (0.66-1.25) mg/dL Glucose 120 H (74-99) mg/dL POC Glucose (mg/dL) 143 H (70-110) mg/dL Calcium 8.2 L (8.4-10.2) mg/dL Magnesium 2.6 H (1.6-2.3) mg/dL
--- NOTE | 2022-05-18 15:07 | P.PN ---
Subjective Progress Note Date: 05/18/22 on 05/18/2022, the patient is postop day #7. Doing extremely well. No specific complaints. No chest pain. No cough sputum production or cystitis or wheezing. Surgical wound site is dry clean and intact. Chest x-ray showed a small left- sided pleural effusion and ultrasound confirmed the findings, however this was quite small and not amenable for thoracentesis.the patient otherwise doing well. The patient is using incentive spirometer, pulling more than 1000, on room air oxygen, the pulse ox above 90%. The patient is ambulating. Hemodynamically stable and afebrile. Possible discharge home today. He remains in atrial fibrillation on telemetry. His BUN is a 55 with a creatinine of 2.6 and hemoglobin today is at 8.5. Objective - Vital Signs Vital signs: Vital Signs Temp 98.2 F 05/18/22 08:00 Pulse 99 05/18/22 08:27 Resp 20 05/18/22 08:00 BP 142/63 05/18/22 08:00 Pulse Ox 93 L 05/18/22 08:00 FiO2 3 05/12/22 00:00 Intake & Output 05/17/22 05/18/22 05/18/22 18:59 06:59 18:59 Intake Total 120 180 Output Total 751 350 210 Balance -631 -350 -30 Weight 83.7 kg 80 kg Intake: Oral 120 180 Output: Urine 750 350 210 Urine/Stool Mix 1 Other: Voiding Method Urinal Toilet Toilet Urinal Urinal # Bowel Movements 1 ABP, PAP, CO, CI - Last Documented Arterial Blood Pressure 119/33 Pulmonary Artery Pressure 16/4 Cardiac Output 4.8 Cardiac Index 2.5 - Exam GENERAL EXAM: Alert, 77-year-old gentleman, up in a chair at the bedside, on room air, comfortable in no apparent distress. HEAD: Normocephalic. EYES: Normal reaction of pupils, equal size. NOSE: Clear with pink turbinates. THROAT: No erythema or exudates. NECK: No masses, no JVD. CHEST: No chest wall deformity. Sternum stable. Dressing dry and intact. Heart Hugger in place. LUNGS: Equal air entry with faint crackles in the posterior bases. CVS: S1 and S2 normal with no audible murmur, regular rhythm. ABDOMEN: No hepatosplenomegaly, normal bowel sounds, no guarding or rigidity. SPINE: No scoliosis or deformity SKIN: No rashes CENTRAL NERVOUS SYSTEM: No focal deficits, tone is normal in all 4 extremities. EXTREMITIES: There is no peripheral edema. No clubbing, no cyanosis. Peripheral pulses are intact. - Labs CBC & Chem 7: 05/18/22 07:32 05/18/22 07:32 Labs: Abnormal Lab Results - Last 24 Hours (Table) 05/17/22 05/17/22 05/17/22 Range/Units 11:54 16:33 20:42 RBC (4.30-5.90) m/uL Hgb (13.0-17.5) gm/dL Hct (39.0-53.0) % Lymphocytes # (1.0-4.8) k/uL Sodium (137-145) mmol/L BUN (9-20) mg/dL Creatinine (0.66-1.25) mg/dL Glucose (74-99) mg/dL POC Glucose (mg/dL) 159 H 119 H 172 H (70-110) mg/dL Calcium (8.4-10.2) mg/dL Magnesium (1.6-2.3) mg/dL 05/18/22 05/18/22 05/18/22 Range/Units 05:57 07:32 07:32 RBC 2.57 L (4.30-5.90) m/uL Hgb 8.5 L (13.0-17.5) gm/dL Hct 25.2 L (39.0-53.0) % Lymphocytes # 0.9 L (1.0-4.8) k/uL Sodium 132 L (137-145) mmol/L BUN 55 H (9-20) mg/dL Creatinine 2.65 H (0.66-1.25) mg/dL Glucose 120 H (74-99) mg/dL POC Glucose (mg/dL) 130 H (70-110) mg/dL Calcium 8.2 L (8.4-10.2) mg/dL Magnesium 2.6 H (1.6-2.3) mg/dL Assessment and Plan Plan: Coronary artery disease status post coronary artery bypass grafting utilizing a PETERS to the LAD, saphenous vein grafts to the OM1 and of 12. Postoperative day #7 History of hypertension History of hyperlipidemia acute kidney injury in the creatinine is at 2.69, creatinine remains stable over the past several days with some limited improvement. Lifelong nonsmoker. Benign prostatic hyperplasia Family history of coronary artery disease, his father passed at age 49 from myocardial infarction Postoperative paroxysmal atrial fibrillation Covid 19 infection back in June 2021 Obstructive sleep apnea anemia, postoperative, expected outcome surgery Plan: there is no need for thoracentesis ultrasound of the chest was noted continue using incentive spirometer Monitor renal function Continue aspirin and Plavix Continue statins Surgical wound site is dry clean and intact May to be started on long-term anticoagulation regarding paroxysmal atrial fibrillation, this will be initiated after discontinuation of the epicardial pacemaker wires. We'll continue to follow
--- NOTE | 2022-05-18 15:32 | P.PN ---
Subjective Progress Note Date: 05/18/22 HISTORY OF PRESENT ILLNESS 77-year-old male patient with a known history of hypertension, hyperlipidemia, BPH; presented here 04/09/2022 for an elective cardiac catheterization and was found to have triple-vessel coronary artery disease. Echocardiogram had revealed preserved left ventricular systolic function with ejection fraction 55-60%. No significant valvular abnormalities. He was recommended coronary artery bypass grafting; undergone a PETERS to LAD, saphenous vein grafts to the OM1 and OM 2. 05/15/2022 Patient is seen and evaluated in follow-up in the intensive care unit, as selective care unit overflow. He is sitting up in chair at the bedside. Awake and alert in no acute distress. Remains on O2 at 2 L per nasal cannula with O2 saturation over 90% Patient remains on dopamine at 2 mcg/kg/m. He is currently in normal sinus rhythm. He remains on oral amiodarone. Chest x-ray reveals basilar atelectasis with small effusions. Persistent cardiomegaly. Pulmonary venous congestion is improved. He is status post 2 units of fresh frozen plasma one unit of platelets this admission. Blood work reveals White count 7.3. Hemoglobin 8.5. Platelets 117. Sodium 127. Potassium 4.3. Chloride 93. BUN 53. Creatinine 2.99. Magnesium 2.5. Remains on bronchodilators. Heparin for DVT prophylaxis. Titrate the FiO2 as tolerated; Increase his activity as tolerated To be transferred to selective care unit 05/16/2022 Patient is seen sitting up in bedside chair; family at bedside; reports frequent coughing Vital signs are reviewed and remained stable; labs are reviewed and stable with WBC 6.6, hemoglobin Physical 160, sodium 133, BUN/creatinine 54/2.3 He remains on beta blockers and amiodarone. He has also on dopamine at 2 mcg/kg/m. Tubes have been removed. He remains with an AV epicardial pacemaker wires that is crowded. Continues working well with the incentive spirometer. X-ray shows persistent basilar atelectasis/small effusions. Stable. He is status post 2 units of fresh frozen plasma one unit of platelets this admission. 05/17/2022 Patient is seen and evaluated sitting up in bedside chair in selective care unit; continues to complain of cough; reports he is using incentive spirometer Vital signs are reviewed temperature 98.6, pulse 74, respiration 20 and blood pressure 123/70 with O2 saturation of 93% on 3 L Laboratory review shows sodium 1:30, potassium 4.3, BUN/creatinine of 57/41, WBC of 6.4, hemoglobin 8.3 with platelet count Patient remains on amiodarone and Lopressor for A. fib prophylaxis; Aspirin, statins and Plavix; beta blockers have been increased to 25 mg 3 times a day Patient encouraged to increase activity; has been evaluated by PT/OT and inpatient rehab as recommended 05/18: Patient states that he believes he is going home today. He will be home with his and his son will be there also a second set will be arriving on to stay with the mouth. Pacer wires to be removed today. He has been afebrile, heart rate 62, blood pressure 105/50, pulse ox 94% on room air. Repeat blood work reveals WBC 6.7, hemoglobin 8.5, platelet count 188. Sodium 132, potassium 4.3, chloride 98, CO2 26, BUN 55 creatinine 2.65. Currently blood glucose running between 130s and 172. Magnesium 2.6. Ultrasound of the chest revealed a right pleural effusion with a 10.8 cm pocket, left pleural effusion which 8.3 cm pocket REVIEW OF SYSTEMS Constitutional: No fever, no chills, no night sweats. No weight change. No weakness, fatigue or lethargy. No daytime sleepiness. EENT: No headache. No blurred vision or double vision, no loss of vision. No loss of Hearing, no ringing in the ears, no dizziness. No nasal drainage or congestion. No epistaxis. No sore throat. Lungs: No shortness of breath, cough, no sputum production. No wheezing. Cardiovascular: No chest pain, no lower extremity edema. No palpitations. No paroxysmal nocturnal dyspnea. No orthopnea. No lightheadedness or dizziness. No syncopal episodes. Abdominal: No abdominal pain. No nausea, vomiting. No diarrhea. No constipation. No bloody or tarry stools. No loss of appetite. Genitourinary: No dysuria, increased frequency, urgency. No urinary retention. Musculoskeletal: No myalgias. No muscle weakness, no gait dysfunction, no frequent falls. No back pain. No neck pain. Integumentary: No wounds, no lesions. No rash or pruritus. No unusual bruising. . Neurologic: No aphasia. No facial droop. No change in mentation. No head injury. No headache. No paralysis. No paresthesia. Psychiatric: No depression. No anxiety. Endocrine: No abnormal blood sugars. No weight change. PHYSICAL EXAMINATION Gen: This is a 77-year-old male. He is resting in a recliner and appears to be comfortable and in no acute distress. HEENT: Head is atraumatic, normocephalic. Pupils equal, round. Sclerae is anicteric. NECK: Supple. No JVD. No lymphadenopathy. No thyromegaly. LUNGS: Clear to auscultation. No wheezes or rhonchi. No intercostal retractions. HEART: Regular rate and rhythm. No murmur. ABDOMEN: Soft. Bowel sounds are present. No masses. No tenderness. EXTREMITIES: No pedal edema. No calf tenderness. NEUROLOGICAL: Patient is awake, alert and oriented x3. Cranial nerves 2 through 12 are grossly intact. ASSESSMENT AND PLAN 1. Coronary artery disease status post 3 vessel CABG 05/11. Continue plan per cardiothoracic team. Continue aspirin and Plavix, statin. 2. Bilateral pleural effusions. No plan for thoracentesis. Continue incentive spirometry. 3. Hyperlipidemia. 4. Postop paroxysmal atrial fibrillation not unexpected with surgery. Amiodarone 400 mg twice daily, Lopressor 50 mg twice daily. 5. Obstructive sleep apnea. 6. Acute kidney injury. 7. Benign prostatic hypertrophy. Monitor for urinary retention. Continue Flomax 0.4 mg at bedtime DISCHARGE PLAN home. Impression and plan of care have been directed as dictated by the signing physician. Ila Torres nurse practitioner acting as scribe for signing physician. Objective - Vital Signs Vital signs: Vital Signs Temp 98.4 F 05/17/22 23:30 Pulse 99 05/18/22 08:27 Resp 18 05/18/22 04:00 BP 125/68 05/18/22 04:00 Pulse Ox 94 L 05/18/22 04:00 FiO2 3 05/12/22 00:00 Intake & Output 05/17/22 05/18/22 05/18/22 18:59 06:59 18:59 Intake Total 120 Output Total 751 350 Balance -631 -350 Weight 83.7 kg 80 kg Intake: Oral 120 Output: Urine 750 350 Urine/Stool Mix 1 Other: Voiding Method Urinal Toilet Urinal # Bowel Movements 1 ABP, PAP, CO, CI - Last Documented Arterial Blood Pressure 119/33 Pulmonary Artery Pressure 16/4 Cardiac Output 4.8 Cardiac Index 2.5 - Labs CBC & Chem 7: 05/18/22 07:32 05/18/22 07:32 Labs: Abnormal Lab Results - Last 24 Hours (Table) 05/17/22 05/17/22 05/17/22 Range/Units 11:54 16:33 20:42 RBC (4.30-5.90) m/uL Hgb (13.0-17.5) gm/dL Hct (39.0-53.0) % Lymphocytes # (1.0-4.8) k/uL Sodium (137-145) mmol/L BUN (9-20) mg/dL Creatinine (0.66-1.25) mg/dL Glucose (74-99) mg/dL POC Glucose (mg/dL) 159 H 119 H 172 H (70-110) mg/dL Calcium (8.4-10.2) mg/dL Magnesium (1.6-2.3) mg/dL 05/18/22 05/18/22 05/18/22 Range/Units 05:57 07:32 07:32 RBC 2.57 L (4.30-5.90) m/uL Hgb 8.5 L (13.0-17.5) gm/dL Hct 25.2 L (39.0-53.0) % Lymphocytes # 0.9 L (1.0-4.8) k/uL Sodium 132 L (137-145) mmol/L BUN 55 H (9-20) mg/dL Creatinine 2.65 H (0.66-1.25) mg/dL Glucose 120 H (74-99) mg/dL POC Glucose (mg/dL) 130 H (70-110) mg/dL Calcium 8.2 L (8.4-10.2) mg/dL Magnesium 2.6 H (1.6-2.3) mg/dL
--- NOTE | 2022-05-18 16:10 | P.DS ---
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 Triple-vessel coronary artery disease with unstable angina 2. Hyperlipidemia, treated, cholesterol 171, LDL 94.5 3. BPH, on Flomax outpatient 4. Obstructive sleep apnea without home CPAP use 5. Covid in June 2021 6. Skin cancer status post removal 7. Lifelong nonsmoker 8. Family history of premature coronary artery disease 9. Postoperative acute blood loss anemia and thrombocytopenia, expected 10. Paroxysmal atrial fibrillation 11. Acute kidney injury PRINCIPAL PROCEDURE: 1. Coronary bypass grafting 3 with left internal mammary artery to the left anterior descending artery, reverse saphenous vein graft off the aorta to the first obtuse marginal artery and the second obtuse marginal artery 2. Right lower extremity greater saphenous vein endoscopic harvesting 3. Clip ligation of the left atrial appendage with a 35 mm AtriClip 4. Intraoperative transesophageal echocardiogram HISTORY OF PRESENT ILLNESS: This is a 77-year-old gentleman who follows on an outpatient basis with Dr Mcwilliams for primary care and Dr. JORGE Aggarwal for cardiology. Recently he had been experiencing shortness of breath with mild to moderate activity. He underwent stress testing which was abnormal and subsequently underwent heart catheterization which demonstrated triple-vessel coronary artery disease. Echocardiogram demonstrated normal left ventricular systolic function with EF 55-60%, mild aortic regurgitation, trace mitral regurgitation, and trace tricuspid regurgitation. The patient was referred to Dr. Elkins from cardiothoracic surgery. He was recommended to undergo elective coronary artery bypass surgery. The usual perioperative course was discussed in detail with the patient and his family, all risks and benefits were explained, all questions were answered, and consent was obtained to proceed with surgery. The patient was scheduled for surgery at the earliest possible date. HOSPITAL COURSE: The patient was brought to the hospital on 05/11/22, taken to the preoperative area, prepared in the usual fashion, and subsequently taken to the operating room where Dr. Elkins performed three-vessel CABG. Upon completion of surgery the patient was transferred to the cardiovascular intensive care unit where he was recovered and monitored hemodynamically. He was extubated, all lines, tubes, and drips were discontinued when appropriate, and he was transferred to 3 S cardiac stepdown unit for further monitoring and rehabilitation. He did go in and out of paroxysmal atrial fibrillation and was started on Amiodarone and discharged on Eliquis. His oxygen was titrated down, he continued to work with physical and occupational therapy, he was tolerating oral diet, his pain was controlled, and he was ready to be discharged to home with [facility] on postoperative day #7. He received written and verbal instruction regarding his medications, activity restrictions, signs and symptoms requiring physician notification, and follow-up appointments. Patient Condition at Discharge: Stable Plan - Discharge Summary Discharge Rx Participant: Yes New Discharge Prescriptions: New Clopidogrel [Plavix] 75 mg PO DAILY #30 tab Pantoprazole [Protonix] 40 mg PO AC-BRKFST #30 tab Sennosides-Docusate Sodium [Senokot-S] 2 each PO HS PRN tab PRN Reason: Constipation Acetaminophen Tab [Tylenol] 650 mg PO Q4HR PRN tab PRN Reason: Fever And/ Or Pain Amiodarone [Cordarone] 400 mg PO BID #29 tab Apixaban [Eliquis] 2.5 mg PO BID #60 tab Atorvastatin [Lipitor] 40 mg PO DAILY #30 tab Metoprolol Tartrate [Lopressor] 50 mg PO BID #60 tab Continue Tamsulosin [Flomax] 0.4 mg PO HS Discontinued Metoprolol Tartrate [Lopressor] 25 mg PO QAM Aspirin [Adult Low Dose Aspirin EC] 81 mg PO QAM Simvastatin [Zocor] 40 mg PO HS Discharge Medication List Tamsulosin [Flomax] 0.4 mg PO HS 04/08/22 [History] Acetaminophen Tab [Tylenol] 650 mg PO Q4HR PRN tab 05/18/22 [Rx] Amiodarone [Cordarone] 400 mg PO BID #29 tab 05/18/22 [Rx] Apixaban [Eliquis] 2.5 mg PO BID #60 tab 05/18/22 [Rx] Atorvastatin [Lipitor] 40 mg PO DAILY #30 tab 05/18/22 [Rx] Clopidogrel [Plavix] 75 mg PO DAILY #30 tab 05/18/22 [Rx] Metoprolol Tartrate [Lopressor] 50 mg PO BID #60 tab 05/18/22 [Rx] Pantoprazole [Protonix] 40 mg PO AC-BRKFST #30 tab 05/18/22 [Rx] Sennosides-Docusate Sodium [Senokot-S] 2 each PO HS PRN tab 05/18/22 [Rx] Follow up Appointment(s)/Referral(s): Klaudia Aggarwal MD [STAFF PHYSICIAN] - 2 Weeks (Office will call with appointment) Rehab Laly LINDACardiac [NON-STAFF] - 4 Weeks (You will receive a phone call in approximately 4-6 weeks for evaluation for cardiac rehab) Krista Michele,Home Care [NON-STAFF] - 1-2 Days (Home care will come out the day after discharge, then 2-3 times per week as needed) Yazan Mcwilliams MD [Primary Care Provider] - 05/26/22 10:00 am (Appointment is with ASHLYN Wilks) Armand Terry NPC [Nurse Practitioner] - 05/22/22 10:45 am (To be seen in the surgeon's office behind the hospital in [facility], [address] [place] [address] [address] ) Fazal Snyder DO [Doctor of Osteopathic Medicine] - 06/12/22 2:15 pm Rhett Elkins MD [STAFF PHYSICIAN] - 06/15/22 1:00 pm Ambulatory/Diagnostic Orders: Complete Blood Count w/diff [LAB.AMB] Time Frame: 3 Days, Location: None Selected Comprehensive Metabolic Panel [LAB.AMB] Time Frame: 3 Days, Location: None Selected Activity/Diet/Wound Care/Special Instructions: DISCHARGE INSTRUCTIONS: 1. No driving for 4 weeks, or until physician gives their ok. 2. The patient should sleep in their own bed, no medical bed needed. 3. Stairs are not an issue. If the bedroom is upstairs, it is advised that the patient go up at night and down in the morning for the first week. Go slowly, using handrail and take 1 step at a time. 4. REX hose are to be worn for 30 days or until physician discontinues. 5. Heart hugger is to be worn 100% of the time until physician discontinues.(except when showering) 6. No lifting, pushing, or pulling more than 10 pounds for 12 weeks. The physician will advise of any restriction changes. 7. The patient is expected to continue the prescribed walking program. 8. Continue pain control per as needed orders. 9. Continue with incentive spirometry and splinting/heart hugger until otherwise directed by the physician. 10. Must shower daily using liquid antibacterial soap and a separate white washcloth for each individual incision. 11. Routine sternal incision care. No powders, lotions, ointments on incisions. No dressings are necessary on incisions unless they are draining. Dermabond tape is to remain on sternal incision until surgeon follow-up. 12. Please call surgeon/AIR DEFENSE SPECIALIST for temp greater than 101 F or purulent drainage from incisions. 13. You should weigh yourself daily, record and bring log with you to follow up appointments. 14. All prescriptions given by surgeon for 30 days. Refills need to be filled through under presser/primary care physician. 15. A Red armband has been placed on the patient. It should be worn for 30 days post surgery and will be removed by the cardiac surgeons. If an ER visit is necessary, please make sure the number on the Red armband is called. 16. You have been referred to and are expected to begin Cardiac Rehab in approximately 4-6 weeks. HOME HEALTH SERVICES TO PROVIDE: RN SKILLED HOME CARE SERVICES FOR POST-OP SURGICAL PATIENTS WITH THE FOLLOWING: Coronary Artery Bypass Surgery (CABG), Mitral Valve Replacement/Repair ( MVR), Aortic Valve Replacement/Repair (AVR) RN TO CONTINUE EDUCATION FROM ``ROAD TO A HEALTH HEART PATIENT EDUCATION MANUAL (GIVEN TO PATIENT IN THE HOSPITAL) MEDICATION RECONCILIATION WITH EDUCATION NEEDED ON FIRST HOME VISIT EMPHASIZE IMPORTANCE OF WEARING BREAST SUPPORT/HEART HUGGER ENCOURAGE USE OF INCENTIVE SPIROMETER 10 X EVERY HOUR WHILE AWAKE ENCOURAGE UTILIZATION OF LOWER EXTREMITY COMPRESSION STOCKINGS/REX HOSE and ELEVATE LEGS ABOVE LEVEL OF HEART WHILE AT REST. ENCOURAGE AMBULATION 3-5x/day INCREASING TOLERATES, WHILE AVOIDING EXTREMES IN TEMPERATURE FREQUENCY: RN TO OPEN THE PATIENT WITHIN 24 HOURS OF DISCHARGE FROM THE HOSPITAL WITH TELEHEALTH INSTALLED AT [facility] [place], RN TO VISIT 2-3 X A WEEK FOR 4 WEEKS ESTABLISHED BY PATIENT NEEDS. LABORATORY: CBC, CMP TO BE DRAWN ON THE THIRD DAY HOME, (RAN STAT) FAX RESULTS TO [phone]. TELEHEALTH PARAMETERS: WEIGHT: NOTIFY MD OF WEIGHT GAIN OF 2 LBS IN 24 HOURS OR 5 LBS IN ONE WEEK HR: NOTIFY MD OF HR <55 BPM OR HR>100 BPM BP: NOTIFY MD IF BP <90/55 OR BP>140/100 O2 SAT: NOTIFY MD IF PO2<93% ON ROOM AIR SEND TELEHEALTH REPORT TO TRANSPORT TRUCK DRIVER AND CARDIOVASCULAR SURGEON THE FIRST WEEK OF CARE AND THEN BI-WEEKLY. PLEASE ADDITIONALLY COMMUNICATE ANY ABNORMALS AND NEW FINDINGS TO THE SURGEONS OFFICE. Discharge Disposition: HOME WITH HOME HEALTH SERVICES
== END 2022-05-18 15:42 | disposition home health service (06) | DRG 236 ==
LOC: 2ORMAIN 05:34 → 2SICU 13:12 → 3SCARD 05-16 05:57
PROVIDERS: ADMIT Thoracic Surgery (Cardiothoracic Vascular Surgery); ATTEND Thoracic Surgery (Cardiothoracic Vascular Surgery)
PROC: 06BP4ZZ Excision of Right Saphenous Vein, Percutaneous Endoscopic Approach (ICD-10-PCS; principal; 2022-05-11 08:00)
PROC: 02100Z9 Bypass Coronary Artery, One Artery from Left Internal Mammary, Open Approach (ICD-10-PCS; principal; 2022-05-11 08:00)
PROC: 30243R1 Transfusion of Nonautologous Platelets into Central Vein, Percutaneous Approach (ICD-10-PCS; principal; 2022-05-11 08:00)
PROC: 5A1221Z Performance of Cardiac Output, Continuous (ICD-10-PCS; principal; 2022-05-11 08:00)
PROC: 02L70CK Occlusion of Left Atrial Appendage with Extraluminal Device, Open Approach (ICD-10-PCS; principal; 2022-05-11 08:00)
PROC: 30243K1 Transfusion of Nonautologous Frozen Plasma into Central Vein, Percutaneous Approach (ICD-10-PCS; principal; 2022-05-11 08:00)
PROC: 021109W Bypass Coronary Artery, Two Arteries from Aorta with Autologous Venous Tissue, Open Approach (ICD-10-PCS; principal; 2022-05-11 08:00)
PROC: B24BZZ4 Ultrasonography of Heart with Aorta, Transesophageal (ICD-10-PCS; 2022-05-11 08:00)
DX: I25.110 Atherosclerotic heart disease of native coronary artery with unstable angina pectoris (principal); N17.9 Acute kidney failure, unspecified; J90 Pleural effusion, not elsewhere classified; D62 Acute posthemorrhagic anemia; J98.11 Atelectasis; I47.2 Ventricular tachycardia; D69.6 Thrombocytopenia, unspecified; I48.0 Paroxysmal atrial fibrillation; E86.0 Dehydration; E78.5 Hyperlipidemia, unspecified; I11.9 Hypertensive heart disease without heart failure; R73.9 Hyperglycemia, unspecified; G47.33 Obstructive sleep apnea (adult) (pediatric); N40.0 Benign prostatic hyperplasia without lower urinary tract symptoms; H91.90 Unspecified hearing loss, unspecified ear; M19.90 Unspecified osteoarthritis, unspecified site; Z79.82 Long term (current) use of aspirin; Z79.899 Other long term (current) drug therapy; Z85.828 Personal history of other malignant neoplasm of skin; Z86.16 Personal history of COVID-19; Z87.19 Personal history of other diseases of the digestive system; Z87.39 Personal history of other diseases of the musculoskeletal system and connective tissue; Z97.4 Presence of external hearing-aid; Z87.891 Personal history of nicotine dependence; Z90.89 Acquired absence of other organs; Z98.890 Other specified postprocedural states; Z88.0 Allergy status to penicillin; Z82.49 Family history of ischemic heart disease and other diseases of the circulatory system
CPT/HCPCS: 36430; 71045; 71046; 76604; 80048; 80053; 82330; 82805; 83735; 85025; 85027; 85520; 85610; 85730; 86850; 86891; 86900; 86901; 86920; 93005; 94002; 94640; 94760

== ENCOUNTER → 2022-05-22 | Outpatient (CLI) | payer MEDICARE ==
[2022-05-22 19:31] LABS: African American GFR (CKD) 26.2 (60.0-200.0); Albumin 3.5 g/dL (3.8-4.9); Albumin/Globulin Ratio 1.56 (1.60-3.17); Anion Gap 10.4 mmol/L (10.00-18.00); BUN/Creat Ratio 19.04 Ratio (12.00-20.00); Blood Urea Nitrogen 49.5 mg/dL (9.0-27.0); Calcium 8.7 mg/dL (8.7-10.3); Carbon Dioxide 23.3 mmol/L (20.0-27.5); Globulin 2.2 g/dL (1.6-3.3); Non-African American GFR(CKD) 22.6 (60.0-200.0); Potassium 5.4 mmol/L (3.5-5.5); Total Bilirubin 0.5 mg/dL (0.30-1.20); Total Protein 5.7 g/dL (6.2-8.2)
== END | disposition home or self-care (01) ==
LOC: LABWHC1 12:31
PROVIDERS: ATTEND Thoracic Surgery (Cardiothoracic Vascular Surgery)
DX: I25.10 Atherosclerotic heart disease of native coronary artery without angina pectoris (principal); I48.91 Unspecified atrial fibrillation; N17.9 Acute kidney failure, unspecified
CPT/HCPCS: 36415; 80053

== ENCOUNTER → 2022-05-26 | Outpatient (CLI) | payer MEDICARE ==
--- NOTE | 2022-05-26 12:20 | XR ---
EXAMINATION TYPE: XR chest 2V DATE OF EXAM: 05/26/2022 COMPARISON: 05/18/2022 HISTORY: 77-year-old male shortness of breath, fluid overload TECHNIQUE: Frontal and lateral views FINDINGS: Left heart margin obscured by adjacent pleural parenchymal opacity. Median sternotomy wires and post- CABG clips. There is an enlarging moderate left pleural effusion. There is a trace effusion on the ri ght on the lateral view. Right lung otherwise clear. IMPRESSION: Enlarging moderate-sized left pleural effusion with adjacent atelectasis and/or consolidation. Trace effusion on the right seen on the lateral view.
== END | disposition home or self-care (01) ==
LOC: RADXRMAIN 11:17
PROVIDERS: ATTEND Nurse Practitioner Family
DX: E87.70 Fluid overload, unspecified (principal)
CPT/HCPCS: 71046

== ENCOUNTER → 2022-05-27 | Outpatient (CLI) | payer MEDICARE ==
--- NOTE | 2022-05-27 15:14 | US ---
EXAMINATION TYPE: US chest DATE OF EXAM: 05/27/2022 COMPARISON: Chest x-ray from yesterday CLINICAL HISTORY: J90 PLEURAL EFFUSION. Open heart surgery 2 weeks ago. Checking left chest for pleur al effusion TECHNIQUE: Targeted ultrasound of the posterior lower left hemithorax EXAM MEASUREMENTS: Left Pleural Effusion pocket size: 9.2 cm Left skin surface to fluid distance: 2.1 cm Left side marked for possible thoracentesis outside the dept. Pulmonologists are able to review the images in the patient?s EMR. IMPRESSIONS: Moderate size left pleural effusion is confirmed as suspected on recent x-ray.
== END | disposition home or self-care (01) ==
LOC: RADUSWWP 13:33
PROVIDERS: ATTEND Family Medicine
DX: J90 Pleural effusion, not elsewhere classified (principal)
CPT/HCPCS: 76604

== ENCOUNTER 2022-05-28 11:37 | Day surgery (SDC) | payer MEDICARE ==
[2022-05-28 12:13] VITALS: RESP 16; TEMP 98.7
[2022-05-28 13:00] VITALS: BP 136/70; PULSE 78
--- NOTE | 2022-05-28 13:05 | XR ---
EXAMINATION TYPE: XR chest 1V portable DATE OF EXAM: 05/28/2022 HISTORY: post thoracentesis COMPARISON: 05/26/2022 TECHNIQUE: Single view of the chest is submitted. FINDINGS: Demonstrated are scattered senescent parenchymal change. Interval diminution of left-sided pleural effusion. No evidence for pneumothorax. The right lung is c lear. The heart is stable. Hilar and mediastinal structures are within normal limits. Degenerative changes are seen of the dorsal spine. IMPRESSION: 1. Interval diminution of left-sided pleural effusion. No evidence for pneumothorax. The right lung is clear.
--- NOTE | 2022-05-28 20:06 | OP ---
OPERATIVE REPORT OPERATIVE REPORT: Left-sided thoracentesis. PREOPERATIVE DIAGNOSIS: Left pleural effusion. POSTOPERATIVE DIAGNOSIS: Left pleural effusion. ANESTHESIA USED: Two mL of 1% lidocaine. PROCEDURE DESCRIPTION: The patient was placed in a sitting-upright position, leaning forward on a table. The area below the left scapula was prepared in a sterile fashion and drapes were applied. The fluid pocket was earlier localized by ultrasound, and ultrasound marking was placed basically at the eighth intercostal space and tip of the scapula. The area was locally anesthetized with lidocaine. Then a small tiny incision was made, and the thoracentesis catheter and needle were used, advanced into the pleural space until the fluid was localized. Then the catheter was advanced over the needle into the pleural space, and the needle was pulled out of the pleural space. Freely flowing fluid was removed. We were able to drain a total of 1260 mL of serosanguineous fluid from the left pleural space. Procedure was well tolerated; no complications. Chest x-ray postoperatively showed no evidence of pneumothorax and complete clearance of the left pleural space. Again, no complications, and the fluid was sent for different diagnostic studies. MMODL / IJN: [id number] /
[2022-05-29 04:32] LABS: Appearance,BF Hazy
[2022-05-29 10:39] LABS: Glucose, BF Source Pleural Fluid; Glucose, Body Fluid 121 mg/dL; LDH, Body Fluid Source Pleural Fluid; T. Protein, Body Fluid Source Pleural Fluid; Total Protein, Body Fluid 3740 mg/dL
== END 2022-05-29 07:23 | disposition home or self-care (01) ==
LOC: PROCWHC3 11:37
PROVIDERS: ATTEND Internal Medicine
DX: J90 Pleural effusion, not elsewhere classified (principal)
CPT/HCPCS: 32554; 71045; 82945; 83615; 84157; 87070; 87075; 87116; 87205; 87206; 88108; 88305; 89050